=== PATIENT | male | born 1935 | race Caucasian/White ===

== ENCOUNTER 2018-01-12 16:56 | Inpatient (IN) | payer MEDICARE, MEDICAID ==
[~2018-01-12] VITALS: Ht 172.7 cm; Wt 74.5 kg
[2018-01-12] MEDS ORDERED: ATEN50TA PO (17:20)
[2018-01-12] MEDS ORDERED: PREG75CA PO ×2 (17:20→22:38)
[2018-01-12] MEDS ORDERED: APIX2.5T PO (17:21)
[2018-01-12] MEDS ORDERED: ROSU20TA PO ×2 (17:21→22:38)
[2018-01-12] MEDS ORDERED: SITA1TAB2 PO ×2 (17:22→22:38)
[2018-01-12] MEDS ORDERED: AMIO200T4 PO (17:22)
[2018-01-12 17:23] LABS: BASOPHILS # (AUTO) 0.1 K/uL (0.0-8.0); BASOPHILS % (AUTO) 0.9 % (0.0-2.0); EOSINOPHILS # (AUTO) 0.1 K/uL (0.0-0.7); EOSINOPHILS % (AUTO) 1.1 % (0.0-7.0); HEMATOCRIT 35.6 % (36.7-47.1); HEMOGLOBIN 12.3 g/dL (12.5-16.3); LYMPHOCYTES # (AUTO) 0.8 K/uL (20.0-40.0); LYMPHOCYTES % (AUTO) 8.6 % (20.5-51.5); MEAN CORPUSCULAR HEMOGLOBIN 30.6 uug (23.8-33.4); MEAN CORPUSCULAR HGB CONC 35 g/dL (32.5-36.3); MEAN CORPUSCULAR VOLUME 88.5 fL (73.0-96.2); MONOCYTES # (AUTO) 0.8 K/uL (2.0-10.0); MONOCYTES % (AUTO) 8.5 % (0.0-11.0); NEUTROPHILS # (AUTO) 7.4 K/uL (1.8-8.9); NEUTROPHILS % (AUTO) 80.9 % (38.5-71.5); PLATELET COUNT (AUTO) 226 K/uL (152-348); RED BLOOD CELL COUNT(AUTO) 4.03 MIL/uL (4.06-5.63); WHITE BLOOD COUNT (AUTO) 9.1 K/uL (3.6-10.2)
[2018-01-12] MEDS ORDERED: POTA10CA43 PO (17:23)
[2018-01-12] MEDS ORDERED: SPIR25TA6 PO (17:23)
[2018-01-12] MEDS ORDERED: ZOLP5TAB8 PO (17:24)
[2018-01-12] MEDS ORDERED: ESOM40CA PO (17:25)
[2018-01-12] MEDS ORDERED: CLON0.3T PO (17:25)
[2018-01-12] MEDS ORDERED: FURO-151 PO (17:25)
[2018-01-12] MEDS ORDERED: DUTA0.5C PO (17:26)
[2018-01-12] MEDS ORDERED: GLIM4TAB3 PO (17:26)
[2018-01-12 17:31] LABS: CARBON DIOXIDE 24 mmol/L (21-32); CHLORIDE 99 mmol/L (98-107); CREATININE 2.6 mg/dL (0.6-1.3); POTASSIUM 4.2 mmol/L (3.5-5.1); UREA NITROGEN, BLOOD 35 mg/dL (7-18)
[2018-01-12 17:44] LABS: GLUCOSE 326 mg/dL (74-106)
[2018-01-12 17:46] LABS: ALANINE AMINOTRANSFERASE 25 U/L (16-63); ALKALINE PHOSPHATASE 51 U/L (50-136); ASPARTATE AMINOTRANSFERASE 18 U/L (15-37); BILIRUBIN,DIRECT 0.2 mg/dL (0.0-0.2); BILIRUBIN,TOTAL 0.7 mg/dL (0.2-1.0); TOTAL PROTEIN, SERUM 7.2 g/dL (6.4-8.2)
[2018-01-12] MEDS ORDERED: NITROGLYCERIN OINT 1 GM PACKET TP ONE ×2 (18:00→18:15)
[2018-01-12] MEDS ORDERED: FUROSEMIDE 20 MG/2 ML VIAL IV ONE (18:15)
[2018-01-12] MEDS ORDERED: FUROSEMIDE 40 MG/4 ML VIAL ONE (18:32)
[2018-01-12 19:42] VITALS: BP 169/86
[2018-01-12] MEDS ORDERED: Z GUARD REMEDY PASTE 57 GM TUBE TOP PRN (22:00)
[2018-01-12] MEDS ORDERED: DEXTROSE 50% 50 ML DISP.SYRIN IV PRN (22:00)
[2018-01-12] MEDS ORDERED: IPRATROPIUM BROMIDE 0.5 MG/2.5 ML NEBU NEB PRN (22:00)
[2018-01-12] MEDS ORDERED: ACETAMINOPHEN 325 MG TABLET PO PRN (22:00)
[2018-01-12] MEDS ORDERED: ONDANSETRON 4 MG/2 ML VIAL IV PRN (22:00)
[2018-01-12] MEDS ORDERED: HYDROCODONE/APAP 5-325MG TABLET PO PRN (22:00)
[2018-01-12] MEDS ORDERED: MAGNESIUM HYDROXIDE 30 ML LIQUID UDC PO PRN (22:00)
[2018-01-12] MEDS ORDERED: AMIODARONE HCL 200 MG TABLET PO STA (22:31)
[2018-01-12] MEDS ORDERED: ATORVASTATIN 20 MG TABLET PO SCH (23:15)
[2018-01-12] MEDS ORDERED: GLIMEPIRIDE 4 MG TABLET PO SCH (23:15)
[2018-01-12] MEDS ORDERED: ZOLPIDEM 5 MG TABLET PO SCH (23:15)
[2018-01-12] MEDS ORDERED: APIXABAN 5 MG TABLET PO SCH (23:15)
[2018-01-12] MEDS: ZOLPIDEM 5 MG TABLET PO SCH (23:47)
[2018-01-13] VITALS: BP 184/99
[2018-01-13 04:00] VITALS: BP 175/104
[2018-01-13] MEDS: CLONIDINE HCL 0.3 MG TABLET PO SCH ×3 (04:53→17:24)
[2018-01-13] MEDS: PANTOPRAZOLE SODIUM 40 MG TABLET.DR PO SCH (06:41)
[2018-01-13 06:45] LABS: BASOPHILS % (AUTO) 0.4 % (0.0-2.0); EOSINOPHILS # (AUTO) 0.1 K/uL (0.0-0.7); EOSINOPHILS % (AUTO) 0.6 % (0.0-7.0); HEMOGLOBIN 12.6 g/dL (12.5-16.3); LYMPHOCYTES % (AUTO) 9.8 % (20.5-51.5); MEAN CORPUSCULAR HEMOGLOBIN 30.5 uug (23.8-33.4); MEAN CORPUSCULAR HGB CONC 35 g/dL (32.5-36.3); MEAN CORPUSCULAR VOLUME 87.5 fL (73.0-96.2); MONOCYTES # (AUTO) 0.9 K/uL (2.0-10.0); MONOCYTES % (AUTO) 8.4 % (0.0-11.0); NEUTROPHILS # (AUTO) 8.3 K/uL (1.8-8.9); NEUTROPHILS % (AUTO) 80.8 % (38.5-71.5); PLATELET COUNT (AUTO) 223 K/uL (152-348); RED BLOOD CELL COUNT(AUTO) 4.12 MIL/uL (4.06-5.63); WHITE BLOOD COUNT (AUTO) 10.3 K/uL (3.6-10.2)
[2018-01-13 06:58] LABS: CHLORIDE 100 mmol/L (98-107); CHOLESTEROL 184 mg/dL (<200); CREATININE 2.7 mg/dL (0.6-1.3); GLUCOSE 166 mg/dL (74-106); HDL CHOLESTEROL 62 mg/dL (40-60); MAGNESIUM 1.9 mg/dL (1.8-2.4); PHOSPHOROUS 4.1 mg/dL (2.5-4.9); POTASSIUM 3.3 mmol/L (3.5-5.1); TRIGLYCERIDES 78 MG/DL (30-150); UREA NITROGEN, BLOOD 40 mg/dL (7-18)
[2018-01-13] MEDS: ATENOLOL 50 MG TABLET PO SCH (07:06)
[2018-01-13 07:08] LABS: CARBON DIOXIDE 24 mmol/L (21-32)
[2018-01-13] MEDS: BLOOD SUGAR DIAGNOSTIC 1 EACH STRIP VI SCH ×4 (07:42→20:27)
[2018-01-13] MEDS: INSULIN REGULAR, HUMAN 300 UNIT/3 ML VIAL SQ PRN ×4 (08:33→20:20)
[2018-01-13] MEDS: DUTASTERIDE 0.5 MG CAPSULE PO SCH (08:58)
[2018-01-13] MEDS: AMIODARONE HCL 200 MG TABLET PO SCH (08:58)
[2018-01-13] MEDS: PREGABALIN 25 MG CAPSULE PO SCH (08:58)
[2018-01-13] MEDS: GLIMEPIRIDE 4 MG TABLET PO SCH ×2 (08:58→17:23)
[2018-01-13] MEDS: AMLODIPINE 5 MG TABLET PO SCH (08:59)
[2018-01-13] MEDS ORDERED: POTASSIUM CHLORIDE 10 MEQ TAB.PRT.SR PO SCH ×2 (09:00)
[2018-01-13] MEDS ORDERED: SPIRONOLACTONE 25 MG TABLET PO SCH (09:00)
[2018-01-13] MEDS ORDERED: APIXABAN 5 MG TABLET PO SCH (09:00)
[2018-01-13] MEDS: SPIRONOLACTONE 25 MG TABLET PO SCH (09:07)
[2018-01-13 11:36] VITALS: BP 166/97
[2018-01-13] MEDS ORDERED: POTASSIUM CHLORIDE 10 MEQ TAB.PRT.SR PO ONE (17:00)
[2018-01-13] MEDS ORDERED: APIXABAN 5 MG TABLET PO ONE (17:00)
[2018-01-13] MEDS ORDERED: FUROSEMIDE 40 MG/4 ML VIAL IV SCH (17:45)
[2018-01-13 19:00] VITALS: BP 139/88
[2018-01-13] MEDS: ATORVASTATIN 20 MG TABLET PO SCH (21:02)
[2018-01-13] MEDS: ZOLPIDEM 5 MG TABLET PO SCH (21:02)
[2018-01-13 22:18] LABS: *BILIRUBIN,URIN NEGATIVE (NEGATIVE); *BLOOD, URINE Trace-intact (NEGATIVE); *CLARITY,URINE CLEAR (CLEAR); *COLOR,URINE YELLOW (YELLOW); *KETONES,URINE NEGATIVE (NEGATIVE); *PROTEIN,URINE NEGATIVE (NEGATIVE); *UROBILINOGEN,URINE 0.2 E.U./dl (NORMAL); LEUKOCYTE ESTERASE ,URINE NEGATIVE (NEGATIVE); NITRITE, URINE NEGATIVE (NEGATIVE); UGLUCOSE NEGATIVE (NEGATIVE)
[2018-01-13 22:22] LABS: BACTERIA,URINE RARE /HPF (NONE SEEN); SQUAMOUS EPITHELIAL CELL,UR FEW /HPF (NONE SEEN); WBC,URINE 0-3 /HPF (0-3)
[2018-01-13 22:25] LABS: *CREATININE,URINE 24.3 mg/dL (30-125); *URINE TOTAL PROTEIN RANDOM 23.9 mg/dL (<150/24HR)
[2018-01-14] VITALS: BP 149/84
[2018-01-14 04:00] VITALS: BP 162/94
[2018-01-14] MEDS: PANTOPRAZOLE SODIUM 40 MG TABLET.DR PO SCH (06:05)
[2018-01-14] MEDS: BLOOD SUGAR DIAGNOSTIC 1 EACH STRIP VI SCH ×4 (06:31→20:29)
[2018-01-14 06:34] LABS: ALANINE AMINOTRANSFERASE 23 U/L (16-63); ALKALINE PHOSPHATASE 51 U/L (50-136); ASPARTATE AMINOTRANSFERASE 16 U/L (15-37); BILIRUBIN,TOTAL 0.8 mg/dL (0.2-1.0); CARBON DIOXIDE 27 mmol/L (21-32); CHLORIDE 100 mmol/L (98-107); CREATININE 2.7 mg/dL (0.6-1.3); GLUCOSE 134 mg/dL (74-106); MAGNESIUM 1.9 mg/dL (1.8-2.4); PHOSPHOROUS 4.1 mg/dL (2.5-4.9); POTASSIUM 3.3 mmol/L (3.5-5.1); TOTAL PROTEIN, SERUM 7.3 g/dL (6.4-8.2); UREA NITROGEN, BLOOD 41 mg/dL (7-18)
[2018-01-14 07:37] LABS: BASOPHILS # (AUTO) 0.1 K/uL (0.0-8.0); BASOPHILS % (AUTO) 0.7 % (0.0-2.0); EOSINOPHILS # (AUTO) 0.2 K/uL (0.0-0.7); EOSINOPHILS % (AUTO) 1.7 % (0.0-7.0); HEMOGLOBIN 12.7 g/dL (12.5-16.3); LYMPHOCYTES # (AUTO) 1.7 K/uL (20.0-40.0); LYMPHOCYTES % (AUTO) 16.4 % (20.5-51.5); MEAN CORPUSCULAR HEMOGLOBIN 30.2 uug (23.8-33.4); MEAN CORPUSCULAR HGB CONC 34 g/dL (32.5-36.3); MEAN CORPUSCULAR VOLUME 88.1 fL (73.0-96.2); MONOCYTES # (AUTO) 0.9 K/uL (2.0-10.0); MONOCYTES % (AUTO) 8.7 % (0.0-11.0); NEUTROPHILS # (AUTO) 7.7 K/uL (1.8-8.9); NEUTROPHILS % (AUTO) 72.5 % (38.5-71.5); PLATELET COUNT (AUTO) 236 K/uL (152-348); WHITE BLOOD COUNT (AUTO) 10.6 K/uL (3.6-10.2)
[2018-01-14] MEDS: AMIODARONE HCL 200 MG TABLET PO SCH (08:00)
[2018-01-14] MEDS: DUTASTERIDE 0.5 MG CAPSULE PO SCH (08:00)
[2018-01-14] MEDS: GLIMEPIRIDE 4 MG TABLET PO SCH ×2 (08:01→16:41)
[2018-01-14] MEDS: AMLODIPINE 5 MG TABLET PO SCH (08:01)
[2018-01-14] MEDS: CLONIDINE HCL 0.3 MG TABLET PO SCH ×3 (08:01→16:42)
[2018-01-14] MEDS: PREGABALIN 25 MG CAPSULE PO SCH (08:02)
[2018-01-14] MEDS: ATENOLOL 50 MG TABLET PO SCH (08:02)
[2018-01-14] MEDS: SPIRONOLACTONE 25 MG TABLET PO SCH (08:02)
[2018-01-14] MEDS ORDERED: FUROSEMIDE 40 MG/4 ML VIAL IV SCH (09:00)
[2018-01-14] MEDS ORDERED: APIXABAN 5 MG TABLET PO ONE (09:00)
[2018-01-14] MEDS ORDERED: POTASSIUM CHLORIDE 20 MEQ POWDER PACKET PO ONE (10:45)
[2018-01-14 11:20] VITALS: BP 144/71
[2018-01-14] MEDS: INSULIN REGULAR, HUMAN 300 UNIT/3 ML VIAL SQ PRN ×2 (12:25→20:30)
[2018-01-14 15:50] VITALS: BP 132/83
[2018-01-14] MEDS: APIXABAN 2.5 MG PO SCH (16:41)
[2018-01-14] MEDS ORDERED: APIXABAN 5 MG TABLET PO SCH (17:00)
[2018-01-14 19:00] VITALS: BP 127/78
[2018-01-14] MEDS: ATORVASTATIN 20 MG TABLET PO SCH (21:10)
[2018-01-14] MEDS: ZOLPIDEM 5 MG TABLET PO SCH (21:10)
[2018-01-15] VITALS: BP 144/94
[2018-01-15 05:30] VITALS: BP 164/84
[2018-01-15] MEDS: CLONIDINE HCL 0.3 MG TABLET PO SCH ×3 (05:50→17:21)
[2018-01-15] MEDS: PANTOPRAZOLE SODIUM 40 MG TABLET.DR PO SCH (06:03)
[2018-01-15] MEDS: BLOOD SUGAR DIAGNOSTIC 1 EACH STRIP VI SCH ×3 (06:30→16:11)
[2018-01-15 06:40] LABS: CARBON DIOXIDE 26 mmol/L (21-32); CHLORIDE 103 mmol/L (98-107); CREATININE 2.7 mg/dL (0.6-1.3); GLUCOSE 90 mg/dL (74-106); MAGNESIUM 1.7 mg/dL (1.8-2.4); PHOSPHOROUS 4.7 mg/dL (2.5-4.9); UREA NITROGEN, BLOOD 43 mg/dL (7-18)
[2018-01-15] MEDS: PREGABALIN 25 MG CAPSULE PO SCH (08:05)
[2018-01-15] MEDS: APIXABAN 2.5 MG PO SCH ×2 (08:05→17:21)
[2018-01-15] MEDS: DUTASTERIDE 0.5 MG CAPSULE PO SCH (08:05)
[2018-01-15] MEDS: GLIMEPIRIDE 4 MG TABLET PO SCH ×2 (08:06→17:21)
[2018-01-15] MEDS: AMLODIPINE 5 MG TABLET PO SCH (08:06)
[2018-01-15] MEDS: ATENOLOL 50 MG TABLET PO SCH (08:07)
[2018-01-15] MEDS ORDERED: POTASSIUM CHLORIDE 10 MEQ TAB.PRT.SR PO ONE (08:45)
[2018-01-15] MEDS ORDERED: FUROSEMIDE 40 MG TABLET PO SCH (09:00)
[2018-01-15] MEDS: INSULIN REGULAR, HUMAN 300 UNIT/3 ML VIAL SQ PRN (11:21)
[2018-01-15 11:37] VITALS: BP 148/90
[2018-01-15] MEDS ORDERED: MAGNESIUM SULFATE/D5W 100 ML IV SCH (12:30)
[2018-01-15] MEDS ORDERED: MAGNESIUM OXIDE 400 MG TABLET PO ONE (15:00)
[2018-01-15 16:09] VITALS: BP 100/61
[2018-01-15 17:21] VITALS: BP 151/91
== END 2018-01-15 17:55 | disposition home health service (06) | DRG 291 ==
LOC: ER 16:59 → TELE 18:08
PROVIDERS: ADMIT Family Medicine; ATTEND Nurse Practitioner Acute Care
DX: I13.0 Hypertensive heart and chronic kidney disease with heart failure and stage 1 through stage 4 chronic kidney disease, or unspecified chronic kidney disease (principal); I50.43 Acute on chronic combined systolic (congestive) and diastolic (congestive) heart failure; N17.0 Acute kidney failure with tubular necrosis; J96.01 Acute respiratory failure with hypoxia; E87.2 Acidosis; D68.59 Other primary thrombophilia; E87.1 Hypo-osmolality and hyponatremia; E11.22 Type 2 diabetes mellitus with diabetic chronic kidney disease; E11.65 Type 2 diabetes mellitus with hyperglycemia; N18.9 Chronic kidney disease, unspecified; Z79.84 Long term (current) use of oral hypoglycemic drugs; Z79.01 Long term (current) use of anticoagulants; T38.3X5A Adverse effect of insulin and oral hypoglycemic [antidiabetic] drugs, initial encounter; Y92.019 Unspecified place in single-family (private) house as the place of occurrence of the external cause; Z74.09 Other reduced mobility; E78.5 Hyperlipidemia, unspecified; N40.0 Benign prostatic hyperplasia without lower urinary tract symptoms; K21.9 Gastro-esophageal reflux disease without esophagitis; I48.2 Chronic atrial fibrillation; E87.6 Hypokalemia; I25.10 Atherosclerotic heart disease of native coronary artery without angina pectoris; D63.8 Anemia in other chronic diseases classified elsewhere; I70.0 Atherosclerosis of aorta
CPT/HCPCS: 36415; 70030-TC; 71045; 76770; 83605; 83735; 84100; 84156; 84300; 85025; 85730; 87040; 93005; 93307; A4663; J1815; J1940; J3475; J7030; J7040

== ENCOUNTER 2018-07-09 15:17 | Inpatient (IN) | payer MEDICARE, MEDICAID ==
[~2018-07-09] VITALS: Ht 172.7 cm; Wt 70.8 kg
[~2018-07-09 15:17] MED LIST: APIX2.5T PO; ATEN50TA PO; CLON0.3T PO; DUTA0.5C PO; ESOM40CA PO; FURO-151 PO; GLIM4TAB3 PO; POTA10CA43 PO; PREG75CA PO; ROSU20TA2 PO; ZOLP5TAB8 PO
--- NOTE | 2018-07-09 15:50 | NUR ---
PT IS IN ROOM #1B. DR MAHMOOD EVALUATED THE PT.
[2018-07-09] MEDS ORDERED: NIFE30TA91 PO (15:51)
[2018-07-09] MEDS ORDERED: TAMS-3 PO (15:51)
[2018-07-09] MEDS ORDERED: SITA1TAB2 PO (15:51)
[2018-07-09] MEDS ORDERED: TRAM50TA2 PO (15:51)
[2018-07-09] MEDS ORDERED: MONT10TA22 PO (15:51)
[2018-07-09] MEDS ORDERED: BUDE10.2 INH (15:51)
[2018-07-09] MEDS ORDERED: MECL-102 PO (15:51)
[2018-07-09] MEDS ORDERED: FERR325T28 PO (15:51)
[2018-07-09 15:53] LABS: BASOPHILS % (AUTO) 0.5 % (0.0-2.0); EOSINOPHILS # (AUTO) 0.1 K/uL (0.0-0.7); EOSINOPHILS % (AUTO) 1.9 % (0.0-7.0); HEMATOCRIT 33.3 % (36.7-47.1); HEMOGLOBIN 11.2 g/dL (12.5-16.3); LYMPHOCYTES # (AUTO) 1.2 K/uL (20.0-40.0); LYMPHOCYTES % (AUTO) 14.6 % (20.5-51.5); MEAN CORPUSCULAR HEMOGLOBIN 28.4 uug (23.8-33.4); MEAN CORPUSCULAR HGB CONC 34 g/dL (32.5-36.3); MEAN CORPUSCULAR VOLUME 84.6 fL (73.0-96.2); MONOCYTES # (AUTO) 0.6 K/uL (2.0-10.0); MONOCYTES % (AUTO) 7.3 % (0.0-11.0); NEUTROPHILS # (AUTO) 6.1 K/uL (1.8-8.9); NEUTROPHILS % (AUTO) 75.7 % (38.5-71.5); PLATELET COUNT (AUTO) 250 K/uL (152-348); RED BLOOD CELL COUNT(AUTO) 3.94 MIL/uL (4.06-5.63)
[2018-07-09 15:55] LABS: POTASSIUM 3.6 mmol/L (3.5-5.1)
[2018-07-09 15:58] LABS: CARBON DIOXIDE 27 mmol/L (21-32); CHLORIDE 97 mmol/L (98-107); CREATININE 2.6 mg/dL (0.6-1.3); GLUCOSE 247 mg/dL (74-106); UREA NITROGEN, BLOOD 54 mg/dL (7-18)
[2018-07-09 16:08] LABS: ALANINE AMINOTRANSFERASE 18 U/L (16-63); ALKALINE PHOSPHATASE 63 U/L (50-136); ASPARTATE AMINOTRANSFERASE 9 U/L (15-37); BILIRUBIN,DIRECT 0.2 mg/dL (0.0-0.2); BILIRUBIN,TOTAL 0.6 mg/dL (0.2-1.0); TOTAL PROTEIN, SERUM 7.2 g/dL (6.4-8.2)
[2018-07-09] MEDS ORDERED: NITROGLYCERIN OINT 1 GM PACKET TP ONE ×2 (17:00→17:21)
[2018-07-09] MEDS ORDERED: ASPIRIN 81 MG TAB.CHEW PO ONE (17:00)
[2018-07-09] MEDS ORDERED: ASPIRIN 81 MG TAB.CHEW ONE (17:21)
[2018-07-09] MEDS ORDERED: FUROSEMIDE 20 MG/2 ML VIAL IV ONE (18:00)
[2018-07-09] MEDS ORDERED: FUROSEMIDE 40 MG/4 ML VIAL ONE (18:09)
--- NOTE | 2018-07-09 19:28 | NUR ---
Report given to Akilah SU DOU.
[2018-07-09] MEDS ORDERED: ONDANSETRON 4 MG/2 ML VIAL IV PRN (20:00)
[2018-07-09] MEDS ORDERED: TRAMADOL HCL 50 MG TABLET PO PRN ×2 (20:00→20:30)
[2018-07-09] MEDS ORDERED: MORPHINE SULFATE 2 MG/1 ML DISP.SYRIN IV PRN (20:00)
[2018-07-09] MEDS ORDERED: CLONIDINE HCL 0.3 MG TABLET PO SCH (20:00)
[2018-07-09] MEDS ORDERED: ACETAMINOPHEN 325 MG TABLET PO PRN (20:00)
[2018-07-09] MEDS ORDERED: ALBUTEROL SULFATE 2.5 MG/3 ML NEBU NEB PRN (20:00)
[2018-07-09] MEDS ORDERED: DEXTROSE 50% 50 ML DISP.SYRIN IV PRN (20:15)
--- NOTE | 2018-07-09 20:20 | NUR ---
ROBERT RAMIREZ, PT A/A/O TIMES 4, SPEAKS LITTLE BELIZEAN. NO DISTRESS NOTED, FAMILY AT BS
[2018-07-09 20:55] VITALS: BP 177/101
[2018-07-09] MEDS: BLOOD SUGAR DIAGNOSTIC 1 EACH STRIP VI SCH (21:00)
[2018-07-09] MEDS ORDERED: HOME MED MISCELLANEOUS PO SCH (21:00)
[2018-07-09] MEDS: TAMSULOSIN HCL 0.4 MG CAP.SR.24H PO SCH (21:56)
[2018-07-09] MEDS: DOCUSATE SODIUM 100 MG CAPSULE PO SCH (21:56)
[2018-07-09] MEDS: INSULIN REGULAR, HUMAN 300 UNIT/3 ML VIAL SQ PRN (22:36)
[2018-07-10] VITALS (7 sets, daily range): BP systolic 94–152; BP diastolic 58–89
[2018-07-10 05:57] LABS: BASOPHILS % (AUTO) 0.5 % (0.0-2.0); EOSINOPHILS # (AUTO) 0.1 K/uL (0.0-0.7); EOSINOPHILS % (AUTO) 0.7 % (0.0-7.0); HEMOGLOBIN 10.5 g/dL (12.5-16.3); LYMPHOCYTES % (AUTO) 10.7 % (20.5-51.5); MEAN CORPUSCULAR HEMOGLOBIN 28.6 uug (23.8-33.4); MEAN CORPUSCULAR HGB CONC 34 g/dL (32.5-36.3); MEAN CORPUSCULAR VOLUME 84.6 fL (73.0-96.2); MONOCYTES # (AUTO) 0.6 K/uL (2.0-10.0); MONOCYTES % (AUTO) 7.2 % (0.0-11.0); NEUTROPHILS # (AUTO) 7.2 K/uL (1.8-8.9); NEUTROPHILS % (AUTO) 80.9 % (38.5-71.5); PLATELET COUNT (AUTO) 224 K/uL (152-348); RED BLOOD CELL COUNT(AUTO) 3.67 MIL/uL (4.06-5.63); WHITE BLOOD COUNT (AUTO) 8.9 K/uL (3.6-10.2)
[2018-07-10 06:01] LABS: IRON, SERUM 26 ug/dL (50-175)
[2018-07-10 06:06] LABS: ALANINE AMINOTRANSFERASE 17 U/L (16-63); ALKALINE PHOSPHATASE 57 U/L (50-136); ASPARTATE AMINOTRANSFERASE 8 U/L (15-37); BILIRUBIN,TOTAL 0.6 mg/dL (0.2-1.0); CARBON DIOXIDE 28 mmol/L (21-32); CHLORIDE 98 mmol/L (98-107); CREATININE 2.5 mg/dL (0.6-1.3); GLUCOSE 182 mg/dL (74-106); MAGNESIUM 2.1 mg/dL (1.8-2.4); PHOSPHOROUS 4.3 mg/dL (2.5-4.9); POTASSIUM 3.1 mmol/L (3.5-5.1); TOTAL PROTEIN, SERUM 6.7 g/dL (6.4-8.2); UREA NITROGEN, BLOOD 55 mg/dL (7-18)
[2018-07-10 06:26] LABS: CHOLESTEROL 143 mg/dL (<200); HDL CHOLESTEROL 48 mg/dL (40-60); TRIGLYCERIDES 82 MG/DL (30-150)
[2018-07-10] MEDS: BLOOD SUGAR DIAGNOSTIC 1 EACH STRIP VI SCH ×4 (06:37→21:53)
[2018-07-10] MEDS: PANTOPRAZOLE SODIUM 40 MG TABLET.DR PO SCH (06:51)
--- NOTE | 2018-07-10 07:00 | NUR ---
HARDLY SLEPT DUE TO FREQUENCY OF GOING TO BR TO VOID, OFFERED URINAL BUT REFUSED TO USE IT. BUT WAS PLEASANT
--- NOTE | 2018-07-10 07:10 | NUR ---
patient received, head to toe assessment is done, safety and comfort measures are implemented, pictures taken for big toe wound, in the file, patient is resting , bed in low position,locked, side rails up x2, continue to monitor
[2018-07-10] MEDS: CLONIDINE HCL 0.3 MG TABLET PO SCH ×3 (07:58→22:01)
[2018-07-10] MEDS ORDERED: GLIMEPIRIDE 2 MG TABLET PO SCH (08:00)
[2018-07-10] MEDS: INSULIN REGULAR, HUMAN 300 UNIT/3 ML VIAL SQ PRN ×4 (08:01→22:04)
[2018-07-10] MEDS: MONTELUKAST SODIUM 10 MG TABLET PO SCH (08:21)
[2018-07-10] MEDS: FERROUS SULFATE 325 MG TABEC PO SCH ×2 (08:21→16:31)
[2018-07-10] MEDS: ATENOLOL 50 MG TABLET PO SCH (08:24)
[2018-07-10] MEDS: PREGABALIN 25 MG CAPSULE PO SCH ×2 (08:36→16:24)
[2018-07-10] MEDS: NIFEdipine XL 30 MG TABSR PO SCH (08:37)
[2018-07-10] MEDS ORDERED: Medication Not On Formulary EA (Apixaban (Eliquis) 2.5 MG) PO SCH (09:00)
[2018-07-10] MEDS ORDERED: FUROSEMIDE 20 MG/2 ML VIAL IV SCH (09:00)
[2018-07-10] MEDS ORDERED: NIFEDIPINE PO SCH (09:00)
[2018-07-10] MEDS ORDERED: POTASSIUM CHLORIDE 20 MEQ TAB.PRT.SR PO ONE (09:30)
[2018-07-10 10:00] LABS: THYROID STIMULATING HORMONE 0.066 mIU/mL (0.358-3.740)
[2018-07-10] MEDS: FLUTICASONE/VILANTEROL 1 EACH BLST.W.DEV INH SCH (11:18)
--- NOTE | 2018-07-10 11:30 | NUR ---
SEEN BY PHYSICAL THERAPIST FOR EVAL SEE NOTES
--- NOTE | 2018-07-10 16:00 | NUR ---
SEEN BY DR KELLY WITH NEW LASIX ORDER X1 DOSE, PATIENT EASILY GETS SOB CONTINUE WITH O2 AT 3L NC
--- NOTE | 2018-07-10 17:53 | NUR ---
CONTINUE WITH TELE OBSERVATION REMAINS CONTROLLED AFIB ON MONITOR
[2018-07-10] MEDS ORDERED: FUROSEMIDE 20 MG/2 ML VIAL IV ONE (18:00)
[2018-07-10] MEDS ORDERED: ROSUVASTATIN 20MG PO SCH (21:00)
[2018-07-10] MEDS: DOCUSATE SODIUM 100 MG CAPSULE PO SCH (21:14)
[2018-07-10] MEDS: TAMSULOSIN HCL 0.4 MG CAP.SR.24H PO SCH (21:15)
[2018-07-11 03:25] VITALS: BP 150/91
--- NOTE | 2018-07-11 06:12 | NUR ---
received patient in bed. Patient is alert and oriented x2. patient rested through out the shift. Still pending stool from patient for stool occult. patient expressed difficulty in passing bowel movement. Patient was given colace 100mg. Patient unable to pass a BM, will endorse to oncoming shift. Patient is compliant with all medication administration and medical treatment. Patient denies any pain/respiratory discomfort at this time. Patient is able to verbalize needs and needs have been met. Will continue to monitor and endorse POC to oncoming shift nurse.
[2018-07-11] MEDS: PANTOPRAZOLE SODIUM 40 MG TABLET.DR PO SCH (06:17)
[2018-07-11] MEDS: CLONIDINE HCL 0.3 MG TABLET PO SCH ×2 (06:28→14:01)
[2018-07-11 06:30] LABS: BASOPHILS # (AUTO) 0.1 K/uL (0.0-8.0); BASOPHILS % (AUTO) 0.8 % (0.0-2.0); EOSINOPHILS # (AUTO) 0.3 K/uL (0.0-0.7); EOSINOPHILS % (AUTO) 4.2 % (0.0-7.0); HEMATOCRIT 29.8 % (36.7-47.1); HEMOGLOBIN 10.2 g/dL (12.5-16.3); LYMPHOCYTES # (AUTO) 1.4 K/uL (20.0-40.0); LYMPHOCYTES % (AUTO) 17.5 % (20.5-51.5); MEAN CORPUSCULAR HEMOGLOBIN 28.8 uug (23.8-33.4); MEAN CORPUSCULAR HGB CONC 34 g/dL (32.5-36.3); MEAN CORPUSCULAR VOLUME 84.2 fL (73.0-96.2); MONOCYTES # (AUTO) 0.8 K/uL (2.0-10.0); NEUTROPHILS # (AUTO) 5.4 K/uL (1.8-8.9); NEUTROPHILS % (AUTO) 67.5 % (38.5-71.5); PLATELET COUNT (AUTO) 221 K/uL (152-348); RED BLOOD CELL COUNT(AUTO) 3.54 MIL/uL (4.06-5.63)
[2018-07-11] MEDS: BLOOD SUGAR DIAGNOSTIC 1 EACH STRIP VI SCH ×2 (06:30→11:41)
[2018-07-11 06:45] LABS: ALANINE AMINOTRANSFERASE 14 U/L (16-63); ALKALINE PHOSPHATASE 50 U/L (50-136); ASPARTATE AMINOTRANSFERASE 7 U/L (15-37); BILIRUBIN,TOTAL 0.5 mg/dL (0.2-1.0); CARBON DIOXIDE 27 mmol/L (21-32); CHLORIDE 99 mmol/L (98-107); CREATINE KINASE, TOTAL 51 U/L (39-308); CREATININE 2.7 mg/dL (0.6-1.3); GLUCOSE 100 mg/dL (74-106); MAGNESIUM 2.2 mg/dL (1.8-2.4); PHOSPHOROUS 4.1 mg/dL (2.5-4.9); TOTAL PROTEIN, SERUM 6.5 g/dL (6.4-8.2); UREA NITROGEN, BLOOD 62 mg/dL (7-18)
--- NOTE | 2018-07-11 07:15 | NUR ---
PATIENT RECEIVED ON BED AWAKE, AAOX3, IRISH SPEAKING. NO ACUTE DISTRESS NOTED. IV ACCESS ON RIGHT FOREARM #18 SALINE LOCK INTACT AND PATENT. PER UTILITY CLERK PATIENT EXPRESSED DIFFICULTY IN PASSING STOOL. BG 116 NO INSULIN COVERAGE NEEDED. COMFORT MEASURES PROVIDED. CALL LIGHT WITHIN REACH. WILL CONTINUE TO MONITOR CLOSELY.
[2018-07-11] MEDS ORDERED: GLIMEPIRIDE 2 MG TABLET PO SCH (08:00)
[2018-07-11] MEDS ORDERED: FUROSEMIDE 40 MG TABLET PO SCH (09:00)
[2018-07-11] MEDS: FLUTICASONE/VILANTEROL 1 EACH BLST.W.DEV INH SCH (09:24)
[2018-07-11] MEDS: FERROUS SULFATE 325 MG TABEC PO SCH (09:24)
[2018-07-11] MEDS: MONTELUKAST SODIUM 10 MG TABLET PO SCH (09:24)
[2018-07-11] MEDS: PREGABALIN 25 MG CAPSULE PO SCH (09:24)
[2018-07-11] MEDS: NIFEdipine XL 30 MG TABSR PO SCH (09:24)
[2018-07-11] MEDS: ATENOLOL 50 MG TABLET PO SCH (09:25)
[2018-07-11 11:06] VITALS: BP 106/64
[2018-07-11] MEDS: INSULIN REGULAR, HUMAN 300 UNIT/3 ML VIAL SQ PRN (11:42)
[2018-07-11] MEDS ORDERED: POTASSIUM CHLORIDE 20 MEQ POWDER PACKET PO ONE (12:00)
--- NOTE | 2018-07-11 12:06 | NUR ---
seen and examined by dr. meneses
[2018-07-11] MEDS ORDERED: LACTULOSE 20 G/30 ML LIQUID UDC PO ONE (12:15)
--- NOTE | 2018-07-11 13:24 | NUR ---
WOUND CARE CONSULT: PT PRESENTS WITH RT DISTAL GREAT TOE DRY ULCER, PRESENT ON ADMISSION. RECOMMEND DPM CONSULT. PT IS CONTINENT AT THIS TIME AND ABLE TO ASSIST WITH TURNING AND REPOSITIONING IN BED. WILL SEE PRN. FORTE IN AGREEMENT WITH PLAN OF CARE. Addendum: 07/11/18 at 1325 by MARY BLISS RN Amended: Links added.
[2018-07-11 15:06] VITALS: BP 116/59
[2018-07-11] MEDS ORDERED: GLIM1TAB PO (15:43)
[2018-07-11] MEDS ORDERED: SITA50TA PO (15:43)
[2018-07-11] MEDS ORDERED: TAMS-3 PO (15:43)
--- NOTE | 2018-07-11 16:40 | NUR ---
SEEN AND EXAMINED BY POSIATRIST, W/ ORDERS ON RIGHT BIG TOE TO APPLY BETADINE AND WRAP WITH MEPILEX, NOTED AND CARRIED OUT
--- NOTE | 2018-07-11 17:10 | NUR ---
DISCHARGED PATIENT TO HOME WITH HOME HEALTH IN STABLE CONDITION. DISCHARGE PAPERS DNA INSTRUCTIONS GIVEN AND EXPLAINED TO PATIENT AND SON. PRESCRIPTIONS GIVEN AND FAXED TO [facility]. IV ACCESS REMOVED, WELL TOLERATED. ID BAND DISPOSED PROPERLY. PATIENT WHEELED DOWN TO LOBBY BY [facility], LEFT HOSPITAL VIA PRIVATE CAR
[2018-07-12 14:06] LABS: A/G RATIO 1.3 (0.7-1.7); ALBUMIN 3.3 g/dL (2.9-4.4); ALPHA-1-GLOBULIN 0.2 g/dL (0.0-0.4); ALPHA-2-GLOBULIN 0.6 g/dL (0.4-1.0); BETA GLOBULIN 0.9 g/dL (0.7-1.3); GAMMA GLOBULIN 0.9 g/dL (0.4-1.8); GLOBULIN, TOTAL 2.6 g/dL (2.2-3.9); M-SPIKE Not Observed g/dL (Not Observed)
== END 2018-07-11 17:10 | disposition home health service (06) | DRG 280 ==
LOC: ER 15:17 → TELE-TD3 19:41 → TELE3 07-10 13:06 → MEDSURG3 07-11 11:32
PROVIDERS: ADMIT Internal Medicine; ATTEND Internal Medicine
DX: I13.0 Hypertensive heart and chronic kidney disease with heart failure and stage 1 through stage 4 chronic kidney disease, or unspecified chronic kidney disease (principal); I50.33 Acute on chronic diastolic (congestive) heart failure; I21.A1 Myocardial infarction type 2; J96.01 Acute respiratory failure with hypoxia; D68.59 Other primary thrombophilia; N17.9 Acute kidney failure, unspecified; E11.22 Type 2 diabetes mellitus with diabetic chronic kidney disease; I42.9 Cardiomyopathy, unspecified; E11.65 Type 2 diabetes mellitus with hyperglycemia; N18.9 Chronic kidney disease, unspecified; K59.09 Other constipation; I48.2 Chronic atrial fibrillation; Z79.01 Long term (current) use of anticoagulants; Z79.51 Long term (current) use of inhaled steroids; Z79.899 Other long term (current) drug therapy; N40.0 Benign prostatic hyperplasia without lower urinary tract symptoms; K21.9 Gastro-esophageal reflux disease without esophagitis; I25.10 Atherosclerotic heart disease of native coronary artery without angina pectoris; E78.5 Hyperlipidemia, unspecified; D63.8 Anemia in other chronic diseases classified elsewhere; F03.90 Unspecified dementia, unspecified severity, without behavioral disturbance, psychotic disturbance, mood disturbance, and anxiety; E87.6 Hypokalemia; E11.21 Type 2 diabetes mellitus with diabetic nephropathy; I27.20 Pulmonary hypertension, unspecified; I07.1 Rheumatic tricuspid insufficiency
CPT/HCPCS: 36415; 70030-TC; 71045; 83550; 83735; 83970; 84100; 84155; 84165; 84443; 85025; 85730; 93005; 93307; 94664; 97110; 97116; 97530; A4663; G0378; J1815; J1940

== ENCOUNTER 2018-08-08 11:39 | Inpatient (IN) | payer MEDICARE, MEDICAID ==
[~2018-08-08] VITALS: Ht 170.2 cm; Wt 69.9 kg
[~2018-08-08 11:39] MED LIST changes: +BUDE10.2 INH; -DUTA0.5C PO; +FERR325T28 PO; +GLIM1TAB PO; -GLIM4TAB3 PO; +MECL-102 PO; +MONT10TA22 PO; +NIFE30TA91 PO; -POTA10CA43 PO; +SITA50TA PO; +TAMS-3 PO; +TRAM50TA2 PO; -ZOLP5TAB8 PO
[2018-08-08] MEDS ORDERED: IPRATROPIUM BROMIDE 0.5 MG/2.5 ML NEBU NEB ONE (12:00)
[2018-08-08] MEDS ORDERED: ALBUTEROL SULFATE 2.5 MG/3 ML NEBU NEB ONE (12:00)
[2018-08-08] MEDS ORDERED: NITROGLYCERIN OINT 1 GM PACKET TP ONE ×2 (12:00)
[2018-08-08] MEDS ORDERED: ALBUTEROL SULFATE 2.5 MG/3 ML NEBU ONE (12:05)
[2018-08-08] MEDS ORDERED: IPRATROPIUM BROMIDE 0.5 MG/2.5 ML NEBU ONE (12:05)
[2018-08-08 12:12] LABS: ABG HCO3 21.1 mmol/L; ABG PCO2 24.6 mmHg (35.0-45.0); ABG PH 7.552 (7.350-7.450); ABG PO2 87.7 mmHg (75.0-100.0); ABG SITE RIGHT RADIAL; ABG TOTAL HEMOGLOBIN 11.6 G/dL (13.5-18.0); COHb 1.3 % (0.5-1.5); MetHb 0.3 % (0.0-1.5); O2Hb 96.1 % (94.0-97.0); VENT MODE ROOM AIR
[2018-08-08 12:17] LABS: BASOPHILS # (AUTO) 0.1 K/uL (0.0-8.0); BASOPHILS % (AUTO) 0.8 % (0.0-2.0); EOSINOPHILS # (AUTO) 0.2 K/uL (0.0-0.7); EOSINOPHILS % (AUTO) 1.9 % (0.0-7.0); HEMATOCRIT 34.6 % (36.7-47.1); HEMOGLOBIN 11.5 g/dL (12.5-16.3); LYMPHOCYTES # (AUTO) 1.2 K/uL (20.0-40.0); LYMPHOCYTES % (AUTO) 11.2 % (20.5-51.5); MEAN CORPUSCULAR HEMOGLOBIN 28.7 uug (23.8-33.4); MEAN CORPUSCULAR HGB CONC 33 g/dL (32.5-36.3); MEAN CORPUSCULAR VOLUME 86.5 fL (73.0-96.2); MONOCYTES # (AUTO) 0.8 K/uL (2.0-10.0); MONOCYTES % (AUTO) 7.3 % (0.0-11.0); NEUTROPHILS # (AUTO) 8.2 K/uL (1.8-8.9); NEUTROPHILS % (AUTO) 78.8 % (38.5-71.5); PLATELET COUNT (AUTO) 261 K/uL (152-348); WHITE BLOOD COUNT (AUTO) 10.4 K/uL (3.6-10.2)
[2018-08-08 12:24] LABS: CARBON DIOXIDE 28 mmol/L (21-32); CHLORIDE 102 mmol/L (98-107); CREATININE 2.5 mg/dL (0.6-1.3); GLUCOSE 132 mg/dL (74-106); POTASSIUM 3.6 mmol/L (3.5-5.1); UREA NITROGEN, BLOOD 54 mg/dL (7-18)
[2018-08-08 12:36] LABS: ALANINE AMINOTRANSFERASE 28 U/L (16-63); ALKALINE PHOSPHATASE 61 U/L (50-136); ASPARTATE AMINOTRANSFERASE 13 U/L (15-37); BILIRUBIN,DIRECT 0.2 mg/dL (0.0-0.2); BILIRUBIN,TOTAL 0.6 mg/dL (0.2-1.0); TOTAL PROTEIN, SERUM 7.2 g/dL (6.4-8.2)
[2018-08-08] MEDS ORDERED: FUROSEMIDE 40 MG/4 ML VIAL ONE (14:27)
[2018-08-08] MEDS: FUROSEMIDE 20 MG/2 ML VIAL IV ONE ×2 (14:28→14:36)
[2018-08-08] MEDS ORDERED: FUROSEMIDE 40 MG/4 ML VIAL IV ONE (14:30)
[2018-08-08 16:00] VITALS: BP 161/83
[2018-08-08] MEDS ORDERED: Z GUARD REMEDY PASTE 57 GM TUBE TOP PRN (16:15)
[2018-08-08] MEDS ORDERED: HYDROCODONE/APAP 5-325MG TABLET PO PRN (16:15)
[2018-08-08] MEDS ORDERED: ZOLPIDEM 5 MG TABLET PO PRN (16:15)
[2018-08-08] MEDS ORDERED: MECLIZINE HCL 25 MG TABLET PO PRN (16:15)
[2018-08-08] MEDS ORDERED: ONDANSETRON 4 MG/2 ML VIAL IV PRN (16:15)
[2018-08-08] MEDS ORDERED: TRAMADOL HCL 50 MG TABLET PO PRN (16:15)
[2018-08-08] MEDS ORDERED: MAGNESIUM HYDROXIDE 30 ML LIQUID UDC PO PRN (16:15)
[2018-08-08] MEDS ORDERED: ACETAMINOPHEN 325 MG TABLET PO PRN (16:15)
[2018-08-08] MEDS ORDERED: APIXABAN 5 MG TABLET PO ONE (17:00)
[2018-08-08] MEDS: GLIMEPIRIDE 2 MG TABLET PO SCH (17:26)
[2018-08-08] MEDS: FERROUS SULFATE 325 MG TABEC PO SCH (17:26)
[2018-08-08] MEDS: PREGABALIN 25 MG CAPSULE PO SCH (17:26)
[2018-08-08] MEDS: CLONIDINE HCL 0.3 MG TABLET PO SCH ×2 (17:30→21:57)
[2018-08-08] MEDS ORDERED: GLIMEPIRIDE 2 MG TABLET PO SCH (18:00)
[2018-08-08 20:00] VITALS: BP 146/83
[2018-08-08] MEDS: TAMSULOSIN HCL 0.4 MG CAP.SR.24H PO SCH (21:57)
[2018-08-08] MEDS: methylPREDNISolone SOD SUCC 40 MG/ML VIAL IV SCH (21:58)
[2018-08-08] MEDS: ATORVASTATIN 40 MG TABLET PO SCH (21:58)
[2018-08-08] MEDS: FUROSEMIDE 40 MG/4 ML VIAL IV SCH (21:58)
[2018-08-09] VITALS (7 sets, daily range): BP systolic 133–150; BP diastolic 74–97
[2018-08-09] MEDS: CLONIDINE HCL 0.3 MG TABLET PO SCH ×3 (05:50→21:13)
[2018-08-09] MEDS: methylPREDNISolone SOD SUCC 40 MG/ML VIAL IV SCH ×3 (05:51→21:12)
[2018-08-09] MEDS: PANTOPRAZOLE SODIUM 40 MG TABLET.DR PO SCH (06:08)
[2018-08-09 06:38] LABS: BASOPHILS % (AUTO) 0.3 % (0.0-2.0); EOSINOPHILS % (AUTO) 0.1 % (0.0-7.0); HEMATOCRIT 36.3 % (36.7-47.1); HEMOGLOBIN 12.2 g/dL (12.5-16.3); LYMPHOCYTES # (AUTO) 0.8 K/uL (20.0-40.0); LYMPHOCYTES % (AUTO) 8.7 % (20.5-51.5); MEAN CORPUSCULAR HEMOGLOBIN 28.8 uug (23.8-33.4); MEAN CORPUSCULAR HGB CONC 34 g/dL (32.5-36.3); MEAN CORPUSCULAR VOLUME 85.8 fL (73.0-96.2); MONOCYTES # (AUTO) 0.2 K/uL (2.0-10.0); NEUTROPHILS # (AUTO) 7.8 K/uL (1.8-8.9); NEUTROPHILS % (AUTO) 88.9 % (38.5-71.5); PLATELET COUNT (AUTO) 260 K/uL (152-348); RED BLOOD CELL COUNT(AUTO) 4.23 MIL/uL (4.06-5.63); WHITE BLOOD COUNT (AUTO) 8.8 K/uL (3.6-10.2)
[2018-08-09 07:08] LABS: CARBON DIOXIDE 24 mmol/L (21-32); CHLORIDE 100 mmol/L (98-107); CHOLESTEROL 178 mg/dL (<200); CREATININE 3.3 mg/dL (0.6-1.3); GLUCOSE 260 mg/dL (74-106); HDL CHOLESTEROL 65 mg/dL (40-60); MAGNESIUM 2.5 mg/dL (1.8-2.4); PHOSPHOROUS 5.3 mg/dL (2.5-4.9); POTASSIUM 3.9 mmol/L (3.5-5.1); TRIGLYCERIDES 62 MG/DL (30-150); UREA NITROGEN, BLOOD 66 mg/dL (7-18)
[2018-08-09] MEDS: MONTELUKAST SODIUM 10 MG TABLET PO SCH (08:43)
[2018-08-09] MEDS: FUROSEMIDE 40 MG/4 ML VIAL IV SCH (08:43)
[2018-08-09] MEDS: FERROUS SULFATE 325 MG TABEC PO SCH ×2 (08:43→16:13)
[2018-08-09] MEDS: PREGABALIN 25 MG CAPSULE PO SCH ×2 (08:43→16:15)
[2018-08-09] MEDS: GLIMEPIRIDE 2 MG TABLET PO SCH ×2 (08:43→17:23)
[2018-08-09 08:59] LABS: THYROID STIMULATING HORMONE 0.497 mIU/mL (0.358-3.740)
[2018-08-09] MEDS ORDERED: APIXABAN 5 MG TABLET PO ONE ×2 (09:00→17:15)
[2018-08-09] MEDS ORDERED: HYDROCODONE/APAP 5-325MG TABLET PO PRN (10:30)
[2018-08-09] MEDS ORDERED: TRAMADOL HCL 50 MG TABLET PO PRN (10:30)
[2018-08-09] MEDS: ATENOLOL 50 MG TABLET PO SCH (16:14)
[2018-08-09] MEDS: ASPIRIN 81 MG TAB.CHEW PO SCH (16:14)
[2018-08-09] MEDS: ATORVASTATIN 40 MG TABLET PO SCH (21:12)
[2018-08-09] MEDS: TAMSULOSIN HCL 0.4 MG CAP.SR.24H PO SCH (21:13)
[2018-08-10 03:31] VITALS: BP 114/70
[2018-08-10 05:44] LABS: BASOPHILS % (AUTO) 0.1 % (0.0-2.0); HEMOGLOBIN 10.6 g/dL (12.5-16.3); LYMPHOCYTES # (AUTO) 0.6 K/uL (20.0-40.0); LYMPHOCYTES % (AUTO) 6.9 % (20.5-51.5); MEAN CORPUSCULAR HEMOGLOBIN 28.6 uug (23.8-33.4); MEAN CORPUSCULAR HGB CONC 33 g/dL (32.5-36.3); MONOCYTES # (AUTO) 0.3 K/uL (2.0-10.0); NEUTROPHILS # (AUTO) 8.1 K/uL (1.8-8.9); PLATELET COUNT (AUTO) 232 K/uL (152-348); RED BLOOD CELL COUNT(AUTO) 3.72 MIL/uL (4.06-5.63)
[2018-08-10 05:55] LABS: CARBON DIOXIDE 25 mmol/L (21-32); CHLORIDE 98 mmol/L (98-107); CREATININE 3.4 mg/dL (0.6-1.3); MAGNESIUM 2.4 mg/dL (1.8-2.4); PHOSPHOROUS 5.9 mg/dL (2.5-4.9)
[2018-08-10 06:04] LABS: GLUCOSE 400 mg/dL (74-106); UREA NITROGEN, BLOOD 83 mg/dL (7-18)
[2018-08-10] MEDS: CLONIDINE HCL 0.3 MG TABLET PO SCH ×3 (06:40→22:02)
[2018-08-10] MEDS: methylPREDNISolone SOD SUCC 40 MG/ML VIAL IV SCH ×3 (06:40→22:04)
[2018-08-10] MEDS: PANTOPRAZOLE SODIUM 40 MG TABLET.DR PO SCH (06:40)
[2018-08-10] MEDS ORDERED: DEXTROSE 50% 50 ML DISP.SYRIN IV PRN (06:45)
[2018-08-10] MEDS: BLOOD SUGAR DIAGNOSTIC 1 EACH STRIP VI SCH ×4 (08:05→20:29)
[2018-08-10] MEDS: INSULIN REGULAR, HUMAN 300 UNIT/3 ML VIAL SQ PRN ×4 (08:09→20:32)
[2018-08-10] MEDS: FERROUS SULFATE 325 MG TABEC PO SCH ×2 (08:12→16:22)
[2018-08-10] MEDS: PREGABALIN 25 MG CAPSULE PO SCH ×2 (08:12→16:22)
[2018-08-10] MEDS: GLIMEPIRIDE 2 MG TABLET PO SCH ×2 (08:12→17:10)
[2018-08-10] MEDS: MONTELUKAST SODIUM 10 MG TABLET PO SCH (08:12)
[2018-08-10] MEDS: ASPIRIN 81 MG TAB.CHEW PO SCH (08:12)
[2018-08-10] MEDS: ATENOLOL 50 MG TABLET PO SCH (08:13)
[2018-08-10] MEDS ORDERED: APIXABAN 5 MG TABLET PO ONE ×2 (10:00→17:30)
[2018-08-10 11:50] VITALS: BP 114/75
[2018-08-10 15:40] VITALS: BP 113/66
[2018-08-10 19:24] VITALS: BP 147/85
[2018-08-10] MEDS: TAMSULOSIN HCL 0.4 MG CAP.SR.24H PO SCH (20:20)
[2018-08-10] MEDS: ATORVASTATIN 40 MG TABLET PO SCH (20:20)
[2018-08-10] MEDS: IPRATROPIUM BROMIDE 0.5 MG/2.5 ML NEBU NEB PRN (20:34)
[2018-08-10] MEDS: ALBUTEROL SULFATE 2.5 MG/3 ML NEBU NEB PRN (20:34)
[2018-08-11] MEDS: BLOOD SUGAR DIAGNOSTIC 1 EACH STRIP VI SCH ×6 (00:03→20:53)
[2018-08-11] MEDS: INSULIN REGULAR, HUMAN 300 UNIT/3 ML VIAL SQ PRN ×5 (00:05→16:44)
[2018-08-11 00:33] VITALS: BP 149/83
[2018-08-11 05:24] VITALS: BP 138/95
[2018-08-11] MEDS: CLONIDINE HCL 0.3 MG TABLET PO SCH ×3 (06:06→21:23)
[2018-08-11] MEDS: PANTOPRAZOLE SODIUM 40 MG TABLET.DR PO SCH (06:06)
[2018-08-11] MEDS: methylPREDNISolone SOD SUCC 40 MG/ML VIAL IV SCH ×3 (06:07→21:23)
[2018-08-11 06:33] LABS: BASOPHILS % (AUTO) 0.1 % (0.0-2.0); HEMOGLOBIN 10.9 g/dL (12.5-16.3); LYMPHOCYTES # (AUTO) 0.7 K/uL (20.0-40.0); LYMPHOCYTES % (AUTO) 4.3 % (20.5-51.5); MEAN CORPUSCULAR HGB CONC 34 g/dL (32.5-36.3); MEAN CORPUSCULAR VOLUME 85.4 fL (73.0-96.2); MONOCYTES # (AUTO) 0.5 K/uL (2.0-10.0); MONOCYTES % (AUTO) 3.1 % (0.0-11.0); NEUTROPHILS # (AUTO) 15.2 K/uL (1.8-8.9); NEUTROPHILS % (AUTO) 92.5 % (38.5-71.5); PLATELET COUNT (AUTO) 243 K/uL (152-348); RED BLOOD CELL COUNT(AUTO) 3.75 MIL/uL (4.06-5.63); WHITE BLOOD COUNT (AUTO) 16.5 K/uL (3.6-10.2)
[2018-08-11 06:43] LABS: CARBON DIOXIDE 23 mmol/L (21-32); CHLORIDE 97 mmol/L (98-107); CREATININE 3.3 mg/dL (0.6-1.3); GLUCOSE 207 mg/dL (74-106); MAGNESIUM 2.6 mg/dL (1.8-2.4); PHOSPHOROUS 5.2 mg/dL (2.5-4.9); POTASSIUM 3.5 mmol/L (3.5-5.1)
[2018-08-11 06:50] LABS: UREA NITROGEN, BLOOD 93 mg/dL (7-18)
[2018-08-11] MEDS: GLIMEPIRIDE 2 MG TABLET PO SCH ×2 (08:00→17:10)
[2018-08-11] MEDS: [UNRECOGNIZED DRUG - OTHER] PO SCH ×2 (08:18→17:12)
[2018-08-11] MEDS: PREGABALIN 25 MG CAPSULE PO SCH ×2 (08:19→16:40)
[2018-08-11] MEDS: MONTELUKAST SODIUM 10 MG TABLET PO SCH (08:19)
[2018-08-11] MEDS: FERROUS SULFATE 325 MG TABEC PO SCH ×2 (08:19→16:40)
[2018-08-11] MEDS: ASPIRIN 81 MG TAB.CHEW PO SCH (08:19)
[2018-08-11] MEDS: ATENOLOL 50 MG TABLET PO SCH (08:20)
[2018-08-11] MEDS ORDERED: APIXABAN 5 MG TABLET PO SCH (09:00)
[2018-08-11] MEDS: ALBUTEROL SULFATE 2.5 MG/3 ML NEBU NEB PRN ×3 (09:14→19:29)
[2018-08-11] MEDS: IPRATROPIUM BROMIDE 0.5 MG/2.5 ML NEBU NEB PRN ×3 (09:14→19:29)
[2018-08-11] MEDS ORDERED: FUROSEMIDE 40 MG/4 ML VIAL IV ONE (09:30)
[2018-08-11] MEDS ORDERED: DEXTROSE 50% 50 ML DISP.SYRIN IV PRN ×2 (11:00→21:00)
[2018-08-11] MEDS ORDERED: INSULIN REGULAR, HUMAN 300 UNITS/3 ML VIAL SQ PRN ×2 (11:00→21:00)
[2018-08-11 11:09] VITALS: BP 130/80
[2018-08-11 15:04] VITALS: BP 146/91
[2018-08-11 15:33] LABS: *BILIRUBIN,URIN NEGATIVE (NEGATIVE); *BLOOD, URINE NEGATIVE (NEGATIVE); *CLARITY,URINE CLEAR (CLEAR); *COLOR,URINE YELLOW (YELLOW); *KETONES,URINE NEGATIVE (NEGATIVE); *UROBILINOGEN,URINE 0.2 E.U./dl (NORMAL); LEUKOCYTE ESTERASE ,URINE NEGATIVE (NEGATIVE); NITRITE, URINE NEGATIVE (NEGATIVE); PH,URINE 5.5 (5.0-8.0); UGLUCOSE NEGATIVE (NEGATIVE)
[2018-08-11 16:24] LABS: BACTERIA,URINE NONE SEEN /HPF (NONE SEEN); RBC,URINE 0-3 /HPF (0-3); SQUAMOUS EPITHELIAL CELL,UR FEW /HPF (NONE SEEN); WBC,URINE 0-3 /HPF (0-3)
[2018-08-11 20:31] VITALS: BP 159/81
[2018-08-11] MEDS: TAMSULOSIN HCL 0.4 MG CAP.SR.24H PO SCH (20:49)
[2018-08-11] MEDS: ATORVASTATIN 40 MG TABLET PO SCH (20:49)
[2018-08-11] MEDS ORDERED: INSULIN REGULAR, HUMAN 300 UNIT/3 ML VIAL SQ PRN (21:00)
[2018-08-11] MEDS ORDERED: BLOOD SUGAR DIAGNOSTIC 1 EACH STRIP VI SCH (21:00)
[2018-08-11] MEDS ORDERED: INSULIN GLARGINE,HUM 300 UNITS/3 ML CARTRIDGE SQ SCH (21:00)
[2018-08-11] MEDS ORDERED: INSULIN REGULAR, HUMAN 300 UNIT/3 ML VIAL SQ ONE (22:30)
[2018-08-12] MEDS ORDERED: INSULIN REGULAR, HUMAN 300 UNIT/3 ML VIAL SQ ONE (00:15)
[2018-08-12 00:29] VITALS: BP 143/98
[2018-08-12] MEDS ORDERED: DEXTROSE 50% 50 ML DISP.SYRIN IV PRN (01:15)
[2018-08-12] MEDS: BLOOD SUGAR DIAGNOSTIC 1 EACH STRIP VI SCH ×5 (03:54→21:14)
[2018-08-12] MEDS: INSULIN REGULAR, HUMAN 300 UNIT/3 ML VIAL SQ PRN ×5 (03:57→21:12)
[2018-08-12] MEDS: ALBUTEROL SULFATE 2.5 MG/3 ML NEBU NEB PRN ×2 (04:08→17:26)
[2018-08-12] MEDS: IPRATROPIUM BROMIDE 0.5 MG/2.5 ML NEBU NEB PRN ×2 (04:09→17:26)
[2018-08-12 05:05] VITALS: BP 157/89
[2018-08-12] MEDS: PANTOPRAZOLE SODIUM 40 MG TABLET.DR PO SCH (06:05)
[2018-08-12] MEDS: methylPREDNISolone SOD SUCC 40 MG/ML VIAL IV SCH ×3 (06:05→21:03)
[2018-08-12] MEDS: CLONIDINE HCL 0.3 MG TABLET PO SCH ×3 (06:05→21:03)
[2018-08-12 06:29] LABS: HEMATOCRIT 33.9 % (36.7-47.1); HEMOGLOBIN 11.2 g/dL (12.5-16.3); LYMPHOCYTES # (AUTO) 0.5 K/uL (20.0-40.0); LYMPHOCYTES % (AUTO) 3.6 % (20.5-51.5); MEAN CORPUSCULAR HEMOGLOBIN 28.5 uug (23.8-33.4); MEAN CORPUSCULAR HGB CONC 33 g/dL (32.5-36.3); MEAN CORPUSCULAR VOLUME 86.4 fL (73.0-96.2); NEUTROPHILS # (AUTO) 12.8 K/uL (1.8-8.9); NEUTROPHILS % (AUTO) 89.4 % (38.5-71.5); PLATELET COUNT (AUTO) 249 K/uL (152-348); RED BLOOD CELL COUNT(AUTO) 3.93 MIL/uL (4.06-5.63); WHITE BLOOD COUNT (AUTO) 14.4 K/uL (3.6-10.2)
[2018-08-12 06:45] LABS: CARBON DIOXIDE 22 mmol/L (21-32); CHLORIDE 99 mmol/L (98-107); CREATININE 3.7 mg/dL (0.6-1.3); GLUCOSE 197 mg/dL (74-106); MAGNESIUM 2.4 mg/dL (1.8-2.4); PHOSPHOROUS 4.6 mg/dL (2.5-4.9)
[2018-08-12 06:50] LABS: UREA NITROGEN, BLOOD 90 mg/dL (7-18)
[2018-08-12] MEDS ORDERED: FUROSEMIDE 40 MG TABLET PO SCH (09:00)
[2018-08-12] MEDS: MONTELUKAST SODIUM 10 MG TABLET PO SCH (09:28)
[2018-08-12] MEDS: ASPIRIN 81 MG TAB.CHEW PO SCH (09:29)
[2018-08-12] MEDS: FERROUS SULFATE 325 MG TABEC PO SCH ×2 (09:30→17:11)
[2018-08-12] MEDS ORDERED: POTASSIUM CHLORIDE 20 MEQ TAB.PRT.SR PO ONE (09:30)
[2018-08-12] MEDS: PREGABALIN 25 MG CAPSULE PO SCH ×2 (09:30→17:11)
[2018-08-12] MEDS: GLIMEPIRIDE 2 MG TABLET PO SCH ×2 (09:31→17:11)
[2018-08-12] MEDS: [UNRECOGNIZED DRUG - OTHER] PO SCH ×2 (09:34→17:14)
[2018-08-12] MEDS: ATENOLOL 50 MG TABLET PO SCH (09:50)
[2018-08-12 11:24] VITALS: BP 155/87
[2018-08-12 15:16] VITALS: BP 149/93
[2018-08-12 20:06] VITALS: BP 144/91
[2018-08-12] MEDS: TAMSULOSIN HCL 0.4 MG CAP.SR.24H PO SCH (20:53)
[2018-08-12] MEDS: ATORVASTATIN 40 MG TABLET PO SCH (20:53)
[2018-08-12] MEDS: INSULIN GLARGINE,HUM 300 UNITS/3 ML CARTRIDGE SQ SCH (21:11)
[2018-08-13] VITALS: BP 132/84
[2018-08-13] MEDS: ALBUTEROL SULFATE 2.5 MG/3 ML NEBU NEB SCH ×4 (00:42→19:15)
[2018-08-13] MEDS: IPRATROPIUM BROMIDE 0.5 MG/2.5 ML NEBU NEB SCH ×4 (00:42→19:15)
[2018-08-13] MEDS: BLOOD SUGAR DIAGNOSTIC 1 EACH STRIP VI SCH ×7 (01:17→23:59)
[2018-08-13] MEDS: INSULIN REGULAR, HUMAN 300 UNIT/3 ML VIAL SQ PRN ×5 (01:19→20:24)
[2018-08-13 04:43] VITALS: BP 130/62
[2018-08-13] MEDS: methylPREDNISolone SOD SUCC 40 MG/ML VIAL IV SCH ×3 (06:01→21:43)
[2018-08-13] MEDS: CLONIDINE HCL 0.3 MG TABLET PO SCH ×3 (06:03→21:43)
[2018-08-13] MEDS: PANTOPRAZOLE SODIUM 40 MG TABLET.DR PO SCH (06:04)
[2018-08-13 06:34] LABS: BASOPHILS % (AUTO) 0.1 % (0.0-2.0); HEMATOCRIT 34.9 % (36.7-47.1); HEMOGLOBIN 11.7 g/dL (12.5-16.3); LYMPHOCYTES # (AUTO) 0.5 K/uL (20.0-40.0); LYMPHOCYTES % (AUTO) 3.5 % (20.5-51.5); MEAN CORPUSCULAR HEMOGLOBIN 28.9 uug (23.8-33.4); MEAN CORPUSCULAR HGB CONC 33 g/dL (32.5-36.3); MEAN CORPUSCULAR VOLUME 86.7 fL (73.0-96.2); MONOCYTES # (AUTO) 0.7 K/uL (2.0-10.0); MONOCYTES % (AUTO) 4.9 % (0.0-11.0); NEUTROPHILS % (AUTO) 91.5 % (38.5-71.5); PLATELET COUNT (AUTO) 244 K/uL (152-348); RED BLOOD CELL COUNT(AUTO) 4.03 MIL/uL (4.06-5.63); WHITE BLOOD COUNT (AUTO) 14.2 K/uL (3.6-10.2)
[2018-08-13 06:55] LABS: CARBON DIOXIDE 24 mmol/L (21-32); CHLORIDE 107 mmol/L (98-107); CREATININE 3.1 mg/dL (0.6-1.3); GLUCOSE 187 mg/dL (74-106); MAGNESIUM 2.5 mg/dL (1.8-2.4); PHOSPHOROUS 4.7 mg/dL (2.5-4.9); POTASSIUM 3.7 mmol/L (3.5-5.1)
[2018-08-13 07:02] LABS: UREA NITROGEN, BLOOD 99 mg/dL (7-18)
[2018-08-13] MEDS: MONTELUKAST SODIUM 10 MG TABLET PO SCH (08:09)
[2018-08-13] MEDS: GLIMEPIRIDE 2 MG TABLET PO SCH ×2 (08:09→17:46)
[2018-08-13] MEDS: ASPIRIN 81 MG TAB.CHEW PO SCH (08:10)
[2018-08-13] MEDS: PREGABALIN 25 MG CAPSULE PO SCH ×2 (08:10→17:46)
[2018-08-13] MEDS: DILTIAZEM HCL CD 120 MG CAP.SR.24H PO SCH (08:11)
[2018-08-13] MEDS: FUROSEMIDE 40 MG TABLET PO SCH (08:11)
[2018-08-13] MEDS: FERROUS SULFATE 325 MG TABEC PO SCH ×2 (08:12→17:45)
[2018-08-13] MEDS: [UNRECOGNIZED DRUG - OTHER] PO SCH ×2 (08:13→17:48)
[2018-08-13] MEDS ORDERED: FUROSEMIDE 40 MG TABLET PO SCH (09:00)
[2018-08-13] MEDS ORDERED: ATENOLOL 25 MG TABLET PO SCH (09:00)
[2018-08-13 12:00] VITALS: BP 145/84
[2018-08-13 15:48] VITALS: BP 137/77
[2018-08-13 19:31] VITALS: BP 146/87
[2018-08-13] MEDS: ATORVASTATIN 40 MG TABLET PO SCH (20:22)
[2018-08-13] MEDS: TAMSULOSIN HCL 0.4 MG CAP.SR.24H PO SCH (20:22)
[2018-08-13] MEDS: INSULIN GLARGINE,HUM 300 UNITS/3 ML CARTRIDGE SQ SCH (20:24)
[2018-08-13 23:26] VITALS: BP 177/99
[2018-08-14] MEDS: INSULIN REGULAR, HUMAN 300 UNIT/3 ML VIAL SQ PRN ×5 (00:01→20:26)
[2018-08-14] MEDS: ALBUTEROL SULFATE 2.5 MG/3 ML NEBU NEB SCH ×4 (01:12→19:25)
[2018-08-14] MEDS: IPRATROPIUM BROMIDE 0.5 MG/2.5 ML NEBU NEB SCH ×4 (01:12→19:25)
[2018-08-14 03:34] VITALS: BP 151/90
[2018-08-14] MEDS: BLOOD SUGAR DIAGNOSTIC 1 EACH STRIP VI SCH ×5 (04:25→20:23)
[2018-08-14] MEDS: PANTOPRAZOLE SODIUM 40 MG TABLET.DR PO SCH (06:14)
[2018-08-14] MEDS: methylPREDNISolone SOD SUCC 40 MG/ML VIAL IV SCH ×3 (06:14→21:04)
[2018-08-14] MEDS: CLONIDINE HCL 0.3 MG TABLET PO SCH ×3 (06:15→21:04)
[2018-08-14 06:38] LABS: BASOPHILS % (AUTO) 0.1 % (0.0-2.0); HEMATOCRIT 37.1 % (36.7-47.1); HEMOGLOBIN 12.2 g/dL (12.5-16.3); LYMPHOCYTES # (AUTO) 0.6 K/uL (20.0-40.0); MEAN CORPUSCULAR HEMOGLOBIN 28.6 uug (23.8-33.4); MEAN CORPUSCULAR HGB CONC 33 g/dL (32.5-36.3); MONOCYTES # (AUTO) 0.7 K/uL (2.0-10.0); MONOCYTES % (AUTO) 4.5 % (0.0-11.0); NEUTROPHILS # (AUTO) 13.5 K/uL (1.8-8.9); NEUTROPHILS % (AUTO) 91.4 % (38.5-71.5); PLATELET COUNT (AUTO) 291 K/uL (152-348); RED BLOOD CELL COUNT(AUTO) 4.27 MIL/uL (4.06-5.63); WHITE BLOOD COUNT (AUTO) 14.7 K/uL (3.6-10.2)
[2018-08-14 07:04] LABS: ALANINE AMINOTRANSFERASE 34 U/L (16-63); ALKALINE PHOSPHATASE 49 U/L (50-136); ASPARTATE AMINOTRANSFERASE 7 U/L (15-37); BILIRUBIN,TOTAL 0.3 mg/dL (0.2-1.0); CARBON DIOXIDE 24 mmol/L (21-32); CHLORIDE 104 mmol/L (98-107); CREATININE 3.2 mg/dL (0.6-1.3); GLUCOSE 64 mg/dL (74-106); MAGNESIUM 2.5 mg/dL (1.8-2.4); PHOSPHOROUS 4.9 mg/dL (2.5-4.9); POTASSIUM 3.6 mmol/L (3.5-5.1); TOTAL PROTEIN, SERUM 7.3 g/dL (6.4-8.2)
[2018-08-14 07:10] LABS: UREA NITROGEN, BLOOD 103 mg/dL (7-18)
[2018-08-14] MEDS: MONTELUKAST SODIUM 10 MG TABLET PO SCH (08:11)
[2018-08-14] MEDS: PREGABALIN 25 MG CAPSULE PO SCH ×2 (08:11→16:33)
[2018-08-14] MEDS: ASPIRIN 81 MG TAB.CHEW PO SCH (08:12)
[2018-08-14] MEDS: FERROUS SULFATE 325 MG TABEC PO SCH ×2 (08:12→16:33)
[2018-08-14] MEDS: GLIMEPIRIDE 2 MG TABLET PO SCH ×2 (08:12→17:49)
[2018-08-14] MEDS: DILTIAZEM HCL CD 120 MG CAP.SR.24H PO SCH (08:12)
[2018-08-14] MEDS: [UNRECOGNIZED DRUG - OTHER] PO SCH ×2 (08:16→17:50)
[2018-08-14] MEDS: FUROSEMIDE 40 MG TABLET PO SCH (08:17)
[2018-08-14 12:00] VITALS: BP 140/91
[2018-08-14 16:00] VITALS: BP 147/87
[2018-08-14 20:00] VITALS: BP 158/81
[2018-08-14] MEDS: INSULIN GLARGINE,HUM 300 UNITS/3 ML CARTRIDGE SQ SCH (21:03)
[2018-08-14] MEDS: ATORVASTATIN 40 MG TABLET PO SCH (21:04)
[2018-08-14] MEDS: TAMSULOSIN HCL 0.4 MG CAP.SR.24H PO SCH (21:04)
[2018-08-15] MEDS: BLOOD SUGAR DIAGNOSTIC 1 EACH STRIP VI SCH ×6 (00:21→20:22)
[2018-08-15] MEDS: INSULIN REGULAR, HUMAN 300 UNIT/3 ML VIAL SQ PRN ×6 (00:23→20:23)
[2018-08-15] MEDS: ALBUTEROL SULFATE 2.5 MG/3 ML NEBU NEB SCH ×5 (00:43→19:32)
[2018-08-15] MEDS: IPRATROPIUM BROMIDE 0.5 MG/2.5 ML NEBU NEB SCH ×5 (00:44→19:32)
[2018-08-15 04:00] VITALS: BP 140/74
[2018-08-15] MEDS: methylPREDNISolone SOD SUCC 40 MG/ML VIAL IV SCH (05:58)
[2018-08-15] MEDS: CLONIDINE HCL 0.3 MG TABLET PO SCH ×3 (05:59→21:21)
[2018-08-15] MEDS: PANTOPRAZOLE SODIUM 40 MG TABLET.DR PO SCH (06:03)
[2018-08-15 06:33] LABS: BASOPHILS % (AUTO) 0.1 % (0.0-2.0); HEMATOCRIT 32.5 % (36.7-47.1); LYMPHOCYTES # (AUTO) 0.3 K/uL (20.0-40.0); LYMPHOCYTES % (AUTO) 2.7 % (20.5-51.5); MEAN CORPUSCULAR HEMOGLOBIN 29.2 uug (23.8-33.4); MEAN CORPUSCULAR HGB CONC 34 g/dL (32.5-36.3); MONOCYTES # (AUTO) 0.5 K/uL (2.0-10.0); NEUTROPHILS % (AUTO) 93.2 % (38.5-71.5); PLATELET COUNT (AUTO) 237 K/uL (152-348); RED BLOOD CELL COUNT(AUTO) 3.78 MIL/uL (4.06-5.63); WHITE BLOOD COUNT (AUTO) 12.8 K/uL (3.6-10.2)
[2018-08-15 06:45] LABS: CARBON DIOXIDE 22 mmol/L (21-32); CHLORIDE 104 mmol/L (98-107); GLUCOSE 201 mg/dL (74-106); MAGNESIUM 2.7 mg/dL (1.8-2.4); PHOSPHOROUS 5.2 mg/dL (2.5-4.9); POTASSIUM 3.7 mmol/L (3.5-5.1)
[2018-08-15 06:50] LABS: UREA NITROGEN, BLOOD 110 mg/dL (7-18)
[2018-08-15] MEDS: [UNRECOGNIZED DRUG - OTHER] PO SCH ×2 (08:26→17:33)
[2018-08-15] MEDS: FUROSEMIDE 40 MG TABLET PO SCH (08:27)
[2018-08-15] MEDS: MONTELUKAST SODIUM 10 MG TABLET PO SCH (08:28)
[2018-08-15] MEDS: DILTIAZEM HCL CD 120 MG CAP.SR.24H PO SCH (08:28)
[2018-08-15] MEDS: ASPIRIN 81 MG TAB.CHEW PO SCH (08:28)
[2018-08-15] MEDS: FERROUS SULFATE 325 MG TABEC PO SCH ×2 (08:28→17:34)
[2018-08-15] MEDS: GLIMEPIRIDE 2 MG TABLET PO SCH ×2 (08:28→17:34)
[2018-08-15] MEDS: PREGABALIN 25 MG CAPSULE PO SCH ×2 (08:29→17:34)
[2018-08-15 11:40] VITALS: BP 134/82
[2018-08-15] MEDS ORDERED: methylPREDNISolone SOD SUCC 40 MG/ML VIAL IV SCH (14:00)
[2018-08-15 16:00] VITALS: BP 145/82
[2018-08-15 20:06] VITALS: BP 150/90
[2018-08-15] MEDS: INSULIN GLARGINE,HUM 300 UNITS/3 ML CARTRIDGE SQ SCH (20:24)
[2018-08-15] MEDS: ATORVASTATIN 40 MG TABLET PO SCH (20:24)
[2018-08-15] MEDS: TAMSULOSIN HCL 0.4 MG CAP.SR.24H PO SCH (20:24)
[2018-08-16] MEDS: BLOOD SUGAR DIAGNOSTIC 1 EACH STRIP VI SCH ×6 (00:03→20:18)
[2018-08-16] MEDS: INSULIN REGULAR, HUMAN 300 UNIT/3 ML VIAL SQ PRN ×4 (00:04→20:37)
[2018-08-16] MEDS: ALBUTEROL SULFATE 2.5 MG/3 ML NEBU NEB SCH ×4 (01:32→19:15)
[2018-08-16] MEDS: IPRATROPIUM BROMIDE 0.5 MG/2.5 ML NEBU NEB SCH ×4 (01:32→19:15)
[2018-08-16 06:11] VITALS: BP 151/73
[2018-08-16] MEDS: PANTOPRAZOLE SODIUM 40 MG TABLET.DR PO SCH (06:19)
[2018-08-16] MEDS: CLONIDINE HCL 0.3 MG TABLET PO SCH ×3 (06:19→21:38)
[2018-08-16 06:40] LABS: BASOPHILS % (AUTO) 0.1 % (0.0-2.0); HEMATOCRIT 32.9 % (36.7-47.1); HEMOGLOBIN 10.9 g/dL (12.5-16.3); LYMPHOCYTES # (AUTO) 0.5 K/uL (20.0-40.0); LYMPHOCYTES % (AUTO) 3.6 % (20.5-51.5); MEAN CORPUSCULAR HEMOGLOBIN 28.7 uug (23.8-33.4); MEAN CORPUSCULAR HGB CONC 33 g/dL (32.5-36.3); MEAN CORPUSCULAR VOLUME 86.7 fL (73.0-96.2); MONOCYTES # (AUTO) 0.8 K/uL (2.0-10.0); MONOCYTES % (AUTO) 6.3 % (0.0-11.0); NEUTROPHILS # (AUTO) 12.1 K/uL (1.8-8.9); PLATELET COUNT (AUTO) 229 K/uL (152-348); WHITE BLOOD COUNT (AUTO) 13.5 K/uL (3.6-10.2)
[2018-08-16 06:57] LABS: CARBON DIOXIDE 22 mmol/L (21-32); CHLORIDE 104 mmol/L (98-107); CREATININE 3.2 mg/dL (0.6-1.3); GLUCOSE 181 mg/dL (74-106); MAGNESIUM 2.5 mg/dL (1.8-2.4); PHOSPHOROUS 6.1 mg/dL (2.5-4.9); POTASSIUM 3.4 mmol/L (3.5-5.1)
[2018-08-16 06:58] LABS: UREA NITROGEN, BLOOD 112 mg/dL (7-18)
[2018-08-16] MEDS: FUROSEMIDE 40 MG TABLET PO SCH (08:01)
[2018-08-16] MEDS: MONTELUKAST SODIUM 10 MG TABLET PO SCH (08:01)
[2018-08-16] MEDS: GLIMEPIRIDE 2 MG TABLET PO SCH ×2 (08:01→17:30)
[2018-08-16] MEDS: FERROUS SULFATE 325 MG TABEC PO SCH ×2 (08:01→17:18)
[2018-08-16] MEDS: ASPIRIN 81 MG TAB.CHEW PO SCH (08:01)
[2018-08-16] MEDS: PREGABALIN 25 MG CAPSULE PO SCH ×2 (08:01→17:18)
[2018-08-16] MEDS: DILTIAZEM HCL CD 120 MG CAP.SR.24H PO SCH (08:02)
[2018-08-16] MEDS: [UNRECOGNIZED DRUG - OTHER] PO SCH ×2 (08:03→17:20)
[2018-08-16] MEDS ORDERED: POTASSIUM CHLORIDE 20 MEQ POWDER PACKET PO ONE (09:15)
[2018-08-16 11:40] VITALS: BP 130/78
[2018-08-16 15:52] VITALS: BP 134/75
[2018-08-16] MEDS: ATORVASTATIN 40 MG TABLET PO SCH (20:33)
[2018-08-16] MEDS: TAMSULOSIN HCL 0.4 MG CAP.SR.24H PO SCH (20:33)
[2018-08-16] MEDS: INSULIN GLARGINE,HUM 300 UNITS/3 ML CARTRIDGE SQ SCH (20:36)
[2018-08-16 21:00] VITALS: BP 135/74
[2018-08-17] MEDS: BLOOD SUGAR DIAGNOSTIC 1 EACH STRIP VI SCH ×9 (00:12→21:05)
[2018-08-17] MEDS: IPRATROPIUM BROMIDE 0.5 MG/2.5 ML NEBU NEB SCH ×4 (00:40→19:31)
[2018-08-17] MEDS: ALBUTEROL SULFATE 2.5 MG/3 ML NEBU NEB SCH ×4 (00:40→19:31)
[2018-08-17 04:42] VITALS: BP 131/90
[2018-08-17] MEDS: CLONIDINE HCL 0.3 MG TABLET PO SCH ×3 (05:40→22:17)
[2018-08-17] MEDS: PANTOPRAZOLE SODIUM 40 MG TABLET.DR PO SCH (06:03)
[2018-08-17] MEDS: FUROSEMIDE 40 MG TABLET PO SCH (08:22)
[2018-08-17] MEDS: FERROUS SULFATE 325 MG TABEC PO SCH ×2 (08:22→16:46)
[2018-08-17] MEDS: DILTIAZEM HCL CD 120 MG CAP.SR.24H PO SCH (08:23)
[2018-08-17] MEDS: ASPIRIN 81 MG TAB.CHEW PO SCH (08:24)
[2018-08-17] MEDS: PREGABALIN 25 MG CAPSULE PO SCH ×2 (08:24→16:36)
[2018-08-17] MEDS: GLIMEPIRIDE 2 MG TABLET PO SCH ×2 (08:24→18:00)
[2018-08-17] MEDS: MONTELUKAST SODIUM 10 MG TABLET PO SCH (08:24)
[2018-08-17] MEDS: [UNRECOGNIZED DRUG - OTHER] PO SCH ×2 (08:27→16:38)
[2018-08-17] MEDS ORDERED: FUROSEMIDE 40 MG/4 ML VIAL IV ONE (09:45)
[2018-08-17 10:56] LABS: BASOPHILS % (AUTO) 0.1 % (0.0-2.0); EOSINOPHILS # (AUTO) 0.3 K/uL (0.0-0.7); EOSINOPHILS % (AUTO) 2.2 % (0.0-7.0); HEMATOCRIT 34.8 % (36.7-47.1); HEMOGLOBIN 11.6 g/dL (12.5-16.3); LYMPHOCYTES # (AUTO) 1.2 K/uL (20.0-40.0); LYMPHOCYTES % (AUTO) 9.1 % (20.5-51.5); MEAN CORPUSCULAR HGB CONC 33 g/dL (32.5-36.3); MEAN CORPUSCULAR VOLUME 87.3 fL (73.0-96.2); MONOCYTES # (AUTO) 1.5 K/uL (2.0-10.0); MONOCYTES % (AUTO) 11.2 % (0.0-11.0); NEUTROPHILS # (AUTO) 10.5 K/uL (1.8-8.9); NEUTROPHILS % (AUTO) 77.4 % (38.5-71.5); PLATELET COUNT (AUTO) 244 K/uL (152-348); RED BLOOD CELL COUNT(AUTO) 3.99 MIL/uL (4.06-5.63); WHITE BLOOD COUNT (AUTO) 13.6 K/uL (3.6-10.2)
[2018-08-17 11:02] LABS: CARBON DIOXIDE 24 mmol/L (21-32); CHLORIDE 107 mmol/L (98-107); CREATININE 2.9 mg/dL (0.6-1.3); GLUCOSE 94 mg/dL (74-106); MAGNESIUM 2.5 mg/dL (1.8-2.4); PHOSPHOROUS 5.4 mg/dL (2.5-4.9); POTASSIUM 3.2 mmol/L (3.5-5.1)
[2018-08-17 11:03] LABS: UREA NITROGEN, BLOOD 102 mg/dL (7-18)
[2018-08-17 11:19] VITALS: BP 122/67
[2018-08-17 13:31] LABS: IRON, SERUM 48 ug/dL (50-175)
[2018-08-17 13:48] LABS: AMYLASE 331 U/L (25-115); FERRITIN 222 ng/mL (26-388)
[2018-08-17 13:56] LABS: LIPASE 1122 U/L (73-393)
[2018-08-17 15:33] VITALS: BP 147/74
[2018-08-17 20:00] VITALS: BP 139/72
[2018-08-17] MEDS: ATORVASTATIN 40 MG TABLET PO SCH (20:09)
[2018-08-17] MEDS: TAMSULOSIN HCL 0.4 MG CAP.SR.24H PO SCH (20:09)
[2018-08-17] MEDS ORDERED: BLOOD SUGAR DIAGNOSTIC 1 EACH STRIP VI SCH (21:00)
[2018-08-17] MEDS ORDERED: DEXTROSE 50% 50 ML DISP.SYRIN IV PRN ×2 (21:00)
[2018-08-17] MEDS: INSULIN GLARGINE,HUM 300 UNITS/3 ML CARTRIDGE SQ SCH (22:17)
[2018-08-18] MEDS: BLOOD SUGAR DIAGNOSTIC 1 EACH STRIP VI SCH ×6 (00:25→20:28)
[2018-08-18] MEDS: INSULIN REGULAR, HUMAN 300 UNIT/3 ML VIAL SQ PRN ×3 (00:47→20:33)
[2018-08-18] MEDS: IPRATROPIUM BROMIDE 0.5 MG/2.5 ML NEBU NEB SCH ×4 (01:22→19:33)
[2018-08-18] MEDS: ALBUTEROL SULFATE 2.5 MG/3 ML NEBU NEB SCH ×4 (01:22→19:33)
[2018-08-18 04:49] VITALS: BP 118/64
[2018-08-18] MEDS: CLONIDINE HCL 0.3 MG TABLET PO SCH ×4 (06:04→22:21)
[2018-08-18] MEDS: PANTOPRAZOLE SODIUM 40 MG TABLET.DR PO SCH (06:04)
[2018-08-18 06:42] LABS: BASOPHILS % (AUTO) 0.1 % (0.0-2.0); EOSINOPHILS # (AUTO) 0.1 K/uL (0.0-0.7); EOSINOPHILS % (AUTO) 0.8 % (0.0-7.0); HEMATOCRIT 36.9 % (36.7-47.1); HEMOGLOBIN 12.3 g/dL (12.5-16.3); LYMPHOCYTES # (AUTO) 0.6 K/uL (20.0-40.0); LYMPHOCYTES % (AUTO) 3.4 % (20.5-51.5); MEAN CORPUSCULAR HEMOGLOBIN 28.8 uug (23.8-33.4); MEAN CORPUSCULAR HGB CONC 33 g/dL (32.5-36.3); MEAN CORPUSCULAR VOLUME 86.6 fL (73.0-96.2); MONOCYTES # (AUTO) 2.1 K/uL (2.0-10.0); MONOCYTES % (AUTO) 12.3 % (0.0-11.0); NEUTROPHILS % (AUTO) 83.4 % (38.5-71.5); PLATELET COUNT (AUTO) 247 K/uL (152-348); RED BLOOD CELL COUNT(AUTO) 4.27 MIL/uL (4.06-5.63); WHITE BLOOD COUNT (AUTO) 16.8 K/uL (3.6-10.2)
[2018-08-18 07:11] LABS: CARBON DIOXIDE 25 mmol/L (21-32); CHLORIDE 107 mmol/L (98-107); CREATININE 2.7 mg/dL (0.6-1.3); GLUCOSE 80 mg/dL (74-106); MAGNESIUM 2.5 mg/dL (1.8-2.4); PHOSPHOROUS 5.7 mg/dL (2.5-4.9)
[2018-08-18 07:36] LABS: UREA NITROGEN, BLOOD 98 mg/dL (7-18)
[2018-08-18 07:37] LABS: POTASSIUM 2.8 mmol/L (3.5-5.1)
[2018-08-18] MEDS: GLIMEPIRIDE 2 MG TABLET PO SCH ×3 (08:00→17:17)
[2018-08-18] MEDS ORDERED: POTASSIUM CHLORIDE 20 MEQ TAB.PRT.SR PO ONE (08:30)
[2018-08-18] MEDS: [UNRECOGNIZED DRUG - OTHER] PO SCH ×3 (09:00→17:28)
[2018-08-18] MEDS: PREGABALIN 25 MG CAPSULE PO SCH ×2 (09:00→17:17)
[2018-08-18] MEDS: DILTIAZEM HCL CD 120 MG CAP.SR.24H PO SCH ×2 (09:00→11:07)
[2018-08-18] MEDS: MONTELUKAST SODIUM 10 MG TABLET PO SCH (09:00)
[2018-08-18] MEDS: FUROSEMIDE 40 MG TABLET PO SCH (09:00)
[2018-08-18] MEDS: FERROUS SULFATE 325 MG TABEC PO SCH ×2 (09:00→17:17)
[2018-08-18] MEDS: ASPIRIN 81 MG TAB.CHEW PO SCH (09:55)
[2018-08-18] MEDS ORDERED: FUROSEMIDE 40 MG/4 ML VIAL IV ONE (10:45)
[2018-08-18 11:38] VITALS: BP 98/71
[2018-08-18] MEDS ORDERED: LEVOFLOXACIN 750MG/D5W 750 MG in PREMIXED 1 EACH IV SCH (12:15)
[2018-08-18] MEDS: POTASSIUM CHLORIDE 10 MEQ, LIDOCAINE-MPF 1% 1 ML in IV DEXTROSE 5% 100 ML IV SCH ×4 (12:34→20:16)
[2018-08-18] MEDS: MIRALAX 17 GM POWD.PACK PO SCH (12:45)
[2018-08-18] MEDS ORDERED: BISACODYL 10 MG SUPP.RECT RC ONE (12:45)
[2018-08-18] MEDS ORDERED: LEVOFLOXACIN 750MG/D5W 750 MG in PREMIXED 1 EACH IV ONE (14:00)
[2018-08-18] MEDS ORDERED: CEFEPIME HCL 2 G in IV DEXTROSE 5% 100 ML IV SCH (14:00)
[2018-08-18] MEDS: CEFEPIME HCL 2 G in IV DEXTROSE 5% 100 ML IV SCH (14:16)
[2018-08-18 16:00] VITALS: BP 143/68
[2018-08-18 20:42] VITALS: BP 143/79
[2018-08-18] MEDS: TAMSULOSIN HCL 0.4 MG CAP.SR.24H PO SCH (21:13)
[2018-08-18] MEDS: ATORVASTATIN 40 MG TABLET PO SCH (21:13)
[2018-08-18] MEDS: INSULIN GLARGINE,HUM 300 UNITS/3 ML CARTRIDGE SQ SCH (21:24)
[2018-08-19] MEDS: BLOOD SUGAR DIAGNOSTIC 1 EACH STRIP VI SCH ×7 (00:07→23:35)
[2018-08-19 00:42] VITALS: BP 153/82
[2018-08-19] MEDS: ALBUTEROL SULFATE 2.5 MG/3 ML NEBU NEB SCH ×4 (01:53→19:02)
[2018-08-19] MEDS: IPRATROPIUM BROMIDE 0.5 MG/2.5 ML NEBU NEB SCH ×4 (01:53→19:02)
[2018-08-19 04:00] VITALS: BP 140/69
[2018-08-19] MEDS: INSULIN REGULAR, HUMAN 300 UNIT/3 ML VIAL SQ PRN ×6 (04:05→23:34)
[2018-08-19] MEDS: CLONIDINE HCL 0.3 MG TABLET PO SCH ×3 (05:56→21:34)
[2018-08-19] MEDS: PANTOPRAZOLE SODIUM 40 MG TABLET.DR PO SCH (06:06)
[2018-08-19 06:25] LABS: BASOPHILS % (AUTO) 0.2 % (0.0-2.0); EOSINOPHILS # (AUTO) 0.2 K/uL (0.0-0.7); EOSINOPHILS % (AUTO) 1.4 % (0.0-7.0); HEMATOCRIT 32.2 % (36.7-47.1); HEMOGLOBIN 10.8 g/dL (12.5-16.3); LYMPHOCYTES # (AUTO) 0.8 K/uL (20.0-40.0); LYMPHOCYTES % (AUTO) 6.1 % (20.5-51.5); MEAN CORPUSCULAR HEMOGLOBIN 28.9 uug (23.8-33.4); MEAN CORPUSCULAR HGB CONC 34 g/dL (32.5-36.3); MEAN CORPUSCULAR VOLUME 86.3 fL (73.0-96.2); MONOCYTES # (AUTO) 1.2 K/uL (2.0-10.0); MONOCYTES % (AUTO) 9.7 % (0.0-11.0); NEUTROPHILS # (AUTO) 10.2 K/uL (1.8-8.9); NEUTROPHILS % (AUTO) 82.6 % (38.5-71.5); PLATELET COUNT (AUTO) 221 K/uL (152-348); RED BLOOD CELL COUNT(AUTO) 3.74 MIL/uL (4.06-5.63); WHITE BLOOD COUNT (AUTO) 12.4 K/uL (3.6-10.2)
[2018-08-19 06:48] LABS: CARBON DIOXIDE 23 mmol/L (21-32); CHLORIDE 108 mmol/L (98-107); CREATININE 2.6 mg/dL (0.6-1.3); GLUCOSE 98 mg/dL (74-106); MAGNESIUM 2.2 mg/dL (1.8-2.4); PHOSPHOROUS 4.4 mg/dL (2.5-4.9)
[2018-08-19 06:58] LABS: UREA NITROGEN, BLOOD 91 mg/dL (7-18)
[2018-08-19] MEDS: MONTELUKAST SODIUM 10 MG TABLET PO SCH (08:27)
[2018-08-19] MEDS: FUROSEMIDE 40 MG TABLET PO SCH (08:27)
[2018-08-19] MEDS: ASPIRIN 81 MG TAB.CHEW PO SCH (08:28)
[2018-08-19] MEDS: GLIMEPIRIDE 2 MG TABLET PO SCH ×2 (08:28→18:00)
[2018-08-19] MEDS: FERROUS SULFATE 325 MG TABEC PO SCH ×2 (08:28→16:53)
[2018-08-19] MEDS: DILTIAZEM HCL CD 120 MG CAP.SR.24H PO SCH (08:28)
[2018-08-19] MEDS: [UNRECOGNIZED DRUG - OTHER] PO SCH ×2 (08:29→16:56)
[2018-08-19] MEDS: MIRALAX 17 GM POWD.PACK PO SCH (08:31)
[2018-08-19] MEDS: PREGABALIN 25 MG CAPSULE PO SCH ×2 (08:59→16:54)
[2018-08-19] MEDS ORDERED: FUROSEMIDE 40 MG/4 ML VIAL IV ONE (10:21)
[2018-08-19] MEDS: POTASSIUM CHLORIDE 20 MEQ TAB.PRT.SR PO SCH ×3 (11:20→16:54)
[2018-08-19 11:49] VITALS: BP 129/74
[2018-08-19] MEDS: CEFEPIME HCL 2 G in IV DEXTROSE 5% 100 ML IV SCH (12:43)
[2018-08-19 15:23] VITALS: BP 143/65
[2018-08-19] MEDS: BUMETANIDE 1 MG TABLET PO SCH (16:53)
[2018-08-19 20:08] VITALS: BP 124/62
[2018-08-19] MEDS: ATORVASTATIN 40 MG TABLET PO SCH (20:18)
[2018-08-19] MEDS: TAMSULOSIN HCL 0.4 MG CAP.SR.24H PO SCH (20:18)
[2018-08-19] MEDS: INSULIN GLARGINE,HUM 300 UNITS/3 ML CARTRIDGE SQ SCH (20:23)
[2018-08-20] MEDS: IPRATROPIUM BROMIDE 0.5 MG/2.5 ML NEBU NEB SCH ×4 (00:45→18:57)
[2018-08-20] MEDS: ALBUTEROL SULFATE 2.5 MG/3 ML NEBU NEB SCH ×4 (00:45→18:57)
[2018-08-20 00:55] VITALS: BP 149/83
[2018-08-20] MEDS: BLOOD SUGAR DIAGNOSTIC 1 EACH STRIP VI SCH ×5 (03:44→20:47)
[2018-08-20] MEDS: INSULIN REGULAR, HUMAN 300 UNIT/3 ML VIAL SQ PRN ×4 (03:46→20:48)
[2018-08-20] MEDS: PANTOPRAZOLE SODIUM 40 MG TABLET.DR PO SCH (06:05)
[2018-08-20] MEDS: CLONIDINE HCL 0.3 MG TABLET PO SCH ×3 (06:05→21:05)
[2018-08-20 06:24] VITALS: BP 132/81
[2018-08-20 06:46] LABS: BASOPHILS % (AUTO) 0.1 % (0.0-2.0); EOSINOPHILS # (AUTO) 0.2 K/uL (0.0-0.7); EOSINOPHILS % (AUTO) 1.5 % (0.0-7.0); HEMATOCRIT 31.7 % (36.7-47.1); HEMOGLOBIN 10.5 g/dL (12.5-16.3); LYMPHOCYTES # (AUTO) 0.7 K/uL (20.0-40.0); LYMPHOCYTES % (AUTO) 6.3 % (20.5-51.5); MEAN CORPUSCULAR HEMOGLOBIN 28.8 uug (23.8-33.4); MEAN CORPUSCULAR HGB CONC 33 g/dL (32.5-36.3); MEAN CORPUSCULAR VOLUME 86.7 fL (73.0-96.2); MONOCYTES % (AUTO) 8.4 % (0.0-11.0); NEUTROPHILS # (AUTO) 9.8 K/uL (1.8-8.9); NEUTROPHILS % (AUTO) 83.7 % (38.5-71.5); PLATELET COUNT (AUTO) 220 K/uL (152-348); RED BLOOD CELL COUNT(AUTO) 3.66 MIL/uL (4.06-5.63); WHITE BLOOD COUNT (AUTO) 11.7 K/uL (3.6-10.2)
[2018-08-20 07:07] LABS: CARBON DIOXIDE 23 mmol/L (21-32); CHLORIDE 108 mmol/L (98-107); CREATININE 2.4 mg/dL (0.6-1.3); GLUCOSE 172 mg/dL (74-106); MAGNESIUM 2.2 mg/dL (1.8-2.4); PHOSPHOROUS 5.6 mg/dL (2.5-4.9); POTASSIUM 3.3 mmol/L (3.5-5.1)
[2018-08-20 07:10] LABS: UREA NITROGEN, BLOOD 80 mg/dL (7-18)
[2018-08-20] MEDS: BUMETANIDE 1 MG TABLET PO SCH ×2 (08:31→17:00)
[2018-08-20] MEDS: ASPIRIN 81 MG TAB.CHEW PO SCH (08:31)
[2018-08-20] MEDS: FERROUS SULFATE 325 MG TABEC PO SCH ×2 (08:34→17:00)
[2018-08-20] MEDS: MONTELUKAST SODIUM 10 MG TABLET PO SCH (08:34)
[2018-08-20] MEDS: GLIMEPIRIDE 2 MG TABLET PO SCH ×2 (08:34→17:00)
[2018-08-20] MEDS: DILTIAZEM HCL CD 120 MG CAP.SR.24H PO SCH ×2 (08:34→17:40)
[2018-08-20] MEDS: [UNRECOGNIZED DRUG - OTHER] PO SCH ×2 (08:36→17:04)
[2018-08-20] MEDS: MIRALAX 17 GM POWD.PACK PO SCH (08:36)
[2018-08-20] MEDS: PREGABALIN 25 MG CAPSULE PO SCH ×2 (08:41→17:00)
[2018-08-20] MEDS ORDERED: POTASSIUM CHLORIDE 10 MEQ TAB.PRT.SR PO ONE (09:45)
[2018-08-20 11:45] VITALS: BP 122/72
[2018-08-20] MEDS: CEFEPIME HCL 2 G in IV DEXTROSE 5% 100 ML IV SCH (12:12)
[2018-08-20] MEDS ORDERED: Insulin Glargine,Hum SQ (12:20)
[2018-08-20] MEDS ORDERED: ALBU2.5V7 NEB (12:20)
[2018-08-20] MEDS ORDERED: IPRA0.2S6 NEB (12:20)
[2018-08-20] MEDS ORDERED: ASPI81TA31 PO (12:20)
[2018-08-20] MEDS ORDERED: DILT120C87 PO (12:20)
[2018-08-20] MEDS ORDERED: BUME1TAB4 PO (12:20)
[2018-08-20] MEDS ORDERED: POLY17PO4 PO (12:20)
[2018-08-20] MEDS ORDERED: LEVO750T46 PO (12:20)
[2018-08-20] MEDS ORDERED: LEVOFLOXACIN 500 MG/D5W 500 MG in PREMIXED 1 EACH IV SCH (14:00)
[2018-08-20] MEDS ORDERED: LEVOFLOXACIN 750MG/D5W 750 MG in PREMIXED 1 EACH IV SCH (14:00)
[2018-08-20 15:45] VITALS: BP 123/69
[2018-08-20] MEDS ORDERED: POTASSIUM CHLORIDE 20 MEQ POWDER PACKET PO ONE (17:00)
[2018-08-20 20:08] VITALS: BP 129/72
[2018-08-20] MEDS: ATORVASTATIN 40 MG TABLET PO SCH (20:44)
[2018-08-20] MEDS: TAMSULOSIN HCL 0.4 MG CAP.SR.24H PO SCH (20:44)
[2018-08-20] MEDS: INSULIN GLARGINE,HUM 300 UNITS/3 ML CARTRIDGE SQ SCH (20:50)
[2018-08-21] VITALS (15 sets, daily range): BP systolic 95–148; BP diastolic 31–95
[2018-08-21] MEDS: INSULIN REGULAR, HUMAN 300 UNIT/3 ML VIAL SQ PRN ×4 (00:26→20:30)
[2018-08-21] MEDS: BLOOD SUGAR DIAGNOSTIC 1 EACH STRIP VI SCH ×6 (00:29→20:24)
[2018-08-21] MEDS: ALBUTEROL SULFATE 2.5 MG/3 ML NEBU NEB SCH ×2 (01:48→08:04)
[2018-08-21] MEDS: IPRATROPIUM BROMIDE 0.5 MG/2.5 ML NEBU NEB SCH ×2 (01:48→08:04)
[2018-08-21] MEDS: PANTOPRAZOLE SODIUM 40 MG TABLET.DR PO SCH (06:09)
[2018-08-21] MEDS: CLONIDINE HCL 0.3 MG TABLET PO SCH ×3 (06:11→21:01)
[2018-08-21 06:50] LABS: CARBON DIOXIDE 24 mmol/L (21-32); CHLORIDE 108 mmol/L (98-107); CREATININE 2.3 mg/dL (0.6-1.3); GLUCOSE 115 mg/dL (74-106); POTASSIUM 3.5 mmol/L (3.5-5.1); UREA NITROGEN, BLOOD 71 mg/dL (7-18)
[2018-08-21] MEDS ORDERED: POTASSIUM CHLORIDE 20 MEQ POWDER PACKET PO ONE (07:45)
[2018-08-21] MEDS ORDERED: AMIODARONE HCL IV 150 MG in IV DEXTROSE 5% 100 ML IV ONE (07:45)
[2018-08-21] MEDS: FERROUS SULFATE 325 MG TABEC PO SCH ×2 (08:06→16:35)
[2018-08-21] MEDS: MIRALAX 17 GM POWD.PACK PO SCH (08:06)
[2018-08-21] MEDS: ASPIRIN 81 MG TAB.CHEW PO SCH (08:06)
[2018-08-21] MEDS: PREGABALIN 25 MG CAPSULE PO SCH ×2 (08:06→16:35)
[2018-08-21] MEDS: GLIMEPIRIDE 2 MG TABLET PO SCH ×2 (08:07→16:38)
[2018-08-21] MEDS: BUMETANIDE 1 MG TABLET PO SCH ×2 (08:07→16:36)
[2018-08-21] MEDS: POTASSIUM CHLORIDE 10 MEQ TAB.PRT.SR PO SCH (08:07)
[2018-08-21] MEDS: MONTELUKAST SODIUM 10 MG TABLET PO SCH (08:07)
[2018-08-21] MEDS: [UNRECOGNIZED DRUG - OTHER] PO SCH ×2 (08:12→16:37)
[2018-08-21] MEDS: DILTIAZEM HCL CD 120 MG CAP.SR.24H PO SCH ×2 (08:20→16:35)
[2018-08-21] MEDS: AMIODARONE HCL IV 900 MG in IV DEXTROSE 5% 482 ML IV PRN (08:46)
[2018-08-21] MEDS: CEFEPIME HCL 2 G in IV DEXTROSE 5% 100 ML IV SCH (12:48)
[2018-08-21] MEDS: IPRATROPIUM BROMIDE 0.5 MG/2.5 ML NEBU NEB PRN (13:30)
[2018-08-21] MEDS: ALBUTEROL SULFATE 2.5 MG/3 ML NEBU NEB PRN (13:31)
[2018-08-21] MEDS: TAMSULOSIN HCL 0.4 MG CAP.SR.24H PO SCH (20:49)
[2018-08-21] MEDS: ATORVASTATIN 40 MG TABLET PO SCH (20:49)
[2018-08-21] MEDS: INSULIN GLARGINE,HUM 300 UNITS/3 ML CARTRIDGE SQ SCH (20:55)
[2018-08-21] MEDS ORDERED: DEXTROSE 50% 50 ML DISP.SYRIN IV PRN (22:30)
[2018-08-22] VITALS (10 sets, daily range): BP systolic 109–142; BP diastolic 39–76
[2018-08-22 05:19] LABS: BASOPHILS % (AUTO) 0.3 % (0.0-2.0); EOSINOPHILS # (AUTO) 0.2 K/uL (0.0-0.7); EOSINOPHILS % (AUTO) 1.8 % (0.0-7.0); HEMATOCRIT 30.3 % (36.7-47.1); HEMOGLOBIN 10.3 g/dL (12.5-16.3); LYMPHOCYTES % (AUTO) 9.3 % (20.5-51.5); MEAN CORPUSCULAR HEMOGLOBIN 29.5 uug (23.8-33.4); MEAN CORPUSCULAR HGB CONC 34 g/dL (32.5-36.3); MEAN CORPUSCULAR VOLUME 86.5 fL (73.0-96.2); MONOCYTES # (AUTO) 0.9 K/uL (2.0-10.0); NEUTROPHILS # (AUTO) 8.4 K/uL (1.8-8.9); NEUTROPHILS % (AUTO) 79.6 % (38.5-71.5); PLATELET COUNT (AUTO) 196 K/uL (152-348); WHITE BLOOD COUNT (AUTO) 10.5 K/uL (3.6-10.2)
[2018-08-22 05:28] LABS: ALANINE AMINOTRANSFERASE 34 U/L (16-63); ALKALINE PHOSPHATASE 65 U/L (50-136); ASPARTATE AMINOTRANSFERASE 13 U/L (15-37); BILIRUBIN,TOTAL 0.5 mg/dL (0.2-1.0); CARBON DIOXIDE 24 mmol/L (21-32); CHLORIDE 105 mmol/L (98-107); CREATININE 2.6 mg/dL (0.6-1.3); GLUCOSE 78 mg/dL (74-106); MAGNESIUM 2.1 mg/dL (1.8-2.4); PHOSPHOROUS 5.1 mg/dL (2.5-4.9); POTASSIUM 3.7 mmol/L (3.5-5.1); TOTAL PROTEIN, SERUM 6.2 g/dL (6.4-8.2); UREA NITROGEN, BLOOD 70 mg/dL (7-18)
[2018-08-22] MEDS: CLONIDINE HCL 0.3 MG TABLET PO SCH ×3 (06:18→21:25)
[2018-08-22] MEDS: PANTOPRAZOLE SODIUM 40 MG TABLET.DR PO SCH (06:18)
[2018-08-22] MEDS: BLOOD SUGAR DIAGNOSTIC 1 EACH STRIP VI SCH ×4 (06:59→20:49)
[2018-08-22] MEDS: AMIODARONE HCL IV 900 MG in IV DEXTROSE 5% 482 ML IV PRN (08:23)
[2018-08-22] MEDS: FERROUS SULFATE 325 MG TABEC PO SCH ×2 (08:40→16:55)
[2018-08-22] MEDS: DILTIAZEM HCL CD 120 MG CAP.SR.24H PO SCH ×2 (08:40→16:55)
[2018-08-22] MEDS: POTASSIUM CHLORIDE 10 MEQ TAB.PRT.SR PO SCH (08:40)
[2018-08-22] MEDS: PREGABALIN 25 MG CAPSULE PO SCH ×2 (08:40→16:56)
[2018-08-22] MEDS: BUMETANIDE 1 MG TABLET PO SCH ×2 (08:40→16:55)
[2018-08-22] MEDS: ASPIRIN 81 MG TAB.CHEW PO SCH (08:40)
[2018-08-22] MEDS: MIRALAX 17 GM POWD.PACK PO SCH (08:41)
[2018-08-22] MEDS: GLIMEPIRIDE 2 MG TABLET PO SCH ×2 (08:42→17:45)
[2018-08-22] MEDS: MONTELUKAST SODIUM 10 MG TABLET PO SCH (08:42)
[2018-08-22] MEDS: [UNRECOGNIZED DRUG - OTHER] PO SCH ×2 (08:44→17:52)
[2018-08-22] MEDS: IPRATROPIUM BROMIDE 0.5 MG/2.5 ML NEBU NEB PRN (08:57)
[2018-08-22] MEDS: ALBUTEROL SULFATE 2.5 MG/3 ML NEBU NEB PRN (08:57)
[2018-08-22] MEDS ORDERED: BUMETANIDE 1 MG/4 ML VIAL IV ONE (11:30)
[2018-08-22] MEDS: AMIODARONE HCL 200 MG TABLET PO SCH ×2 (11:49→20:44)
[2018-08-22] MEDS: INSULIN REGULAR, HUMAN 300 UNIT/3 ML VIAL SQ PRN (12:05)
[2018-08-22] MEDS ORDERED: LEVOFLOXACIN 750MG/D5W 750 MG in PREMIXED 1 EACH IV SCH (14:00)
[2018-08-22] MEDS: CEFEPIME HCL 2 G in IV DEXTROSE 5% 100 ML IV SCH (14:06)
[2018-08-22] MEDS: ATORVASTATIN 40 MG TABLET PO SCH (20:42)
[2018-08-22] MEDS: TAMSULOSIN HCL 0.4 MG CAP.SR.24H PO SCH (20:43)
[2018-08-22] MEDS: INSULIN GLARGINE,HUM 300 UNITS/3 ML CARTRIDGE SQ SCH (20:52)
[2018-08-23 04:00] VITALS: BP 139/75
[2018-08-23 05:21] LABS: BASOPHILS % (AUTO) 0.4 % (0.0-2.0); EOSINOPHILS # (AUTO) 0.2 K/uL (0.0-0.7); EOSINOPHILS % (AUTO) 1.8 % (0.0-7.0); HEMATOCRIT 31.7 % (36.7-47.1); HEMOGLOBIN 10.7 g/dL (12.5-16.3); LYMPHOCYTES # (AUTO) 0.8 K/uL (20.0-40.0); LYMPHOCYTES % (AUTO) 6.9 % (20.5-51.5); MEAN CORPUSCULAR HGB CONC 34 g/dL (32.5-36.3); MEAN CORPUSCULAR VOLUME 86.2 fL (73.0-96.2); MONOCYTES # (AUTO) 0.8 K/uL (2.0-10.0); MONOCYTES % (AUTO) 7.2 % (0.0-11.0); NEUTROPHILS # (AUTO) 9.3 K/uL (1.8-8.9); NEUTROPHILS % (AUTO) 83.7 % (38.5-71.5); PLATELET COUNT (AUTO) 204 K/uL (152-348); RED BLOOD CELL COUNT(AUTO) 3.68 MIL/uL (4.06-5.63); WHITE BLOOD COUNT (AUTO) 11.1 K/uL (3.6-10.2)
[2018-08-23 05:25] LABS: CARBON DIOXIDE 26 mmol/L (21-32); CHLORIDE 102 mmol/L (98-107); CREATININE 2.6 mg/dL (0.6-1.3); GLUCOSE 245 mg/dL (74-106); POTASSIUM 3.4 mmol/L (3.5-5.1); UREA NITROGEN, BLOOD 64 mg/dL (7-18)
[2018-08-23] MEDS: CLONIDINE HCL 0.3 MG TABLET PO SCH ×3 (06:29→21:05)
[2018-08-23] MEDS ORDERED: CLONIDINE HCL 0.1 MG TABLET ONE (06:29)
[2018-08-23] MEDS ORDERED: CLONIDINE HCL 0.2 MG TABLET ONE (06:30)
[2018-08-23] MEDS: PANTOPRAZOLE SODIUM 40 MG TABLET.DR PO SCH (06:30)
[2018-08-23] MEDS: BLOOD SUGAR DIAGNOSTIC 1 EACH STRIP VI SCH ×4 (07:35→21:26)
[2018-08-23 08:00] VITALS: BP 114/72
[2018-08-23] MEDS: DILTIAZEM HCL CD 120 MG CAP.SR.24H PO SCH ×2 (08:36→17:13)
[2018-08-23] MEDS: PREGABALIN 25 MG CAPSULE PO SCH ×2 (08:37→17:11)
[2018-08-23] MEDS: POTASSIUM CHLORIDE 10 MEQ TAB.PRT.SR PO SCH (08:37)
[2018-08-23] MEDS: AMIODARONE HCL 200 MG TABLET PO SCH ×2 (08:37→21:05)
[2018-08-23] MEDS: FERROUS SULFATE 325 MG TABEC PO SCH ×2 (08:37→17:11)
[2018-08-23] MEDS: BUMETANIDE 1 MG TABLET PO SCH ×2 (08:37→17:13)
[2018-08-23] MEDS: ASPIRIN 81 MG TAB.CHEW PO SCH (08:37)
[2018-08-23] MEDS: GLIMEPIRIDE 2 MG TABLET PO SCH ×2 (08:38→17:13)
[2018-08-23] MEDS: MONTELUKAST SODIUM 10 MG TABLET PO SCH (08:39)
[2018-08-23] MEDS: MIRALAX 17 GM POWD.PACK PO SCH (08:39)
[2018-08-23] MEDS: [UNRECOGNIZED DRUG - OTHER] PO SCH ×2 (08:40→17:17)
[2018-08-23] MEDS: INSULIN REGULAR, HUMAN 300 UNIT/3 ML VIAL SQ PRN ×3 (08:43→17:07)
[2018-08-23] MEDS ORDERED: POTASSIUM CHLORIDE 20 MEQ TAB.PRT.SR PO ONE (09:00)
[2018-08-23 12:00] VITALS: BP 124/64
[2018-08-23] MEDS: CEFEPIME HCL 2 G in IV DEXTROSE 5% 100 ML IV SCH (13:06)
[2018-08-23 14:00] VITALS: BP 129/59
[2018-08-23 16:00] VITALS: BP 123/64
[2018-08-23] MEDS: ATORVASTATIN 40 MG TABLET PO SCH (21:05)
[2018-08-23] MEDS: TAMSULOSIN HCL 0.4 MG CAP.SR.24H PO SCH (21:05)
[2018-08-23] MEDS: INSULIN GLARGINE,HUM 300 UNITS/3 ML CARTRIDGE SQ SCH (21:26)
[2018-08-24 00:23] VITALS: BP 139/55
[2018-08-24 05:46] VITALS: BP 143/55
[2018-08-24] MEDS: CLONIDINE HCL 0.3 MG TABLET PO SCH (06:07)
[2018-08-24] MEDS: PANTOPRAZOLE SODIUM 40 MG TABLET.DR PO SCH (06:07)
[2018-08-24 06:27] LABS: BASOPHILS # (AUTO) 0.1 K/uL (0.0-8.0); BASOPHILS % (AUTO) 0.7 % (0.0-2.0); EOSINOPHILS # (AUTO) 0.2 K/uL (0.0-0.7); EOSINOPHILS % (AUTO) 1.5 % (0.0-7.0); HEMATOCRIT 34.2 % (36.7-47.1); HEMOGLOBIN 11.4 g/dL (12.5-16.3); LYMPHOCYTES % (AUTO) 8.6 % (20.5-51.5); MEAN CORPUSCULAR HEMOGLOBIN 28.6 uug (23.8-33.4); MEAN CORPUSCULAR HGB CONC 33 g/dL (32.5-36.3); MEAN CORPUSCULAR VOLUME 86.2 fL (73.0-96.2); MONOCYTES # (AUTO) 0.8 K/uL (2.0-10.0); MONOCYTES % (AUTO) 6.7 % (0.0-11.0); NEUTROPHILS # (AUTO) 9.2 K/uL (1.8-8.9); NEUTROPHILS % (AUTO) 82.5 % (38.5-71.5); PLATELET COUNT (AUTO) 206 K/uL (152-348); RED BLOOD CELL COUNT(AUTO) 3.96 MIL/uL (4.06-5.63); WHITE BLOOD COUNT (AUTO) 11.1 K/uL (3.6-10.2)
[2018-08-24] MEDS: BLOOD SUGAR DIAGNOSTIC 1 EACH STRIP VI SCH (06:34)
[2018-08-24 06:43] LABS: CARBON DIOXIDE 27 mmol/L (21-32); CHLORIDE 103 mmol/L (98-107); CREATININE 2.9 mg/dL (0.6-1.3); GLUCOSE 95 mg/dL (74-106); PHOSPHOROUS 4.8 mg/dL (2.5-4.9); POTASSIUM 3.5 mmol/L (3.5-5.1); UREA NITROGEN, BLOOD 59 mg/dL (7-18)
[2018-08-24] MEDS: MIRALAX 17 GM POWD.PACK PO SCH (08:49)
[2018-08-24] MEDS: ASPIRIN 81 MG TAB.CHEW PO SCH (08:49)
[2018-08-24] MEDS: MONTELUKAST SODIUM 10 MG TABLET PO SCH (08:51)
[2018-08-24] MEDS: GLIMEPIRIDE 2 MG TABLET PO SCH (08:51)
[2018-08-24] MEDS: AMIODARONE HCL 200 MG TABLET PO SCH (08:51)
[2018-08-24] MEDS: PREGABALIN 25 MG CAPSULE PO SCH (08:52)
[2018-08-24] MEDS: DILTIAZEM HCL CD 120 MG CAP.SR.24H PO SCH (08:52)
[2018-08-24] MEDS: BUMETANIDE 1 MG TABLET PO SCH (08:53)
[2018-08-24] MEDS: POTASSIUM CHLORIDE 10 MEQ TAB.PRT.SR PO SCH (08:53)
[2018-08-24] MEDS: FERROUS SULFATE 325 MG TABEC PO SCH (08:53)
[2018-08-24] MEDS: [UNRECOGNIZED DRUG - OTHER] PO SCH (08:56)
[2018-08-24] MEDS ORDERED: AMIO100T4 PO (10:06)
[2018-08-24] MEDS ORDERED: AMIO200T6 PO (10:06)
[2018-08-24 11:02] VITALS: BP 131/60
[2018-09-01] MEDS ORDERED: AMOX-427 PO (11:58)
[2018-09-01] MEDS ORDERED: INSU100V7 SQ (11:58)
[2018-09-01] MEDS ORDERED: DOXY100C2 PO (12:09)
== END 2018-08-24 12:00 | disposition home health service (06) | DRG 280 ==
LOC: ER 11:39 → TELE3 14:27 → MEDSURG3 08-15 13:28 → TELE3 08-18 10:18 → CCU 08-21 07:49 → TELE3 08-23 15:28
DX: I13.0 Hypertensive heart and chronic kidney disease with heart failure and stage 1 through stage 4 chronic kidney disease, or unspecified chronic kidney disease (principal); I50.43 Acute on chronic combined systolic (congestive) and diastolic (congestive) heart failure; I21.A1 Myocardial infarction type 2; J96.01 Acute respiratory failure with hypoxia; J15.9 Unspecified bacterial pneumonia; N18.4 Chronic kidney disease, stage 4 (severe); J44.1 Chronic obstructive pulmonary disease with (acute) exacerbation; L97.518 Non-pressure chronic ulcer of other part of right foot with other specified severity; I47.2 Ventricular tachycardia; E87.1 Hypo-osmolality and hyponatremia; J98.11 Atelectasis; E46 Unspecified protein-calorie malnutrition; E11.22 Type 2 diabetes mellitus with diabetic chronic kidney disease; E78.5 Hyperlipidemia, unspecified; N40.0 Benign prostatic hyperplasia without lower urinary tract symptoms; Z79.51 Long term (current) use of inhaled steroids; K21.9 Gastro-esophageal reflux disease without esophagitis; I48.2 Chronic atrial fibrillation; Z79.01 Long term (current) use of anticoagulants; Z79.84 Long term (current) use of oral hypoglycemic drugs; Z79.899 Other long term (current) drug therapy; D63.8 Anemia in other chronic diseases classified elsewhere; E11.51 Type 2 diabetes mellitus with diabetic peripheral angiopathy without gangrene; I70.235 Atherosclerosis of native arteries of right leg with ulceration of other part of foot; I87.8 Other specified disorders of veins; E11.65 Type 2 diabetes mellitus with hyperglycemia; K86.89 Other specified diseases of pancreas; E87.6 Hypokalemia; D72.829 Elevated white blood cell count, unspecified; T38.0X5A Adverse effect of glucocorticoids and synthetic analogues, initial encounter; Y92.019 Unspecified place in single-family (private) house as the place of occurrence of the external cause; I25.10 Atherosclerotic heart disease of native coronary artery without angina pectoris; F03.90 Unspecified dementia, unspecified severity, without behavioral disturbance, psychotic disturbance, mood disturbance, and anxiety; K59.00 Constipation, unspecified; F32.9 Major depressive disorder, single episode, unspecified; Z90.49 Acquired absence of other specified parts of digestive tract; N20.0 Calculus of kidney; E83.39 Other disorders of phosphorus metabolism; I70.0 Atherosclerosis of aorta
CPT/HCPCS: 36415; 36600; 70030-TC; 71045; 71270; 83550; 83605; 83690; 83735; 84100; 84132; 84443; 85025; 85730; 86301; 87040; 87070; 92523; 92526; 93005; 94640; 94664; 97110; 97112; 97116; 97530; A4663; G0378; J0282; J0692; J1815; J1940; J1956; J2001; J2920; J3480; J3490; J3590; J7040; J7060

== ENCOUNTER 2018-08-29 14:23 | Inpatient (IN) | payer MEDICARE, MEDICAID ==
[~2018-08-29] VITALS: Ht 167.6 cm; Wt 75.7 kg
[~2018-08-29 14:23] MED LIST changes: +ALBU2.5V7 NEB; +AMIO100T4 PO; +AMIO200T6 PO; +ASPI81TA31 PO; -ATEN50TA PO; +DILT120C87 PO; -FURO-151 PO; +IPRA0.2S6 NEB; +Insulin Glargine,Hum SQ; -NIFE30TA91 PO; +POLY17PO4 PO
--- NOTE | 2018-08-29 14:50 | NUR ---
NORMA FORTE AT BEDSIDE FOR MSE.
--- NOTE | 2018-08-29 15:14 | NUR ---
COMMUNICATIONS PROJECT LEAD AND REST ROOM ATTENDANT AT BEDSIDE.
[2018-08-29 15:22] LABS: BASOPHILS # (AUTO) 0.1 K/uL (0.0-8.0); BASOPHILS % (AUTO) 0.8 % (0.0-2.0); EOSINOPHILS # (AUTO) 0.2 K/uL (0.0-0.7); EOSINOPHILS % (AUTO) 2.5 % (0.0-7.0); HEMATOCRIT 30.6 % (36.7-47.1); HEMOGLOBIN 10.2 g/dL (12.5-16.3); LYMPHOCYTES % (AUTO) 11.4 % (20.5-51.5); MEAN CORPUSCULAR HEMOGLOBIN 28.6 uug (23.8-33.4); MEAN CORPUSCULAR HGB CONC 34 g/dL (32.5-36.3); MEAN CORPUSCULAR VOLUME 85.4 fL (73.0-96.2); MONOCYTES # (AUTO) 0.7 K/uL (2.0-10.0); MONOCYTES % (AUTO) 7.4 % (0.0-11.0); NEUTROPHILS % (AUTO) 77.9 % (38.5-71.5); PLATELET COUNT (AUTO) 155 K/uL (152-348); RED BLOOD CELL COUNT(AUTO) 3.59 MIL/uL (4.06-5.63); WHITE BLOOD COUNT (AUTO) 8.9 K/uL (3.6-10.2)
[2018-08-29 15:28] LABS: CARBON DIOXIDE 31 mmol/L (21-32); CHLORIDE 103 mmol/L (98-107); CREATININE 2.5 mg/dL (0.6-1.3); GLUCOSE 64 mg/dL (74-106); POTASSIUM 3.5 mmol/L (3.5-5.1); UREA NITROGEN, BLOOD 46 mg/dL (7-18)
[2018-08-29 15:41] LABS: ALANINE AMINOTRANSFERASE 37 U/L (16-63); ALKALINE PHOSPHATASE 83 U/L (50-136); ASPARTATE AMINOTRANSFERASE 21 U/L (15-37); BILIRUBIN,DIRECT 0.2 mg/dL (0.0-0.2); BILIRUBIN,TOTAL 0.4 mg/dL (0.2-1.0); TOTAL PROTEIN, SERUM 6.9 g/dL (6.4-8.2)
--- NOTE | 2018-08-29 15:48 | NUR ---
Patient's family requested food for the patient. ERMD stated OK, sandwich provided.
[2018-08-29] MEDS ORDERED: AZITHROMYCIN IV 500 MG in IV DEXTROSE 5% 250 ML IV ONE (16:30)
[2018-08-29] MEDS ORDERED: CEFTRIAXONE 1 G in IV DEXTROSE 5% 50 ML IV ONE (16:30)
[2018-08-29] MEDS ORDERED: PIPERACILLIN SODIUM/TAZOBACTAM 3.375 G in IV DEXTROSE 5% 50 ML IV ONE (16:30)
[2018-08-29] MEDS ORDERED: PIPERACILLIN/TAZOBACTAM/D5W 50 ML IV ONE (16:31)
--- NOTE | 2018-08-29 17:11 | NUR ---
ADMITTING REPORT GIVEN TO GEORGES ABERNATHY.
--- NOTE | 2018-08-29 17:29 | NUR ---
Pt. admitted to TELE 318, under care of Dr. RHODES. Belongs List completed
[2018-08-29 17:37] VITALS: BP 140/67
--- NOTE | 2018-08-29 18:58 | NUR ---
PATIENT ADMIT OT TELE, AO4, NO SOB ON RA, INITIATE CARE PLAN
[2018-08-29] MEDS ORDERED: ONDANSETRON 4 MG/2 ML VIAL IV PRN (19:30)
[2018-08-29] MEDS ORDERED: TRAMADOL HCL 50 MG TABLET PO PRN ×2 (19:30→20:02)
[2018-08-29] MEDS ORDERED: MECLIZINE HCL 25 MG TABLET PO PRN (19:30)
[2018-08-29] MEDS ORDERED: DEXTROSE 50% 50 ML DISP.SYRIN IV PRN (19:30)
[2018-08-29] MEDS ORDERED: ACETAMINOPHEN 325 MG TABLET PO PRN (19:30)
[2018-08-29] MEDS ORDERED: IPRATROPIUM BROMIDE 0.5 MG/2.5 ML NEBU NEB PRN (19:30)
[2018-08-29] MEDS ORDERED: LEVOFLOXACIN 250MG /D5W 250 MG in PREMIXED 1 EACH IV SCH (19:30)
[2018-08-29] MEDS ORDERED: ALBUTEROL SULFATE 2.5 MG/3 ML NEBU NEB PRN (19:30)
[2018-08-29 19:34] VITALS: BP 161/86
[2018-08-29] MEDS: ATORVASTATIN 20 MG TABLET PO SCH (21:35)
[2018-08-29] MEDS: TAMSULOSIN HCL 0.4 MG CAP.SR.24H PO SCH (21:35)
[2018-08-29] MEDS: BLOOD SUGAR DIAGNOSTIC 1 EACH STRIP VI SCH (21:50)
[2018-08-29] MEDS: INSULIN GLARGINE,HUM 300 UNITS/3 ML CARTRIDGE SQ SCH (21:56)
[2018-08-29] MEDS: PIPERACILLIN/TAZOBACTAM/D5W 2.25 G in PREMIXED 1 EACH IV SCH (23:25)
[2018-08-29 23:47] VITALS: BP 181/82
[2018-08-30 03:31] VITALS: BP 151/79
[2018-08-30] MEDS: PIPERACILLIN/TAZOBACTAM/D5W 2.25 G in PREMIXED 1 EACH IV SCH ×4 (06:21→23:39)
--- NOTE | 2018-08-30 06:37 | NUR ---
PATIENT IS AWAKE AND ALERT, BLOOD GLUCOSE IS 42 AT 0630. 2 ORANGE JUICES GIVEN. WILL CONTINUE TO MONITOR.
[2018-08-30] MEDS: BLOOD SUGAR DIAGNOSTIC 1 EACH STRIP VI SCH ×5 (07:00→21:50)
--- NOTE | 2018-08-30 07:00 | NUR ---
RECHECKED GLUCOSE 89. PATIENT IS MORE ALERT BUT C/O BEING COLD. REPORT GIVEN TO THE DAY SHIFT GEORGES BRIGHT. COMFORT AND SAFETY PROVIDED.
[2018-08-30 07:20] LABS: BASOPHILS # (AUTO) 0.1 K/uL (0.0-8.0); BASOPHILS % (AUTO) 0.7 % (0.0-2.0); EOSINOPHILS # (AUTO) 0.2 K/uL (0.0-0.7); EOSINOPHILS % (AUTO) 2.3 % (0.0-7.0); HEMATOCRIT 32.6 % (36.7-47.1); LYMPHOCYTES # (AUTO) 0.7 K/uL (20.0-40.0); LYMPHOCYTES % (AUTO) 8.1 % (20.5-51.5); MEAN CORPUSCULAR HGB CONC 34 g/dL (32.5-36.3); MEAN CORPUSCULAR VOLUME 85.6 fL (73.0-96.2); MONOCYTES # (AUTO) 0.6 K/uL (2.0-10.0); MONOCYTES % (AUTO) 6.6 % (0.0-11.0); NEUTROPHILS # (AUTO) 7.2 K/uL (1.8-8.9); NEUTROPHILS % (AUTO) 82.3 % (38.5-71.5); PLATELET COUNT (AUTO) 137 K/uL (152-348); RED BLOOD CELL COUNT(AUTO) 3.81 MIL/uL (4.06-5.63); WHITE BLOOD COUNT (AUTO) 8.7 K/uL (3.6-10.2)
[2018-08-30 07:23] LABS: ALANINE AMINOTRANSFERASE 30 U/L (16-63); ALKALINE PHOSPHATASE 84 U/L (50-136); ASPARTATE AMINOTRANSFERASE 20 U/L (15-37); BILIRUBIN,TOTAL 0.5 mg/dL (0.2-1.0); CARBON DIOXIDE 28 mmol/L (21-32); CHLORIDE 105 mmol/L (98-107); CREATININE 2.6 mg/dL (0.6-1.3); GLUCOSE 72 mg/dL (74-106); MAGNESIUM 2.3 mg/dL (1.8-2.4); PHOSPHOROUS 3.4 mg/dL (2.5-4.9); POTASSIUM 2.9 mmol/L (3.5-5.1); TOTAL PROTEIN, SERUM 6.7 g/dL (6.4-8.2); UREA NITROGEN, BLOOD 45 mg/dL (7-18)
[2018-08-30] MEDS: ASPIRIN 81 MG TAB.CHEW PO SCH (08:09)
[2018-08-30] MEDS: MONTELUKAST SODIUM 10 MG TABLET PO SCH (08:10)
[2018-08-30] MEDS: DILTIAZEM HCL CD 120 MG CAP.SR.24H PO SCH (08:10)
[2018-08-30] MEDS: AMIODARONE HCL 200 MG TABLET PO SCH (08:10)
[2018-08-30] MEDS: PREGABALIN 25 MG CAPSULE PO SCH ×2 (08:10→16:04)
[2018-08-30] MEDS: FUROSEMIDE 20 MG/2 ML VIAL IV SCH (08:11)
[2018-08-30] MEDS: FERROUS SULFATE 325 MG TABEC PO SCH ×2 (08:11→16:05)
[2018-08-30] MEDS: GLIMEPIRIDE 2 MG TABLET PO SCH ×2 (08:11→17:10)
[2018-08-30] MEDS: CLONIDINE HCL 0.3 MG TABLET PO SCH ×3 (08:11→16:05)
[2018-08-30] MEDS: MIRALAX 17 GM POWD.PACK PO SCH (08:11)
[2018-08-30] MEDS ORDERED: POTASSIUM CHLORIDE 20 MEQ TAB.PRT.SR PO ONE (08:15)
[2018-08-30] MEDS: FLUTICASONE/VILANTEROL 1 EACH BLST.W.DEV INH SCH (08:20)
[2018-08-30] MEDS ORDERED: AMIODARONE HCL 400 MG PO SCH (09:00)
[2018-08-30] MEDS ORDERED: APIXABAN 5 MG TABLET PO ONE (09:00)
[2018-08-30] MEDS ORDERED: Medication Not On Formulary EA (Glimepiride (Amaryl) 2 MG) PO SCH (09:00)
[2018-08-30] MEDS ORDERED: Medication Not On Formulary EA (Apixaban (Eliquis) 2.5 MG) PO SCH (09:00)
[2018-08-30 11:50] VITALS: BP 152/96
[2018-08-30] MEDS ORDERED: MISCELLANEOUS MED XX PRN (13:30)
[2018-08-30] MEDS: LINAGLIPTIN 5 MG TABLET PO SCH (14:14)
--- NOTE | 2018-08-30 14:22 | NUR ---
WOUND CARE CONSULT: PT PRESENTS WITH DRY WOUNDS TO RT 1ST AND 2ND TOES AND LEFT HEEL INTACT DEEP TISSUE INJURY, PRESENT ON ADMISSION. DUSKY COLOR NOTED TO RT DISTAL FOOT AND TOES, PRESENT ON ADMISSION. RECOMMEND DPM CONSULT. DR BONILLA NOTIFIED OF DPM CONSULT REQUEST/FOLLOWUP. PT CONTINENT AT THIS TIME. PT REFUSED TO TURN FOR FULL SKIN ASSESSMENT OF BACK/SACRAL/BUTTOCKS AREA. WILL SEE PRN. FORTE IN AGREEMENT WITH PLAN OF CARE. Addendum: 08/30/18 at 1424 by MARY BLISS RN Amended: Links added. Addendum: 08/30/18 at 1424 by MARY BLISS RN CURRENT SULTANA SCORE IS 17.
[2018-08-30] MEDS ORDERED: Z GUARD REMEDY PASTE 57 GM TUBE TOP PRN (14:30)
[2018-08-30 15:27] VITALS: BP 138/67
[2018-08-30] MEDS: INSULIN REGULAR, HUMAN 300 UNIT/3 ML VIAL SQ PRN (16:13)
[2018-08-30] MEDS ORDERED: ASPIRIN EC 325 MG TABLET.DR PO ONE (19:40)
[2018-08-30] MEDS: TAMSULOSIN HCL 0.4 MG CAP.SR.24H PO SCH (20:02)
[2018-08-30] MEDS: ATORVASTATIN 20 MG TABLET PO SCH (20:02)
[2018-08-30 20:04] VITALS: BP 128/69
[2018-08-30] MEDS: INSULIN GLARGINE,HUM 300 UNITS/3 ML CARTRIDGE SQ SCH (21:00)
--- NOTE | 2018-08-30 21:56 | NUR ---
lantus was held. Glucose is 92, patient is not eating well, tends to become hypoglycemic in the AM. MD will be notified. Comfort and safety provided.
--- NOTE | 2018-08-30 22:00 | NUR ---
patient was transferred to [facility]. report given. comfort and safety provided
[2018-08-31 01:19] VITALS: BP 148/82
[2018-08-31 05:08] VITALS: BP 153/90
[2018-08-31] MEDS: PIPERACILLIN/TAZOBACTAM/D5W 2.25 G in PREMIXED 1 EACH IV SCH ×2 (05:36→11:36)
--- NOTE | 2018-08-31 06:21 | NUR ---
PATIENT ASLEEP IN BED. EASILY AROUSABLE. SLEPT AT INTERVALS THROUGHOUT THE NIGHT. VSS. CALL LIGHT IN REACH. ALL NEEDS ATTENDED, WILL CONTINUE TO MONITOR.
[2018-08-31] MEDS: BLOOD SUGAR DIAGNOSTIC 1 EACH STRIP VI SCH ×4 (06:38→20:47)
--- NOTE | 2018-08-31 06:45 | NUR ---
PATIENT ON TELE A-FIB, CONTROLLED.
--- NOTE | 2018-08-31 08:00 | NUR ---
AWAKE ALERT AND ORIENTED X3, NO SS OF AUTE PAIN OR DISTRESS,GETTING UP AND ABOUT INDEPENDENTLY WITH STEADY GAIT. SR ON MONITOR
[2018-08-31] MEDS: LINAGLIPTIN 5 MG TABLET PO SCH (09:16)
[2018-08-31] MEDS: ASPIRIN 81 MG TAB.CHEW PO SCH (09:16)
[2018-08-31] MEDS: FUROSEMIDE 20 MG/2 ML VIAL IV SCH (09:16)
[2018-08-31] MEDS: GLIMEPIRIDE 2 MG TABLET PO SCH ×2 (09:16→17:39)
[2018-08-31] MEDS: PREGABALIN 25 MG CAPSULE PO SCH ×2 (09:16→17:39)
[2018-08-31] MEDS: MIRALAX 17 GM POWD.PACK PO SCH (09:17)
[2018-08-31] MEDS: FERROUS SULFATE 325 MG TABEC PO SCH ×2 (09:17→17:39)
[2018-08-31] MEDS: MONTELUKAST SODIUM 10 MG TABLET PO SCH (09:17)
[2018-08-31] MEDS: FLUTICASONE/VILANTEROL 1 EACH BLST.W.DEV INH SCH (09:19)
[2018-08-31] MEDS: CLONIDINE HCL 0.3 MG TABLET PO SCH ×3 (09:23→17:39)
[2018-08-31] MEDS: AMIODARONE HCL 200 MG TABLET PO SCH (09:24)
[2018-08-31] MEDS: DILTIAZEM HCL CD 120 MG CAP.SR.24H PO SCH (09:25)
[2018-08-31] MEDS: INSULIN REGULAR, HUMAN 300 UNIT/3 ML VIAL SQ PRN (11:34)
[2018-08-31 12:19] VITALS: BP 134/73
--- NOTE | 2018-08-31 13:30 | NUR ---
CONTINUE IV ANTIBIOTICS ORDERED, NO SS OF DISTRESS
[2018-08-31 15:25] VITALS: BP 138/73
[2018-08-31] MEDS ORDERED: FUROSEMIDE 20 MG/2 ML VIAL IV ONE (17:00)
--- NOTE | 2018-08-31 18:05 | NUR ---
per primary counselor patient can be dcd in am if remains stable. NO SS OF PAIN OR DISTRESS. Remains afib on monitor
--- NOTE | 2018-08-31 19:30 | NUR ---
Received patient from the day shift RN. Family is present. Explained to the patient about the need to use the call light. Comfort and safety provided.
[2018-08-31] MEDS: TAMSULOSIN HCL 0.4 MG CAP.SR.24H PO SCH (20:18)
[2018-08-31] MEDS: PIPERACILLIN/TAZOBACTAM/D5W 3.375 G in PREMIXED 1 EACH IV SCH (20:18)
[2018-08-31] MEDS: ATORVASTATIN 20 MG TABLET PO SCH (20:18)
[2018-08-31 20:29] VITALS: BP 114/63
[2018-08-31] MEDS: INSULIN GLARGINE,HUM 300 UNITS/3 ML CARTRIDGE SQ SCH (20:56)
[2018-09-01 00:49] VITALS: BP 144/69
[2018-09-01] MEDS: PIPERACILLIN/TAZOBACTAM/D5W 3.375 G in PREMIXED 1 EACH IV SCH (04:21)
[2018-09-01 05:07] VITALS: BP 140/81
[2018-09-01] MEDS: BLOOD SUGAR DIAGNOSTIC 1 EACH STRIP VI SCH ×2 (06:47→12:07)
--- NOTE | 2018-09-01 08:00 | NUR ---
Patient slept well, episodes of sleep apnea noted. Used the urinal 4 times, walked to the bathroom twice. Complained of being cold. Tunica juice given at night. Bed alarm is on, IV is patent. Report was endorsed to the day shift.
[2018-09-01] MEDS: ASPIRIN 81 MG TAB.CHEW PO SCH (09:25)
[2018-09-01] MEDS: PREGABALIN 25 MG CAPSULE PO SCH (09:25)
[2018-09-01] MEDS: AMIODARONE HCL 200 MG TABLET PO SCH (09:25)
[2018-09-01] MEDS: MONTELUKAST SODIUM 10 MG TABLET PO SCH (09:25)
[2018-09-01] MEDS: LINAGLIPTIN 5 MG TABLET PO SCH (09:25)
[2018-09-01] MEDS: GLIMEPIRIDE 2 MG TABLET PO SCH (09:26)
[2018-09-01] MEDS: FERROUS SULFATE 325 MG TABEC PO SCH (09:26)
[2018-09-01] MEDS: CLONIDINE HCL 0.3 MG TABLET PO SCH ×2 (09:26→13:46)
[2018-09-01] MEDS: MIRALAX 17 GM POWD.PACK PO SCH (09:27)
[2018-09-01] MEDS: FUROSEMIDE 20 MG/2 ML VIAL IV SCH (09:27)
[2018-09-01] MEDS: DILTIAZEM HCL CD 120 MG CAP.SR.24H PO SCH (09:27)
[2018-09-01] MEDS: FLUTICASONE/VILANTEROL 1 EACH BLST.W.DEV INH SCH (09:31)
[2018-09-01 11:22] VITALS: BP 140/77
[2018-09-01] MEDS ORDERED: AMOX-427 PO (11:58)
[2018-09-01] MEDS ORDERED: INSU100V7 SQ (11:58)
[2018-09-01] MEDS: INSULIN REGULAR, HUMAN 300 UNIT/3 ML VIAL SQ PRN (12:08)
[2018-09-01] MEDS ORDERED: DOXY100C2 PO (12:09)
[2018-09-01] MEDS ORDERED: PIPERACILLIN/TAZOBACTAM/D5W 3.375 G in PREMIXED 1 EACH IV ONE (12:15)
[2018-09-01 13:46] VITALS: BP 128/69
--- NOTE | 2018-09-01 14:32 | NUR ---
PATIENT IS AO 4, NO SOB OR ANY DISTRESS, ABX GIVEN, D/C TEACHING IS DONE, MEDICATIONS RETURNED, PICTURES TAKEN, IV REMOVED PATIENT WENT DOWN BY WHEEL CHAIR WITH FAMILY AND ME
== END 2018-09-01 14:30 | disposition home health service (06) | DRG 280 ==
LOC: ER 14:23 → TELE3 17:16
PROVIDERS: ADMIT Internal Medicine; ATTEND Internal Medicine
DX: I13.0 Hypertensive heart and chronic kidney disease with heart failure and stage 1 through stage 4 chronic kidney disease, or unspecified chronic kidney disease (principal); J69.0 Pneumonitis due to inhalation of food and vomit; I21.A1 Myocardial infarction type 2; I50.43 Acute on chronic combined systolic (congestive) and diastolic (congestive) heart failure; D68.59 Other primary thrombophilia; E11.22 Type 2 diabetes mellitus with diabetic chronic kidney disease; N40.0 Benign prostatic hyperplasia without lower urinary tract symptoms; I48.2 Chronic atrial fibrillation; Z79.82 Long term (current) use of aspirin; Z79.4 Long term (current) use of insulin; E11.649 Type 2 diabetes mellitus with hypoglycemia without coma; E78.5 Hyperlipidemia, unspecified; I25.2 Old myocardial infarction; D63.8 Anemia in other chronic diseases classified elsewhere; K21.9 Gastro-esophageal reflux disease without esophagitis; K56.41 Fecal impaction; N18.9 Chronic kidney disease, unspecified; I25.5 Ischemic cardiomyopathy; K86.9 Disease of pancreas, unspecified; Z79.51 Long term (current) use of inhaled steroids; Z87.442 Personal history of urinary calculi; Z90.49 Acquired absence of other specified parts of digestive tract; I25.10 Atherosclerotic heart disease of native coronary artery without angina pectoris; Z74.09 Other reduced mobility; J44.9 Chronic obstructive pulmonary disease, unspecified
CPT/HCPCS: 36415; 70030-TC; 71045; 83735; 84100; 85025; 85730; 87040; 93005; 97116; 97530; A4663; G0378; J1815; J1940; J2543; J7050

== ENCOUNTER 2018-09-06 12:18 | Inpatient (IN) | payer MEDICARE, MEDICAID ==
[~2018-09-06] VITALS: Ht 165.1 cm; Wt 74.6 kg
[2018-09-06] VITALS (8 sets, daily range): BP systolic 122–172; BP diastolic 30–83
[~2018-09-06 12:18] MED LIST changes: -AMIO200T6 PO; +AMOX-427 PO; +DOXY100C2 PO; +INSU100V7 SQ; -Insulin Glargine,Hum SQ
[2018-09-06 13:10] LABS: CARBON DIOXIDE 28 mmol/L (21-32); CHLORIDE 103 mmol/L (98-107); CREATININE 2.4 mg/dL (0.6-1.3); GLUCOSE 155 mg/dL (74-106); POTASSIUM 3.1 mmol/L (3.5-5.1); UREA NITROGEN, BLOOD 44 mg/dL (7-18)
--- NOTE | 2018-09-06 13:15 | NUR ---
NURSING NOTE: MADE AWARE OF TRANSIENT BRADYCARDIA
[2018-09-06 13:22] LABS: ALANINE AMINOTRANSFERASE 27 U/L (16-63); ALKALINE PHOSPHATASE 75 U/L (50-136); ASPARTATE AMINOTRANSFERASE 15 U/L (15-37); BILIRUBIN,DIRECT 0.1 mg/dL (0.0-0.2); BILIRUBIN,TOTAL 0.4 mg/dL (0.2-1.0); TOTAL PROTEIN, SERUM 6.3 g/dL (6.4-8.2)
[2018-09-06 13:28] LABS: BASOPHILS % (AUTO) 0.6 % (0.0-2.0); EOSINOPHILS # (AUTO) 0.2 K/uL (0.0-0.7); EOSINOPHILS % (AUTO) 4.3 % (0.0-7.0); HEMOGLOBIN 9.8 g/dL (12.5-16.3); MEAN CORPUSCULAR HEMOGLOBIN 28.9 uug (23.8-33.4); MEAN CORPUSCULAR HGB CONC 34 g/dL (32.5-36.3); MEAN CORPUSCULAR VOLUME 85.6 fL (73.0-96.2); MONOCYTES # (AUTO) 0.7 K/uL (2.0-10.0); MONOCYTES % (AUTO) 12.7 % (0.0-11.0); NEUTROPHILS # (AUTO) 3.8 K/uL (1.8-8.9); NEUTROPHILS % (AUTO) 64.4 % (38.5-71.5); PLATELET COUNT (AUTO) 254 K/uL (152-348); RED BLOOD CELL COUNT(AUTO) 3.39 MIL/uL (4.06-5.63); WHITE BLOOD COUNT (AUTO) 5.8 K/uL (3.6-10.2)
[2018-09-06] MEDS ORDERED: POTASSIUM BICARBONATE/CIT AC 25 MEQ TABLET.EFF PO ONE (13:45)
--- NOTE | 2018-09-06 13:45 | NUR ---
NURSING NOTE: NOTED WITH BRADYCARDIA, BLOOD PRESSURE SUSTAINED. STABLE ON O2 AT 4LPM VIA NC SATING 100%
[2018-09-06] MEDS ORDERED: POTASSIUM BICARBONATE/CIT AC 25 MEQ TABLET.EFF ONE (13:47)
--- NOTE | 2018-09-06 14:45 | NUR ---
NURSING NOTE: NOTED WITH CONTINUED PROFOUND BRADYCARDIA. CARDIOLOGY PAGED. AWAITING CALL BACK FROM DR. DUNBAR
--- NOTE | 2018-09-06 14:48 | NUR ---
NURSING NOTE: REPORT GIVEN TO CCU NURSE. PT DENIES DIZZINESS AND CHEST PAIN. NOTED WITH CONTINUED EPISODES OF BRADYCARDIA. ON 02 AT 4LPM. TRANSFER WITH MONITOR ON ASHLEY. ER DOCTOR PRESENT AT BEDSIDE IN ICU DURING TRANSFER.
--- NOTE | 2018-09-06 14:50 | NUR ---
NURSING NOTE: ATROPINE 0.5MG ADMINISTERED IN ICU.
--- NOTE | 2018-09-06 14:55 | NUR ---
REPORT received from Quang SU , 83 yr old male admitted from ER to CCU % for shortness of breath, dx CHF and bradycardia. patient on nasal cannula 4 l and is c/o need for more oxygen. o2 mask 10 l applied. o2 sat 100 %. Dr capellan here and ordered Atropine 0.5mg given IV by Quang SU. bp stable. family at the bedside. lasix given 20 mg per [facility] [employer] ordered. patient voided small amount urine. Dinner tray given and ate well. ekg atrial fibrillation slow vr 39-60/min. confirmed by 12 lead ekg Addendum: 09/06/18 at 1826 by KARLA MURDOCK RN Amended: Links added.
[2018-09-06] MEDS ORDERED: ATROPINE SULFATE 1 MG/10 ML DISP.SYRIN ONE (15:13)
[2018-09-06] MEDS ORDERED: ATROPINE SULFATE 1 MG/10 ML DISP.SYRIN IV ONE (15:15)
[2018-09-06] MEDS ORDERED: FUROSEMIDE 40 MG/4 ML VIAL IV ONE (15:30)
[2018-09-06] MEDS ORDERED: HYDROCODONE/APAP 5-325MG TABLET PO PRN (15:30)
[2018-09-06] MEDS ORDERED: Z GUARD REMEDY PASTE 57 GM TUBE TOP PRN (15:30)
[2018-09-06] MEDS ORDERED: MAGNESIUM HYDROXIDE 30 ML LIQUID UDC PO PRN (15:30)
[2018-09-06] MEDS ORDERED: ACETAMINOPHEN 325 MG TABLET PO PRN (15:30)
[2018-09-06] MEDS ORDERED: ZOLPIDEM 5 MG TABLET PO PRN (15:30)
[2018-09-06] MEDS ORDERED: ONDANSETRON 4 MG/2 ML VIAL IV PRN (15:30)
[2018-09-06] MEDS ORDERED: PREGABALIN 50 MG CAPSULE PO SCH (19:15)
--- NOTE | 2018-09-06 19:49 | NUR ---
Received pt resting in bed, awake, AxO x3. Cymraes speaking but understands some French. Discussed and reviewed plan of care with pt, pt passive but verbalizes understanding. O2 sat 97% via NC 4L. Tele noted to be SB with a HR of 58. Pt denies SOB, chest pain, or severe discomfort at this time. Fluid restriction of 1 L/day observed. Aspiration precautions and safety measures initiated. Bed alarm on. Continue to monitor. Addendum: 09/06/18 at 2443 by SAM MALDONADO RN Amended: Links added.
[2018-09-06] MEDS: LEVOTHYROXINE SODIUM 25 MCG TABLET PO SCH (19:55)
[2018-09-06] MEDS: predniSONE 5 MG TABLET PO SCH (19:55)
--- NOTE | 2018-09-06 20:25 | NUR ---
Family members at bedside at this time.
[2018-09-06] MEDS: APIXABAN 5 MG TABLET PO SCH (20:37)
[2018-09-06] MEDS: ATORVASTATIN 10 MG TABLET PO SCH (20:38)
[2018-09-06] MEDS: TAMSULOSIN HCL 0.4 MG CAP.SR.24H PO SCH (20:38)
[2018-09-06] MEDS ORDERED: HEPARIN SODIUM,PORCINE 5,000 UNITS/ML VIAL SQ SCH (21:00)
--- NOTE | 2018-09-06 23:45 | NUR ---
Assisted out of bed to void. Only voided about 80 ml of clear yellow urine. Noted that patient's BPs is elevated every time he gets out of bed to use the urinal. Attempted to insert major catheter as ordered but patient got extremely agitated speaking in his language. An attempt was made to have patient's son talk to him over the phone to explain Major catheter insertion, but futile. Son Sara will come.
[2018-09-07] VITALS (13 sets, daily range): BP systolic 142–171; BP diastolic 65–105
--- NOTE | 2018-09-07 00:30 | NUR ---
Pt is restless and states he has the urge to urinate. with urinary retention. Bladder scanner performed and noted to be > 490 cc. Order of major cath in place. Continue to monitor.
--- NOTE | 2018-09-07 00:54 | NUR ---
Gonzalez catheter successfully inserted aseptically, with size FR 16 by GEORGES HOFFMAN. Family member remains at bedside to translate and explain procedure to pt. Clear, yellow urine noted after insertion. O2 sat remains above >96%. Continue to monitor.
[2018-09-07 05:27] LABS: BASOPHILS % (AUTO) 0.6 % (0.0-2.0); EOSINOPHILS # (AUTO) 0.1 K/uL (0.0-0.7); EOSINOPHILS % (AUTO) 1.2 % (0.0-7.0); HEMATOCRIT 32.6 % (36.7-47.1); LYMPHOCYTES % (AUTO) 14.2 % (20.5-51.5); MEAN CORPUSCULAR HEMOGLOBIN 28.8 uug (23.8-33.4); MEAN CORPUSCULAR HGB CONC 34 g/dL (32.5-36.3); MEAN CORPUSCULAR VOLUME 85.4 fL (73.0-96.2); MONOCYTES # (AUTO) 0.7 K/uL (2.0-10.0); PLATELET COUNT (AUTO) 285 K/uL (152-348); RED BLOOD CELL COUNT(AUTO) 3.81 MIL/uL (4.06-5.63); WHITE BLOOD COUNT (AUTO) 6.8 K/uL (3.6-10.2)
[2018-09-07 05:52] LABS: CARBON DIOXIDE 28 mmol/L (21-32); CHLORIDE 100 mmol/L (98-107); CHOLESTEROL 163 mg/dL (<200); CREATININE 2.6 mg/dL (0.6-1.3); GLUCOSE 131 mg/dL (74-106); HDL CHOLESTEROL 66 mg/dL (40-60); MAGNESIUM 2.1 mg/dL (1.8-2.4); PHOSPHOROUS 4.6 mg/dL (2.5-4.9); POTASSIUM 3.5 mmol/L (3.5-5.1); TRIGLYCERIDES 39 MG/DL (30-150); UREA NITROGEN, BLOOD 43 mg/dL (7-18)
--- NOTE | 2018-09-07 05:58 | NUR ---
Pt slept intermittently throughout the night. Pt had episodes of restlessness and agitation during the night, redirection was provided. Pt HR remained between 60 - 80s. Comfort measures and safety precautions maintained at all times. Aspiration precautions observed. Will continue to monitor and endorse accordingly to day shift nurse. Addendum: 09/07/18 at 0658 by SAM MALDONADO RN AM care done at this time. Pt tolerated well, O2 sat remained up to 98%. Pt kept clean and dry. Pt assisted turning and repositioning.
[2018-09-07] MEDS: LEVOTHYROXINE SODIUM 25 MCG TABLET PO SCH (06:21)
[2018-09-07] MEDS: predniSONE 5 MG TABLET PO SCH (08:18)
[2018-09-07] MEDS: ASPIRIN 81 MG TAB.CHEW PO SCH (08:18)
[2018-09-07] MEDS: PREGABALIN 25 MG CAPSULE PO SCH ×2 (08:18→16:45)
[2018-09-07] MEDS: FERROUS SULFATE 325 MG TABEC PO SCH ×2 (08:18→16:45)
[2018-09-07] MEDS: MONTELUKAST SODIUM 10 MG TABLET PO SCH (08:19)
[2018-09-07] MEDS: GLIMEPIRIDE 2 MG TABLET PO SCH (08:19)
[2018-09-07] MEDS: LINAGLIPTIN 5 MG TABLET PO SCH (08:19)
[2018-09-07] MEDS: APIXABAN 5 MG TABLET PO SCH ×2 (08:25→16:44)
[2018-09-07] MEDS ORDERED: Medication Not On Formulary EA (Sitagliptin Phosphate (Januvia) 50 MG) PO SCH (09:00)
--- NOTE | 2018-09-07 09:15 | NUR ---
nephrology services Dr. Chisholm in the unit to examine pt. report given, and orders to continue with care plan received.
--- NOTE | 2018-09-07 11:55 | NUR ---
telephone report given to Kinjal Michelle who will continue with care plan.
--- NOTE | 2018-09-07 12:15 | NUR ---
Patient been berry picker to be taken to room 308 under telemetry monitoring. Patient left unit AAOX3-4. vitals stable. No c/of pain and accompanied by . IV line patent. No belongings noted at this time.
--- NOTE | 2018-09-07 12:30 | NUR ---
RECEIVED PATIENT FROM CCU, AND TELEMETRY LEADS APPLIED. PATIENT IS CHRONIC CONTROLLED AFIB AND AFTER SETTLED INTO THE ROOM RATE IS 76. OXYGEN AT 2L. PATIENT CONTINUES REPORTS ABDOMINAL PAIN AND RIGHT TOE WOUNDS. PATIENT WAS ORIENTED TO ROOM AND LUNCH SERVED.
[2018-09-07] MEDS: FUROSEMIDE 20 MG TABLET PO SCH (16:46)
[2018-09-07] MEDS: hydrALAZINE HCL 20 MG/1 ML VIAL IV PRN (16:54)
--- NOTE | 2018-09-07 17:00 | NUR ---
HYDRALAZINE ADMINISTERED FOR INCREASED BP OF 171/86. PATIENT IN NO DISTRESS AT THE TIME OF BP.
--- NOTE | 2018-09-07 18:20 | NUR ---
Patient has been cooperative with care throughout the shift, no distress noted with breathing although patient does report some mild difficulty breathing. telemetry reads controlled a-fib at the rate of 87 bpm. Patient provided with a walker for ambulation to restroom. Family at the bedside currently.
[2018-09-07] MEDS ORDERED: FUROSEMIDE 20 MG/2 ML VIAL IV ONE (19:00)
--- NOTE | 2018-09-07 19:30 | NUR ---
PATIENT ALERT ORIENTED, NO SOB NO CHEST PAIN, HOB ELEVATED, ON TELE MONITOR A FIB CONTROLLED. PATIENT HAS NO COMPLAIN OF PAIN AT THIS TIME. ISABEL CATH PATENT DRAINING WITH YELLOW COLOR URINE IN MODERATE AMOUNT. FAMILY AT BEDSIDE. CONT TO MONITOR.
[2018-09-07] MEDS: TAMSULOSIN HCL 0.4 MG CAP.SR.24H PO SCH (20:00)
[2018-09-07] MEDS: ATORVASTATIN 10 MG TABLET PO SCH (20:00)
[2018-09-07] MEDS: hydrALAZINE HCL 25 MG TABLET PO SCH (22:38)
[2018-09-07] MEDS: ISOSORBIDE DINITRATE 10 MG TABLET PO SCH (22:38)
[2018-09-08 04:36] VITALS: BP 169/83
[2018-09-08 06:25] LABS: BASOPHILS % (AUTO) 0.7 % (0.0-2.0); EOSINOPHILS # (AUTO) 0.1 K/uL (0.0-0.7); HEMATOCRIT 32.5 % (36.7-47.1); LYMPHOCYTES % (AUTO) 17.7 % (20.5-51.5); MEAN CORPUSCULAR HEMOGLOBIN 28.9 uug (23.8-33.4); MEAN CORPUSCULAR HGB CONC 34 g/dL (32.5-36.3); MEAN CORPUSCULAR VOLUME 85.5 fL (73.0-96.2); MONOCYTES # (AUTO) 0.9 K/uL (2.0-10.0); MONOCYTES % (AUTO) 15.7 % (0.0-11.0); NEUTROPHILS # (AUTO) 3.6 K/uL (1.8-8.9); NEUTROPHILS % (AUTO) 63.9 % (38.5-71.5); PLATELET COUNT (AUTO) 302 K/uL (152-348); WHITE BLOOD COUNT (AUTO) 5.7 K/uL (3.6-10.2)
[2018-09-08 06:42] LABS: CARBON DIOXIDE 28 mmol/L (21-32); CHLORIDE 106 mmol/L (98-107); CREATININE 2.4 mg/dL (0.6-1.3); GLUCOSE 102 mg/dL (74-106); MAGNESIUM 2.2 mg/dL (1.8-2.4); PHOSPHOROUS 3.5 mg/dL (2.5-4.9); UREA NITROGEN, BLOOD 47 mg/dL (7-18)
[2018-09-08] MEDS: hydrALAZINE HCL 25 MG TABLET PO SCH ×3 (06:46→22:14)
[2018-09-08] MEDS: ISOSORBIDE DINITRATE 10 MG TABLET PO SCH ×3 (06:46→22:14)
[2018-09-08] MEDS: LEVOTHYROXINE SODIUM 25 MCG TABLET PO SCH (06:48)
[2018-09-08 07:07] LABS: POTASSIUM 2.7 mmol/L (3.5-5.1)
--- NOTE | 2018-09-08 07:28 | NUR ---
PATIENT KCL 2.7 NOTIFY MENDEZ HINKLE BAR HOST, AND ENDORSED TO NEXT SHIFT.
--- NOTE | 2018-09-08 07:45 | NUR ---
orders for k2.7 level, will give meds as ordered. patient awake, resting well. breakfast served, good appetite.
[2018-09-08] MEDS: predniSONE 5 MG TABLET PO SCH (08:13)
[2018-09-08] MEDS: PREGABALIN 25 MG CAPSULE PO SCH ×2 (08:14→17:30)
[2018-09-08] MEDS: MONTELUKAST SODIUM 10 MG TABLET PO SCH (08:14)
[2018-09-08] MEDS: GLIMEPIRIDE 2 MG TABLET PO SCH (08:14)
[2018-09-08] MEDS: LINAGLIPTIN 5 MG TABLET PO SCH (08:14)
[2018-09-08] MEDS: FUROSEMIDE 20 MG TABLET PO SCH ×2 (08:14→17:30)
[2018-09-08] MEDS: ASPIRIN 81 MG TAB.CHEW PO SCH (08:14)
[2018-09-08] MEDS: FERROUS SULFATE 325 MG TABEC PO SCH ×2 (08:14→17:30)
[2018-09-08] MEDS ORDERED: POTASSIUM CHLORIDE 10 MEQ TAB.PRT.SR PO ONE (08:15)
[2018-09-08] MEDS: APIXABAN 5 MG TABLET PO SCH ×2 (08:17→17:31)
[2018-09-08] MEDS: SPIRONOLACTONE 25 MG TABLET PO SCH (08:24)
[2018-09-08 08:31] LABS: EOSINOPHILS % (MANUAL) 2 % (0-8); LYMPHOCYTES % (MANUAL) 17 % (20-40); MONOCYTES % (MANUAL) 16 % (2-10); NEUTROPHILS % (MANUAL) 65 % (42-75)
--- NOTE | 2018-09-08 10:00 | NUR ---
son and at bedside , supportive of patient care. discussed plan of care, patient comfortable.
[2018-09-08 10:59] VITALS: BP 153/76
[2018-09-08 15:00] VITALS: BP 159/93
--- NOTE | 2018-09-08 16:22 | NUR ---
repositioned to right side with pillow support, sleeping comfortable. prn cough with mucoid , oral care prn.
--- NOTE | 2018-09-08 18:44 | NUR ---
no distress noted. on and off resting, appetite good. at bedside, supportive of patient care. Addendum: 09/08/18 at 1847 by TRANG REEDER RN no bleeding noted
--- NOTE | 2018-09-08 19:20 | NUR ---
RECEIVED PT AWAKE, ALERT AND ORIENTEDX3. PT SHOWS NO SIGNS OF ACUTE DISTRESS. IV INTACT. ISABEL CATHETER INTACT. SAFETY AND COMFORT PROVIDED. WILL CONTINUE TO MONITOR.
--- NOTE | 2018-09-08 19:55 | NUR ---
MENDEZ HINKLE AND TAXI INSTRUCTOR BUS TROLLEY ORDERED MILD RISS FOR THE PT.
[2018-09-08] MEDS ORDERED: DEXTROSE 50% 50 ML DISP.SYRIN IV PRN (20:15)
[2018-09-08] MEDS: ATORVASTATIN 10 MG TABLET PO SCH (20:30)
[2018-09-08] MEDS: TAMSULOSIN HCL 0.4 MG CAP.SR.24H PO SCH (20:30)
[2018-09-08] MEDS: BLOOD SUGAR DIAGNOSTIC 1 EACH STRIP VI SCH (20:31)
[2018-09-08] MEDS: INSULIN REGULAR, HUMAN 300 UNIT/3 ML VIAL SQ PRN (20:32)
[2018-09-08 22:18] VITALS: BP 166/91
[2018-09-09] VITALS (8 sets, daily range): BP systolic 132–166; BP diastolic 51–101
[2018-09-09] MEDS: hydrALAZINE HCL 20 MG/1 ML VIAL IV PRN ×2 (00:16→08:08)
--- NOTE | 2018-09-09 03:42 | NUR ---
AT 0038H CALLED AND SPOKE WITH DR. CHARLY DUNBAR REGARDING PT HAVING UNCONTROLLED AFIB RANGING FROM 130-160 FOR HALF AN HOUR. BLOOD PRESSURE IS HIGH 170/60. GAVE HYDRALAZINE. PT ASYMPTOMATIC. PER DR. DUNBAR CONTINUE TO OBSERVE PT AND HE WILL SEE PT IN AM.
[2018-09-09] MEDS: LEVOTHYROXINE SODIUM 25 MCG TABLET PO SCH (06:15)
[2018-09-09] MEDS: hydrALAZINE HCL 25 MG TABLET PO SCH ×3 (06:15→21:12)
[2018-09-09] MEDS: ISOSORBIDE DINITRATE 10 MG TABLET PO SCH ×3 (06:15→21:11)
--- NOTE | 2018-09-09 06:22 | NUR ---
PT SLEPT THROUGHOUT THE SHIFT. PT SHOWS NO SIGNS OF ACUTE DISTRESS. IV INTACT. ISABEL INTACT. PRESCRIBED MEDICATION GIVEN AND PT TOLERATED IT WELL. PT HAVE UNCONTROLLED AFIB. DR AWARE. CHARGE NURSE AWARE. PT IS AYMPTOMATIC. BLOOD SUGAR WERE 151 AND 110. SAFETY AND COMFORT PROVIDED. WILL ENDORSE ACCORDINGLY TO INCOMING NURSE FOR CONTINUITY OF CARE.
[2018-09-09] MEDS: BLOOD SUGAR DIAGNOSTIC 1 EACH STRIP VI SCH ×4 (06:32→20:47)
[2018-09-09 06:56] LABS: CARBON DIOXIDE 29 mmol/L (21-32); CHLORIDE 106 mmol/L (98-107); CREATININE 2.7 mg/dL (0.6-1.3); GLUCOSE 115 mg/dL (74-106); PHOSPHOROUS 3.3 mg/dL (2.5-4.9); POTASSIUM 3.1 mmol/L (3.5-5.1); UREA NITROGEN, BLOOD 39 mg/dL (7-18)
[2018-09-09 06:57] LABS: BASOPHILS % (AUTO) 0.4 % (0.0-2.0); EOSINOPHILS % (AUTO) 0.3 % (0.0-7.0); HEMATOCRIT 36.1 % (36.7-47.1); HEMOGLOBIN 11.8 g/dL (12.5-16.3); LYMPHOCYTES % (AUTO) 8.5 % (20.5-51.5); MEAN CORPUSCULAR HEMOGLOBIN 28.4 uug (23.8-33.4); MEAN CORPUSCULAR HGB CONC 33 g/dL (32.5-36.3); MEAN CORPUSCULAR VOLUME 86.6 fL (73.0-96.2); MONOCYTES # (AUTO) 1.7 K/uL (2.0-10.0); MONOCYTES % (AUTO) 14.6 % (0.0-11.0); NEUTROPHILS # (AUTO) 8.6 K/uL (1.8-8.9); NEUTROPHILS % (AUTO) 76.2 % (38.5-71.5); PLATELET COUNT (AUTO) 349 K/uL (152-348); RED BLOOD CELL COUNT(AUTO) 4.16 MIL/uL (4.06-5.63); WHITE BLOOD COUNT (AUTO) 11.3 K/uL (3.6-10.2)
--- NOTE | 2018-09-09 07:45 | NUR ---
on bed, sleeping comfortably. no distress noted.
--- NOTE | 2018-09-09 08:08 | NUR ---
patient hr 140-150. patient denies chest pain. bp check 166/101 . med as ordered. hr remain to range at 100- 117 at this time.
--- NOTE | 2018-09-09 08:20 | NUR ---
bp 142/67 hr ranging from ranging from 100-140. will monitor.
[2018-09-09] MEDS: LINAGLIPTIN 5 MG TABLET PO SCH (08:42)
[2018-09-09] MEDS: ASPIRIN 81 MG TAB.CHEW PO SCH (08:42)
[2018-09-09] MEDS: FERROUS SULFATE 325 MG TABEC PO SCH ×2 (08:43→16:27)
[2018-09-09] MEDS: SPIRONOLACTONE 25 MG TABLET PO SCH (08:43)
[2018-09-09] MEDS: predniSONE 5 MG TABLET PO SCH (08:43)
[2018-09-09] MEDS: GLIMEPIRIDE 2 MG TABLET PO SCH (08:43)
[2018-09-09] MEDS: MONTELUKAST SODIUM 10 MG TABLET PO SCH (08:43)
[2018-09-09] MEDS: FUROSEMIDE 20 MG TABLET PO SCH ×2 (08:43→16:28)
[2018-09-09] MEDS: PREGABALIN 25 MG CAPSULE PO SCH ×2 (08:43→16:28)
[2018-09-09] MEDS: APIXABAN 5 MG TABLET PO SCH ×2 (08:45→16:36)
--- NOTE | 2018-09-09 10:55 | NUR ---
spoke to raphael Howell uncontrolled afib. made order and carried out.
[2018-09-09] MEDS ORDERED: POTASSIUM CHLORIDE 20 MEQ TAB.PRT.SR PO ONE (11:00)
[2018-09-09] MEDS: DILTIAZEM HCL CD 120 MG CAP.SR.24H PO SCH (11:21)
[2018-09-09] MEDS: INSULIN REGULAR, HUMAN 300 UNIT/3 ML VIAL SQ PRN ×3 (11:26→20:45)
--- NOTE | 2018-09-09 12:00 | NUR ---
family at bedside , supportive of patient care. made aware change in status , back to cardizem cd for uncontrolled afib, supplement med kcl for low serum k+. verbalized understanding with son, discussing with patient and his .
--- NOTE | 2018-09-09 14:27 | NUR ---
patient on bed, seemed tired. rest in between activity. appetite poor today. at bedside, helpful to patient.
--- NOTE | 2018-09-09 16:00 | NUR ---
resting well. family at bedside, supportive of patient care. no respiratory or cardiac distress noted. hr 120's sustained.
--- NOTE | 2018-09-09 18:54 | NUR ---
patient refused lunch and dinner, taking fluids liberally. bp stable, hr remains 100-120
--- NOTE | 2018-09-09 19:20 | NUR ---
RECEIVED PT AWAKE, ALERT AND ORIENTEDX3. FAMILY AT BEDSIDE. PT SHOWS NO ACUTE DISTRESS. IV INTACT. ISABEL INTACT.SAFETY AND COMFORT PROVIDED. WILL CONTINUE TO MONITOR.
[2018-09-09] MEDS: TAMSULOSIN HCL 0.4 MG CAP.SR.24H PO SCH (20:45)
[2018-09-09] MEDS: ATORVASTATIN 10 MG TABLET PO SCH (20:46)
[2018-09-09] MEDS: CARVEDILOL 6.25 MG TABLET PO SCH (21:23)
--- NOTE | 2018-09-09 21:30 | NUR ---
HANDS OFF REPORT TO SHASHI. DR DUNBAR SEEN THE PT AND FAMILY. PT STABLE AND IN NO ACUTE DISTRESS. IV INTACT. ISABEL INTACT. SAFETY AND COMFORT PROVIDED. ENDORSE TO SHASHI FOR CONTINUITY OF CARE.
--- NOTE | 2018-09-09 21:45 | NUR ---
RECEIVED PT AWAKE, ALERT. PT SHOWS NO ACUTE DISTRESS. IV INTACT. ISABEL INTACT, IV IS PATENT AND INTACT.SAFETY AND COMFORT PROVIDED. PRODUCTIVE COUGH NOTED. WILL CONTINUE TO MONITOR.
[2018-09-10] VITALS: BP 143/85
[2018-09-10 04:00] VITALS: BP 126/87
[2018-09-10] MEDS: LEVOTHYROXINE SODIUM 25 MCG TABLET PO SCH (06:28)
[2018-09-10] MEDS: ISOSORBIDE DINITRATE 10 MG TABLET PO SCH ×3 (06:32→21:00)
[2018-09-10] MEDS: hydrALAZINE HCL 25 MG TABLET PO SCH ×3 (06:32→21:01)
[2018-09-10] MEDS: BLOOD SUGAR DIAGNOSTIC 1 EACH STRIP VI SCH ×4 (06:42→21:01)
--- NOTE | 2018-09-10 07:30 | NUR ---
Awake, alert, oriented x 3, Bahamian speaking. Denies pain at this. O2 at 2L/NC with O2 sat of 97%. not in distress.
[2018-09-10 07:39] LABS: BASOPHILS % (AUTO) 0.2 % (0.0-2.0); HEMATOCRIT 34.4 % (36.7-47.1); HEMOGLOBIN 11.4 g/dL (12.5-16.3); LYMPHOCYTES # (AUTO) 0.8 K/uL (20.0-40.0); LYMPHOCYTES % (AUTO) 4.8 % (20.5-51.5); MEAN CORPUSCULAR HEMOGLOBIN 28.6 uug (23.8-33.4); MEAN CORPUSCULAR HGB CONC 33 g/dL (32.5-36.3); MEAN CORPUSCULAR VOLUME 86.2 fL (73.0-96.2); MONOCYTES # (AUTO) 1.4 K/uL (2.0-10.0); MONOCYTES % (AUTO) 8.4 % (0.0-11.0); NEUTROPHILS # (AUTO) 14.2 K/uL (1.8-8.9); NEUTROPHILS % (AUTO) 86.6 % (38.5-71.5); PLATELET COUNT (AUTO) 345 K/uL (152-348); RED BLOOD CELL COUNT(AUTO) 3.99 MIL/uL (4.06-5.63); WHITE BLOOD COUNT (AUTO) 16.4 K/uL (3.6-10.2)
--- NOTE | 2018-09-10 07:43 | NUR ---
REPORT GIVEN TO THE DAY SHIFT RN YADIRA. PATIENT SLEPT INTERMITTENTLY AT NIGHT, NO ACUTE DISTRESS NOTED. COMFORT AND SAFETY MEASURES ARE IN PLACE.
[2018-09-10 07:44] LABS: CARBON DIOXIDE 30 mmol/L (21-32); CHLORIDE 108 mmol/L (98-107); CREATININE 2.7 mg/dL (0.6-1.3); GLUCOSE 230 mg/dL (74-106); MAGNESIUM 2.1 mg/dL (1.8-2.4); PHOSPHOROUS 3.4 mg/dL (2.5-4.9); POTASSIUM 3.7 mmol/L (3.5-5.1); UREA NITROGEN, BLOOD 43 mg/dL (7-18)
[2018-09-10 08:00] VITALS: BP 137/77
[2018-09-10] MEDS: GLIMEPIRIDE 2 MG TABLET PO SCH (09:10)
[2018-09-10] MEDS: ASPIRIN 81 MG TAB.CHEW PO SCH (09:11)
[2018-09-10] MEDS: SPIRONOLACTONE 25 MG TABLET PO SCH (09:11)
[2018-09-10] MEDS: CARVEDILOL 6.25 MG TABLET PO SCH ×2 (09:11→18:04)
[2018-09-10] MEDS: FERROUS SULFATE 325 MG TABEC PO SCH ×2 (09:12→18:02)
[2018-09-10] MEDS: DILTIAZEM HCL CD 120 MG CAP.SR.24H PO SCH (09:12)
[2018-09-10] MEDS: FUROSEMIDE 20 MG TABLET PO SCH ×2 (09:13→18:02)
[2018-09-10] MEDS: PREGABALIN 25 MG CAPSULE PO SCH ×2 (09:13→18:03)
[2018-09-10] MEDS: LINAGLIPTIN 5 MG TABLET PO SCH (09:13)
[2018-09-10] MEDS: MONTELUKAST SODIUM 10 MG TABLET PO SCH (09:13)
[2018-09-10] MEDS: APIXABAN 5 MG TABLET PO SCH ×2 (09:15→18:01)
[2018-09-10] MEDS: INSULIN REGULAR, HUMAN 300 UNIT/3 ML VIAL SQ PRN ×4 (09:16→21:21)
[2018-09-10 12:05] VITALS: BP 104/65
--- NOTE | 2018-09-10 13:55 | NUR ---
WOUND CARE CONSULT: PT PRESENTS WITH LEFT HEEL INTACT DEEP TISSUE INJURY WITH CALLUS AND RT TOES DISTAL ESCHARS, PRESENT ON ADMISSION. SACRAL/BUTTOCKS SKIN STAINING NOTED. RECOMMENDATIONS MADE FOR SKIN PROTECTION. DISCUSSED WITH NURSING STAFF. DR BONILLA AWARE OF DPM CONSULT REQUEST. WILL SEE PRN. CURRENT SULTANA SCORE US 19. MD IN AGREEMENT WITH PLAN OF CARE. Addendum: 09/10/18 at 1357 by MARY BLISS RN Amended: Links added.
[2018-09-10 15:39] VITALS: BP 107/59
[2018-09-10] MEDS ORDERED: AZITHROMYCIN IV 500 MG in IV DEXTROSE 5% 250 ML IV SCH (16:00)
--- NOTE | 2018-09-10 16:00 | NUR ---
Seen by BRAYAN and Dr. Silva with orders for wound care carried out. Bilateral heels floated over pillow
[2018-09-10] MEDS ORDERED: CEFEPIME HCL 1 G in IV DEXTROSE 5% 50 ML IV SCH (18:00)
[2018-09-10 18:10] LABS: *BILIRUBIN,URIN NEGATIVE (NEGATIVE); *BLOOD, URINE 3+ (NEGATIVE); *CLARITY,URINE SLIGHTLY CLOUDY (CLEAR); *COLOR,URINE YELLOW (YELLOW); *KETONES,URINE NEGATIVE (NEGATIVE); *UROBILINOGEN,URINE 0.2 E.U./dl (NORMAL); LEUKOCYTE ESTERASE ,URINE NEGATIVE (NEGATIVE); NITRITE, URINE NEGATIVE (NEGATIVE); PH,URINE 5.5 (5.0-8.0); UGLUCOSE NEGATIVE (NEGATIVE)
[2018-09-10 18:51] LABS: RBC,URINE 80-100 /HPF (0-3)
[2018-09-10 18:52] LABS: BACTERIA,URINE FEW /HPF (NONE SEEN); SQUAMOUS EPITHELIAL CELL,UR FEW /HPF (NONE SEEN); WBC,URINE 0-3 /HPF (0-3)
--- NOTE | 2018-09-10 19:03 | NUR ---
On moderate high back rest. O2 at 2L/NC, not in distress, afebrile.
[2018-09-10 19:25] VITALS: BP 103/50
--- NOTE | 2018-09-10 19:40 | NUR ---
Received patient awake and alert with family at bedside. No signs of acute distress. No complaints of pain or SOB. Heplock on the left forearm is intact and patent. Gonzalez catheter is intact and draining juancho colored urine. Safety measures initiated, bed is low and locked, call light within reach. will continue to monitor.
[2018-09-10] MEDS: TAMSULOSIN HCL 0.4 MG CAP.SR.24H PO SCH (21:00)
[2018-09-10] MEDS: ATORVASTATIN 10 MG TABLET PO SCH (21:00)
[2018-09-10] MEDS ORDERED: CEFEPIME HCL 2 G in IV DEXTROSE 5% 100 ML IV SCH (22:00)
[2018-09-11 03:17] VITALS: BP 137/83
[2018-09-11] MEDS: ISOSORBIDE DINITRATE 10 MG TABLET PO SCH ×2 (05:37→14:48)
[2018-09-11] MEDS: hydrALAZINE HCL 25 MG TABLET PO SCH ×2 (05:37→14:47)
--- NOTE | 2018-09-11 06:22 | NUR ---
patient slept well throughout shift, no signs of acute distress noted. no signs of pain or SOB. all medications given as ordered except last night hydralazine order due to decreased BP. Gonzalez catheter intact and drained 375cc. Safety measures given
[2018-09-11] MEDS: LEVOTHYROXINE SODIUM 25 MCG TABLET PO SCH (06:28)
[2018-09-11] MEDS: BLOOD SUGAR DIAGNOSTIC 1 EACH STRIP VI SCH ×2 (06:33→12:12)
[2018-09-11 07:07] LABS: BASOPHILS # (AUTO) 0.1 K/uL (0.0-8.0); BASOPHILS % (AUTO) 0.6 % (0.0-2.0); EOSINOPHILS # (AUTO) 0.1 K/uL (0.0-0.7); EOSINOPHILS % (AUTO) 0.9 % (0.0-7.0); HEMATOCRIT 33.1 % (36.7-47.1); HEMOGLOBIN 10.9 g/dL (12.5-16.3); LYMPHOCYTES # (AUTO) 1.5 K/uL (20.0-40.0); LYMPHOCYTES % (AUTO) 14.1 % (20.5-51.5); MEAN CORPUSCULAR HEMOGLOBIN 28.6 uug (23.8-33.4); MEAN CORPUSCULAR HGB CONC 33 g/dL (32.5-36.3); MEAN CORPUSCULAR VOLUME 86.8 fL (73.0-96.2); MONOCYTES # (AUTO) 1.2 K/uL (2.0-10.0); MONOCYTES % (AUTO) 11.3 % (0.0-11.0); NEUTROPHILS # (AUTO) 7.6 K/uL (1.8-8.9); NEUTROPHILS % (AUTO) 73.1 % (38.5-71.5); PLATELET COUNT (AUTO) 325 K/uL (152-348); RED BLOOD CELL COUNT(AUTO) 3.82 MIL/uL (4.06-5.63); WHITE BLOOD COUNT (AUTO) 10.4 K/uL (3.6-10.2)
[2018-09-11 07:33] LABS: CARBON DIOXIDE 30 mmol/L (21-32); CHLORIDE 108 mmol/L (98-107); GLUCOSE 146 mg/dL (74-106); MAGNESIUM 2.2 mg/dL (1.8-2.4); POTASSIUM 3.6 mmol/L (3.5-5.1); UREA NITROGEN, BLOOD 52 mg/dL (7-18)
[2018-09-11 08:00] VITALS: BP 124/99
[2018-09-11] MEDS: INSULIN REGULAR, HUMAN 300 UNIT/3 ML VIAL SQ PRN ×2 (08:46→12:33)
[2018-09-11] MEDS: PREGABALIN 25 MG CAPSULE PO SCH (08:47)
[2018-09-11] MEDS: FERROUS SULFATE 325 MG TABEC PO SCH (08:47)
[2018-09-11] MEDS: GLIMEPIRIDE 2 MG TABLET PO SCH (08:47)
[2018-09-11] MEDS: MONTELUKAST SODIUM 10 MG TABLET PO SCH (08:47)
[2018-09-11] MEDS: LINAGLIPTIN 5 MG TABLET PO SCH (08:47)
[2018-09-11] MEDS: CARVEDILOL 6.25 MG TABLET PO SCH (08:48)
[2018-09-11] MEDS: DILTIAZEM HCL CD 120 MG CAP.SR.24H PO SCH (08:48)
[2018-09-11] MEDS: ASPIRIN 81 MG TAB.CHEW PO SCH (08:48)
[2018-09-11] MEDS: FUROSEMIDE 20 MG TABLET PO SCH (08:48)
[2018-09-11] MEDS: SPIRONOLACTONE 25 MG TABLET PO SCH (08:48)
[2018-09-11] MEDS: APIXABAN 5 MG TABLET PO SCH (08:50)
[2018-09-11 11:47] VITALS: BP 107/62
[2018-09-11] MEDS ORDERED: CARV6.252 PO (13:14)
[2018-09-11] MEDS ORDERED: HYDR25TA86 PO (13:14)
[2018-09-11] MEDS ORDERED: SPIR25TA PO (13:14)
[2018-09-11] MEDS ORDERED: LEVO25TA9 PO (13:14)
[2018-09-11] MEDS ORDERED: ISOS10TA2 PO (13:14)
[2018-09-11] MEDS ORDERED: FURO20TA4 PO (13:14)
[2018-09-11 14:39] VITALS: BP 119/63
[2018-09-11 14:48] VITALS: BP 119/63
--- NOTE | 2018-09-11 16:02 | NUR ---
Gonzalez cath removed at 1430, assisted pt to void, in toilet at this time. will cont to monitor.
--- NOTE | 2018-09-11 16:50 | NUR ---
Discharge instructions given regarding medications, activities, diet and follow up appointments, HL removed. Heart failure and medications discussed in great detail with son and . Pt voided prior to being discharged. Room air saturation 97-98%. No noted SOB on ambulation on RA. encouraged for questions, none raised.
--- NOTE | 2018-09-11 18:22 | NUR ---
Pt's son came back stating no meds in their pharmacy of choice. Notified charge nurse, GEORGES Michelle and spoke with Sagrario Jackson NP and medications verified and called in to pt's pharmacy.
== END 2018-09-11 16:50 | disposition home health service (06) | DRG 280 ==
LOC: ER 12:18 → CCU 14:51 → TELE3 09-07 12:15 → MEDSURG3 09-10 14:30
PROVIDERS: ADMIT Nurse Practitioner Acute Care; ATTEND Nurse Practitioner Acute Care
DX: I13.0 Hypertensive heart and chronic kidney disease with heart failure and stage 1 through stage 4 chronic kidney disease, or unspecified chronic kidney disease (principal); I21.A1 Myocardial infarction type 2; I50.23 Acute on chronic systolic (congestive) heart failure; E44.1 Mild protein-calorie malnutrition; D68.59 Other primary thrombophilia; N18.4 Chronic kidney disease, stage 4 (severe); L97.518 Non-pressure chronic ulcer of other part of right foot with other specified severity; N18.9 Chronic kidney disease, unspecified; I48.2 Chronic atrial fibrillation; E11.22 Type 2 diabetes mellitus with diabetic chronic kidney disease; K21.9 Gastro-esophageal reflux disease without esophagitis; E87.6 Hypokalemia; E11.65 Type 2 diabetes mellitus with hyperglycemia; D63.8 Anemia in other chronic diseases classified elsewhere; E11.621 Type 2 diabetes mellitus with foot ulcer; L89.620 Pressure ulcer of left heel, unstageable; L89.890 Pressure ulcer of other site, unstageable; J44.9 Chronic obstructive pulmonary disease, unspecified; K56.41 Fecal impaction; I25.5 Ischemic cardiomyopathy; N28.9 Disorder of kidney and ureter, unspecified; K86.9 Disease of pancreas, unspecified; N40.0 Benign prostatic hyperplasia without lower urinary tract symptoms; Z79.51 Long term (current) use of inhaled steroids; Z79.4 Long term (current) use of insulin; Z79.01 Long term (current) use of anticoagulants; I70.0 Atherosclerosis of aorta; E78.5 Hyperlipidemia, unspecified; E03.9 Hypothyroidism, unspecified; R00.1 Bradycardia, unspecified; T46.1X5A Adverse effect of calcium-channel blockers, initial encounter; T46.2X5A Adverse effect of other antidysrhythmic drugs, initial encounter; Y92.039 Unspecified place in apartment as the place of occurrence of the external cause; F41.9 Anxiety disorder, unspecified; D72.829 Elevated white blood cell count, unspecified
CPT/HCPCS: 36415; 70030-TC; 71045; 74018; 82533; 83735; 84100; 84443; 85025; 85730; 93005; 97116; 97530; A4663; G0378; J0360; J0456; J0461; J0692; J1815; J1940; J7050; J7060; J7512

== ENCOUNTER 2018-12-11 10:57 | Inpatient (IN) | payer MEDICARE, MEDICAID ==
[~2018-12-11] VITALS: Ht 165.1 cm; Wt 72.4 kg
[~2018-12-11 10:57] MED LIST changes: -AMIO100T4 PO; -AMOX-427 PO; +CARV6.252 PO; -DOXY100C2 PO; +FURO20TA4 PO; +HYDR25TA86 PO; -IPRA0.2S6 NEB; +ISOS10TA2 PO; +LEVO25TA9 PO; -POLY17PO4 PO; +SPIR25TA PO; -TRAM50TA2 PO
--- NOTE | 2018-12-11 11:20 | NUR ---
at bedside to examine patient. Pt's and son at bedside.
[2018-12-11 11:35] LABS: BASOPHILS % (AUTO) 0.6 % (0.0-2.0); EOSINOPHILS # (AUTO) 0.1 K/uL (0.0-0.7); HEMATOCRIT 28.5 % (36.7-47.1); HEMOGLOBIN 9.7 g/dL (12.5-16.3); LYMPHOCYTES # (AUTO) 0.9 K/uL (20.0-40.0); LYMPHOCYTES % (AUTO) 13.2 % (20.5-51.5); MEAN CORPUSCULAR HGB CONC 34 g/dL (32.5-36.3); MEAN CORPUSCULAR VOLUME 85.4 fL (73.0-96.2); MONOCYTES # (AUTO) 0.6 K/uL (2.0-10.0); MONOCYTES % (AUTO) 8.7 % (0.0-11.0); NEUTROPHILS # (AUTO) 5.1 K/uL (1.8-8.9); NEUTROPHILS % (AUTO) 75.5 % (38.5-71.5); PLATELET COUNT (AUTO) 173 K/uL (152-348); RED BLOOD CELL COUNT(AUTO) 3.34 MIL/uL (4.06-5.63); WHITE BLOOD COUNT (AUTO) 6.8 K/uL (3.6-10.2)
[2018-12-11] MEDS ORDERED: POTA10TA15 PO (11:38)
[2018-12-11] MEDS ORDERED: BUME2TAB7 PO (11:38)
[2018-12-11] MEDS ORDERED: RANO500T3 PO (11:38)
[2018-12-11] MEDS ORDERED: APIX2.5T PO (11:38)
[2018-12-11] MEDS ORDERED: ISOS20TA8 PO (11:38)
[2018-12-11] MEDS ORDERED: AMIO200T4 PO (11:38)
[2018-12-11] MEDS ORDERED: BUME1TAB8 PO (11:38)
[2018-12-11] MEDS ORDERED: CARV25TA2 PO (11:38)
[2018-12-11] MEDS ORDERED: DUTA0.5C PO (11:38)
[2018-12-11] MEDS ORDERED: NITROGLYCERIN OINT 1 GM PACKET TP ONE ×2 (11:45→11:46)
[2018-12-11] MEDS ORDERED: FUROSEMIDE 20 MG/2 ML VIAL IV ONE (11:45)
[2018-12-11] MEDS ORDERED: FUROSEMIDE 40 MG/4 ML VIAL ONE (11:47)
[2018-12-11 11:49] LABS: CARBON DIOXIDE 26 mmol/L (21-32); CHLORIDE 107 mmol/L (98-107); CREATININE 2.8 mg/dL (0.6-1.3); GLUCOSE 186 mg/dL (74-106); POTASSIUM 3.1 mmol/L (3.5-5.1); UREA NITROGEN, BLOOD 57 mg/dL (7-18)
[2018-12-11 12:02] LABS: ALANINE AMINOTRANSFERASE 13 U/L (16-63); ALKALINE PHOSPHATASE 54 U/L (50-136); ASPARTATE AMINOTRANSFERASE 7 U/L (15-37); BILIRUBIN,DIRECT 0.2 mg/dL (0.0-0.2); BILIRUBIN,TOTAL 0.7 mg/dL (0.2-1.0)
--- NOTE | 2018-12-11 12:35 | NUR ---
HR of 91, 153/94. saturation of 98% on RA. fam. at bedside/ telephone report given to Kinjal Garcia pt. will taken via wheelchair. Addendum: 12/11/18 at 1237 by Magoosh MRSa collected and sent to lab as ordered.
--- NOTE | 2018-12-11 12:57 | NUR ---
Patient taken up to room 309 nurse Radha at bedside.
--- NOTE | 2018-12-11 13:00 | NUR ---
RECEIVED PATIENT FROM ER. RECEIVED REPORT FROM FREDY SU. PATIENT BROUGHT UP VIA WHEELCHAIR. PATIENT IN MINOR DISTRESS, PATIENT STATED SOB, VITALS SIGNS TAKEN O2 SAT AT 100% ON ROOM AIR. BED IN LOWEST POSITION, CALL LIGHT WITHIN REACH, SIDE RIALS UP X2. AT BEDSIDE. WILL CONTINUE TO MONITOR.
[2018-12-11 13:11] VITALS: BP 147/99
[2018-12-11] MEDS ORDERED: NITROGLYCERIN 0.4 MG/TAB BOTTLE SL PRN (14:30)
[2018-12-11] MEDS ORDERED: POTASSIUM CHLORIDE 20 MEQ TAB.PRT.SR PO ONE (14:45)
[2018-12-11 15:34] VITALS: BP 142/89
[2018-12-11] MEDS ORDERED: Medication Not On Formulary EA (Apixaban (Eliquis) 2.5 MG) PO SCH (17:00)
[2018-12-11] MEDS: CARVEDILOL 25 MG TABLET PO SCH (17:55)
[2018-12-11] MEDS: FERROUS SULFATE 325 MG TABEC PO SCH (17:56)
[2018-12-11] MEDS: APIXABAN 2.5 MG PO SCH (17:57)
[2018-12-11] MEDS: ISOSORBIDE DINITRATE 20 MG TABLET PO SCH (17:57)
[2018-12-11] MEDS: RANOLAZINE 500 MG TAB.ER.12H PO SCH (17:57)
--- NOTE | 2018-12-11 18:19 | NUR ---
PATIENT RESTED IN BED. PATIENT DENIES SOB. NO DISTRESS NOTED. PATIENT AT BEDSIDE.
--- NOTE | 2018-12-11 19:20 | NUR ---
RECEIVED PT AWAKE. ALERT AND ORIENTEDX3. PT SHOWS NO SIGNS OF ACUTE DISTRESS. IV INTACT. FAMILY AT BEDSIDE. SAFETY AND COMFORT PROVIDED. WILL CONTINUE TO MONITOR.
[2018-12-11 19:32] LABS: *BILIRUBIN,URIN NEGATIVE (NEGATIVE); *BLOOD, URINE 2+ (NEGATIVE); *COLOR,URINE YELLOW (YELLOW); *KETONES,URINE NEGATIVE (NEGATIVE); *UROBILINOGEN,URINE 0.2 E.U./dl (NORMAL); LEUKOCYTE ESTERASE ,URINE TRACE (NEGATIVE); NITRITE, URINE NEGATIVE (NEGATIVE); PH,URINE 6.5 (5.0-8.0); UGLUCOSE NEGATIVE (NEGATIVE)
[2018-12-11 20:04] VITALS: BP 148/89
[2018-12-11] MEDS: ATORVASTATIN 40 MG TABLET PO SCH (20:25)
[2018-12-11 20:29] LABS: *CLARITY,URINE HAZY (CLEAR)
[2018-12-11 20:31] LABS: RBC,URINE 50-80 /HPF (0-3)
[2018-12-11 20:32] LABS: MUCUS,URINE FEW /LPF (0-FEW)
[2018-12-11] MEDS: INSULIN GLARGINE,HUM 300 UNITS/3 ML CARTRIDGE SQ SCH (20:34)
[2018-12-11] MEDS ORDERED: POTASSIUM CHLORIDE 20 MEQ POWDER PACKET PO ONE (21:15)
[2018-12-11] MEDS ORDERED: BUMETANIDE 1 MG/4 ML VIAL IV ONE (21:15)
[2018-12-12 00:29] VITALS: BP 102/72
[2018-12-12 04:00] VITALS: BP 139/91
[2018-12-12] MEDS: LEVOTHYROXINE SODIUM 25 MCG TABLET PO SCH (06:01)
--- NOTE | 2018-12-12 06:23 | NUR ---
PT SLEPT THROUGHOUT THE SHIFT. PT SHOWS NO SIGNS OF ACUTE DISTRESS. IV INTACT. PRESCRIBED MEDICATION GIVEN AND PT TOLERATED IT WELL. SAFETY AND COMFORT PROVIDED. ALL NEEDS ARE MET. WILL ENDORSE ACCORDINGLY TO INCOMING NURSE FOR CONTINUITY OF CARE.
[2018-12-12 06:30] LABS: BASOPHILS % (AUTO) 0.7 % (0.0-2.0); EOSINOPHILS # (AUTO) 0.2 K/uL (0.0-0.7); EOSINOPHILS % (AUTO) 2.9 % (0.0-7.0); HEMATOCRIT 33.9 % (36.7-47.1); HEMOGLOBIN 11.4 g/dL (12.5-16.3); LYMPHOCYTES % (AUTO) 14.2 % (20.5-51.5); MEAN CORPUSCULAR HEMOGLOBIN 28.6 uug (23.8-33.4); MEAN CORPUSCULAR HGB CONC 34 g/dL (32.5-36.3); MEAN CORPUSCULAR VOLUME 84.8 fL (73.0-96.2); MONOCYTES # (AUTO) 0.6 K/uL (2.0-10.0); MONOCYTES % (AUTO) 7.8 % (0.0-11.0); NEUTROPHILS # (AUTO) 5.3 K/uL (1.8-8.9); NEUTROPHILS % (AUTO) 74.4 % (38.5-71.5); PLATELET COUNT (AUTO) 211 K/uL (152-348); WHITE BLOOD COUNT (AUTO) 7.2 K/uL (3.6-10.2)
[2018-12-12 06:49] LABS: CARBON DIOXIDE 25 mmol/L (21-32); CHLORIDE 104 mmol/L (98-107); CHOLESTEROL 133 mg/dL (<200); CREATININE 3.3 mg/dL (0.6-1.3); GLUCOSE 64 mg/dL (74-106); HDL CHOLESTEROL 60 mg/dL (40-60); MAGNESIUM 2.3 mg/dL (1.8-2.4); PHOSPHOROUS 4.9 mg/dL (2.5-4.9); POTASSIUM 3.9 mmol/L (3.5-5.1); TRIGLYCERIDES 43 MG/DL (30-150); UREA NITROGEN, BLOOD 62 mg/dL (7-18)
--- NOTE | 2018-12-12 06:50 | NUR ---
Did an accucheck on the pt. Got 58 blood sugar level gave orange juice with sugar. after an hour blood sugar is 68. pt asymptomatic. pt in no acute distress. will endorse accordingly to incoming nurse.
[2018-12-12 06:59] LABS: THYROID STIMULATING HORMONE 18.156 mIU/mL (0.358-3.740)
--- NOTE | 2018-12-12 07:45 | NUR ---
RECEIVED PT AWAKE. ALERT AND ORIENTEDX3. PT SHOWS NO SIGNS OF ACUTE DISTRESS OR SOB. IV INTACT. SAFETY AND COMFORT PROVIDED. CALL LIFGT WITHIN REACH. WILL CONTINUE TO MONITOR.
[2018-12-12] MEDS: APIXABAN 2.5 MG PO SCH ×2 (08:45→17:16)
[2018-12-12] MEDS: LINAGLIPTIN 5 MG TABLET PO SCH (08:45)
[2018-12-12] MEDS: BUMETANIDE 1 MG TABLET PO SCH ×2 (08:46→16:43)
[2018-12-12] MEDS: AMIODARONE HCL 200 MG TABLET PO SCH (08:47)
[2018-12-12] MEDS: DUTASTERIDE 0.5 MG CAPSULE PO SCH (08:48)
[2018-12-12] MEDS: FERROUS SULFATE 325 MG TABEC PO SCH ×2 (08:48→16:47)
[2018-12-12] MEDS: POTASSIUM CHLORIDE 10 MEQ TAB.PRT.SR PO SCH (08:49)
[2018-12-12] MEDS: RANOLAZINE 500 MG TAB.ER.12H PO SCH ×2 (08:50→16:42)
[2018-12-12] MEDS: ASPIRIN 81 MG TAB.CHEW PO SCH (08:50)
[2018-12-12] MEDS: ISOSORBIDE DINITRATE 20 MG TABLET PO SCH ×3 (08:58→16:47)
[2018-12-12] MEDS: CARVEDILOL 25 MG TABLET PO SCH ×2 (08:58→17:15)
[2018-12-12] MEDS ORDERED: Medication Not On Formulary EA (Rosuvastatin Calcium (Crestor) 1 TAB) PO SCH (09:00)
[2018-12-12] MEDS ORDERED: Medication Not On Formulary EA (Sitagliptin Phosphate (Januvia) 50 MG) PO SCH (09:00)
[2018-12-12] MEDS ORDERED: BUMETANIDE 1 MG/4 ML VIAL IV SCH (09:00)
[2018-12-12] MEDS ORDERED: ASPIRIN 325 MG TABLET PO SCH (09:00)
[2018-12-12] MEDS ORDERED: Medication Not On Formulary EA (Potassium Chloride 1 TAB) PO SCH (09:00)
[2018-12-12 11:16] VITALS: BP 114/82
[2018-12-12] MEDS ORDERED: INSULIN REGULAR, HUMAN 300 UNIT/3 ML VIAL SQ PRN (12:15)
[2018-12-12] MEDS ORDERED: DEXTROSE 50% 50 ML DISP.SYRIN IV PRN (12:15)
[2018-12-12 15:12] VITALS: BP 113/80
[2018-12-12] MEDS: BLOOD SUGAR DIAGNOSTIC 1 EACH STRIP VI SCH ×2 (16:41→21:10)
[2018-12-12] MEDS: CEphaleXIN 500 MG CAPSULE PO SCH (16:47)
--- NOTE | 2018-12-12 18:00 | NUR ---
PT RESTING COMFORTABLY IN BED. ABD US DONE. PT IS MEDICATION COMPLIANT. NO SOB OR ACUTE DISTRESS NOTED. CALL LIGHT WITHIN REACH. WILL GIVE REPORT TO INCOMING SHIFT NURSE ACCORDINGLY.
--- NOTE | 2018-12-12 19:25 | NUR ---
RECEIVED PT AWAKE, ALERT AND ORIENTEDX4. FAMILY AT BEDSIDE. PT SHOWS NO SIGNS OF ACUTE DISTRESS. IV INTACT. SAFETY AND COMFORT PROVIDED. WILL CONTINUE TO MONITOR.
[2018-12-12 20:16] VITALS: BP_SYST 112; BP_SYST 143; BP_DIAS 61; BP_DIAS 69
[2018-12-12] MEDS: ATORVASTATIN 40 MG TABLET PO SCH (21:00)
[2018-12-12] MEDS: INSULIN GLARGINE,HUM 300 UNITS/3 ML CARTRIDGE SQ SCH (21:12)
[2018-12-13] VITALS: BP 115/72
[2018-12-13 04:00] VITALS: BP 120/62
[2018-12-13] MEDS: LEVOTHYROXINE SODIUM 25 MCG TABLET PO SCH (06:01)
--- NOTE | 2018-12-13 06:12 | NUR ---
PT SLEPT THROUGHOUT THE SHIFT. PT SHOWS NO SIGNS OF ACUTE DISTRESS.PRESCRIBED MEDICATION GIVEN AND PT TOLERATED IT WELL. IV INTACT. SAFETY AND COMFORT PROVIDED. WILL CONTINUE TO ENDORSE TO INCOMING NURSE FOR CONTINUITY OF CARE.
[2018-12-13] MEDS: BLOOD SUGAR DIAGNOSTIC 1 EACH STRIP VI SCH ×3 (06:31→17:24)
[2018-12-13 06:49] LABS: BASOPHILS # (AUTO) 0.1 K/uL (0.0-8.0); BASOPHILS % (AUTO) 0.7 % (0.0-2.0); EOSINOPHILS # (AUTO) 0.3 K/uL (0.0-0.7); MONOCYTES # (AUTO) 0.6 K/uL (2.0-10.0)
[2018-12-13 06:53] LABS: CARBON DIOXIDE 27 mmol/L (21-32); CHLORIDE 103 mmol/L (98-107); CREATININE 3.1 mg/dL (0.6-1.3); GLUCOSE 88 mg/dL (74-106); MAGNESIUM 2.2 mg/dL (1.8-2.4); PHOSPHOROUS 5.5 mg/dL (2.5-4.9); POTASSIUM 3.4 mmol/L (3.5-5.1); UREA NITROGEN, BLOOD 66 mg/dL (7-18)
[2018-12-13 06:59] LABS: EOSINOPHILS % (AUTO) 3.6 % (0.0-7.0); LYMPHOCYTES % (AUTO) 14.5 % (20.5-51.5); MEAN CORPUSCULAR HEMOGLOBIN 29.1 uug (23.8-33.4); MEAN CORPUSCULAR HGB CONC 34 g/dL (32.5-36.3); MEAN CORPUSCULAR VOLUME 85.9 fL (73.0-96.2); MONOCYTES % (AUTO) 9.1 % (0.0-11.0); NEUTROPHILS % (AUTO) 72.1 % (38.5-71.5); PLATELET COUNT (AUTO) 181 K/uL (152-348); RED BLOOD CELL COUNT(AUTO) 3.54 MIL/uL (4.06-5.63)
[2018-12-13 07:00] LABS: HEMATOCRIT 30.4 % (36.7-47.1); HEMOGLOBIN 10.3 g/dL (12.5-16.3)
--- NOTE | 2018-12-13 07:30 | NUR ---
Awake, alert, oriented x 3, pleasant, on moderate high back rest, comfortable, not in distress. Tele Afib
[2018-12-13] MEDS: ASPIRIN 81 MG TAB.CHEW PO SCH (09:38)
[2018-12-13] MEDS: CARVEDILOL 25 MG TABLET PO SCH ×2 (09:38→17:27)
[2018-12-13] MEDS: BUMETANIDE 1 MG TABLET PO SCH ×2 (09:38→17:24)
[2018-12-13] MEDS: DUTASTERIDE 0.5 MG CAPSULE PO SCH (09:38)
[2018-12-13] MEDS: FERROUS SULFATE 325 MG TABEC PO SCH ×2 (09:39→17:25)
[2018-12-13] MEDS: RANOLAZINE 500 MG TAB.ER.12H PO SCH ×2 (09:39→17:26)
[2018-12-13] MEDS: AMIODARONE HCL 200 MG TABLET PO SCH (09:39)
[2018-12-13] MEDS: ISOSORBIDE DINITRATE 20 MG TABLET PO SCH ×3 (09:39→17:26)
[2018-12-13] MEDS: CEphaleXIN 500 MG CAPSULE PO SCH ×2 (09:39→17:26)
[2018-12-13] MEDS: POTASSIUM CHLORIDE 10 MEQ TAB.PRT.SR PO SCH (09:39)
[2018-12-13] MEDS: LINAGLIPTIN 5 MG TABLET PO SCH (09:40)
[2018-12-13] MEDS: APIXABAN 2.5 MG PO SCH ×2 (09:41→17:25)
--- NOTE | 2018-12-13 09:53 | NUR ---
Had fair breakfast. Sleeping comfortably
[2018-12-13 11:04] VITALS: BP 132/66
[2018-12-13] MEDS ORDERED: POTASSIUM CHLORIDE 10 MEQ TAB.PRT.SR PO ONE (12:15)
[2018-12-13 15:32] VITALS: BP 119/74
[2018-12-13 17:27] VITALS: BP 119/74
--- NOTE | 2018-12-13 19:28 | NUR ---
With discharge order to home. Saline removed. Tele removed. Prescription to be called in by Sagrario Jackson to pharmacy, name and phone number provided. DC instruction given to and son, verbalized instruction. Endorsed
--- NOTE | 2018-12-13 19:44 | NUR ---
Went home per wheelchair in fair condition, not in distress, afebrile, accompanied by family
== END 2018-12-13 19:40 | disposition home health service (06) | DRG 280 ==
LOC: ER 10:57 → TELE3 12:38
PROVIDERS: ADMIT Registered Nurse; ATTEND Registered Nurse
DX: I13.0 Hypertensive heart and chronic kidney disease with heart failure and stage 1 through stage 4 chronic kidney disease, or unspecified chronic kidney disease (principal); I50.23 Acute on chronic systolic (congestive) heart failure; I21.4 Non-ST elevation (NSTEMI) myocardial infarction; I48.92 Unspecified atrial flutter; C25.9 Malignant neoplasm of pancreas, unspecified; E44.1 Mild protein-calorie malnutrition; N17.9 Acute kidney failure, unspecified; N39.0 Urinary tract infection, site not specified; D68.59 Other primary thrombophilia; I48.2 Chronic atrial fibrillation; I27.20 Pulmonary hypertension, unspecified; I25.2 Old myocardial infarction; E11.22 Type 2 diabetes mellitus with diabetic chronic kidney disease; N18.9 Chronic kidney disease, unspecified; I25.5 Ischemic cardiomyopathy; D63.8 Anemia in other chronic diseases classified elsewhere; I25.10 Atherosclerotic heart disease of native coronary artery without angina pectoris; Z79.890 Hormone replacement therapy; Z79.51 Long term (current) use of inhaled steroids; Z79.82 Long term (current) use of aspirin; Z79.01 Long term (current) use of anticoagulants; Z79.4 Long term (current) use of insulin; T50.2X5A Adverse effect of carbonic-anhydrase inhibitors, benzothiadiazides and other diuretics, initial encounter; E87.6 Hypokalemia; E11.40 Type 2 diabetes mellitus with diabetic neuropathy, unspecified; E03.9 Hypothyroidism, unspecified; Z74.09 Other reduced mobility; K21.9 Gastro-esophageal reflux disease without esophagitis; N40.0 Benign prostatic hyperplasia without lower urinary tract symptoms; F03.90 Unspecified dementia, unspecified severity, without behavioral disturbance, psychotic disturbance, mood disturbance, and anxiety; Z79.899 Other long term (current) drug therapy
CPT/HCPCS: 36415; 70030-TC; 71045; 76700; 83735; 84100; 84443; 85025; 85730; 93005; 93307; A4663; G0378; J1815; J1940; J3490

== ENCOUNTER 2019-12-13 18:51 | Inpatient (IN) | payer MEDICARE, OTHER ==
[~2019-12-13] VITALS: Ht 162.6 cm; Wt 88.9 kg
[~2019-12-13 18:51] MED LIST changes: -ALBU2.5V7 NEB; +AMIO200T4 PO; +BUME1TAB8 PO; +BUME2TAB7 PO; +CARV25TA2 PO; -CARV6.252 PO; -CLON0.3T PO; -DILT120C87 PO; +DUTA0.5C PO; -ESOM40CA PO; -FURO20TA4 PO; -HYDR25TA86 PO; -ISOS10TA2 PO; +ISOS20TA8 PO; -MECL-102 PO; +POTA10TA15 PO; -PREG75CA PO; +RANO500T3 PO; -SPIR25TA PO; -TAMS-3 PO
--- NOTE | 2019-12-13 19:13 | NUR ---
PT IS IN ROOM #1B. DR BIRMINGHAM EVALUATED THE PT. PARAMEDICS DID NOT BRING ALL PT's HOME MEDICATION INFORMATION. PT's RELATIVES ARE GOING TO BRING MEDICATION LIST LATER.
[2019-12-13] MEDS ORDERED: ONDANSETRON 4 MG/2 ML VIAL IV ONE ×2 (19:15→23:30)
[2019-12-13] MEDS ORDERED: MORPHINE SULFATE 2 MG/1 ML DISP.SYRIN IV ONE ×2 (19:15→20:00)
--- NOTE | 2019-12-13 19:15 | NUR ---
Patient complaints of pain to bilateral shoulders, left hip and left side of face just above eye brow, family states patient fell out of bed at home, Cut noted to left side of forehead just above eyebrow, X-ray in the room at this time. Patient able to urinate in urinal, urine sample sent to lab. 20g IV placed in left forearm and saline locked
[2019-12-13 19:34] LABS: BASOPHILS % (AUTO) 0.6 % (0.0-2.0); EOSINOPHILS # (AUTO) 0.2 K/uL (0.0-0.7); EOSINOPHILS % (AUTO) 2.8 % (0.0-7.0); HEMATOCRIT 28.7 % (36.7-47.1); HEMOGLOBIN 10.2 g/dL (12.5-16.3); LYMPHOCYTES # (AUTO) 0.9 K/uL (20.0-40.0); MEAN CORPUSCULAR HEMOGLOBIN 31.5 uug (23.8-33.4); MEAN CORPUSCULAR HGB CONC 35 g/dL (32.5-36.3); MEAN CORPUSCULAR VOLUME 88.9 fL (73.0-96.2); MONOCYTES # (AUTO) 0.8 K/uL (2.0-10.0); NEUTROPHILS # (AUTO) 6.2 K/uL (1.8-8.9); NEUTROPHILS % (AUTO) 75.6 % (38.5-71.5); PLATELET COUNT (AUTO) 211 K/uL (152-348); RED BLOOD CELL COUNT(AUTO) 3.23 MIL/uL (4.06-5.63); WHITE BLOOD COUNT (AUTO) 8.2 K/uL (3.6-10.2)
[2019-12-13] MEDS ORDERED: ONDANSETRON 4 MG/2 ML VIAL ONE ×2 (19:34→23:24)
[2019-12-13] MEDS ORDERED: MORPHINE SULFATE 2 MG/1 ML DISP.SYRIN ONE ×2 (19:35→19:56)
[2019-12-13 19:47] LABS: ALANINE AMINOTRANSFERASE 20 U/L (16-63); ALKALINE PHOSPHATASE 45 U/L (50-136); ASPARTATE AMINOTRANSFERASE 12 U/L (15-37); BILIRUBIN,DIRECT 0.1 mg/dL (0.0-0.2); BILIRUBIN,TOTAL 0.5 mg/dL (0.2-1.0); CARBON DIOXIDE 32 mmol/L (21-32); CHLORIDE 90 mmol/L (98-107); CREATININE 5.1 mg/dL (0.6-1.3); GLUCOSE 85 mg/dL (74-106); TOTAL PROTEIN, SERUM 6.8 g/dL (6.4-8.2); UREA NITROGEN, BLOOD 77 mg/dL (7-18)
[2019-12-13 19:51] LABS: POTASSIUM 2.7 mmol/L (3.5-5.1)
--- NOTE | 2019-12-13 19:55 | NUR ---
Radiology taking patient down for CT at this time
[2019-12-13 20:19] LABS: *BILIRUBIN,URIN NEGATIVE (NEGATIVE); *CLARITY,URINE CLEAR (CLEAR); *COLOR,URINE YELLOW (YELLOW); *KETONES,URINE NEGATIVE (NEGATIVE); *UROBILINOGEN,URINE 0.2 E.U./dl (NORMAL); LEUKOCYTE ESTERASE ,URINE NEGATIVE (NEGATIVE); NITRITE, URINE NEGATIVE (NEGATIVE); UGLUCOSE NEGATIVE (NEGATIVE)
[2019-12-13 20:25] LABS: *BLOOD, URINE TRACE LYSED (NEGATIVE)
--- NOTE | 2019-12-13 20:25 | NUR ---
Patient arrived from Radiology at this time
[2019-12-13 20:26] LABS: WBC,URINE NONE SEEN /HPF (0-3)
[2019-12-13] MEDS ORDERED: POTASSIUM BICARBONATE/CIT AC 25 MEQ TABLET.EFF PO ONE (20:45)
[2019-12-13] MEDS ORDERED: POTASSIUM BICARBONATE/CIT AC 25 MEQ TABLET.EFF ONE (20:49)
--- NOTE | 2019-12-13 21:01 | NUR ---
Patient swabbed for Covid at this time, no complaints of pain at this time, no signs of distress
--- NOTE | 2019-12-13 21:02 | NUR ---
Family member (son) at bedside for translation
[2019-12-13] MEDS ORDERED: NEOMY/BACITRA/POLYMYXIN B OINT UD PACKET TP ONE ×2 (21:30→21:35)
[2019-12-13] MEDS ORDERED: MORPHINE SULFATE 4 MG/1 ML DISP.SYRIN IV ONE ×2 (21:45→23:30)
[2019-12-13] MEDS ORDERED: MORPHINE SULFATE 4 MG/1 ML DISP.SYRIN ONE ×2 (21:48→23:24)
--- NOTE | 2019-12-13 21:50 | NUR ---
Called for bed at this time, room 319 tele
[2019-12-13] MEDS ORDERED: TAMS-3 PO (21:52)
[2019-12-13] MEDS ORDERED: LEVO50TA PO (21:52)
--- NOTE | 2019-12-13 22:07 | NUR ---
Patient noted resting in bed, son at bedside translation, no sings of distress, no complaints of pain
[2019-12-14] VITALS: BP 167/71
--- NOTE | 2019-12-14 00:26 | NUR ---
Pt. admitted to Tele, under care of Dr. Salguero Belongs List completed and sent with patient to room 319
[2019-12-14] MEDS ORDERED: ZOLPIDEM 5 MG TABLET PO PRN (00:30)
[2019-12-14] MEDS ORDERED: MORPHINE SULFATE 2 MG/1 ML DISP.SYRIN SQ PRN (00:30)
[2019-12-14] MEDS ORDERED: ONDANSETRON 4 MG/2 ML VIAL IV PRN (00:30)
[2019-12-14] MEDS ORDERED: IV 1/2NS 1000 ML 1,000 ML IV PRN (00:30)
[2019-12-14] MEDS ORDERED: HYDROCODONE/APAP 5-325MG TABLET PO PRN (00:30)
[2019-12-14] MEDS ORDERED: DEXTROSE 50% 50 ML DISP.SYRIN IV PRN (00:45)
[2019-12-14 04:35] VITALS: BP 154/68
[2019-12-14] MEDS: BLOOD SUGAR DIAGNOSTIC 1 EACH STRIP VI SCH ×4 (05:21→21:11)
[2019-12-14 06:03] LABS: BASOPHILS % (AUTO) 0.4 % (0.0-2.0); EOSINOPHILS # (AUTO) 0.2 K/uL (0.0-0.7); EOSINOPHILS % (AUTO) 1.4 % (0.0-7.0); HEMATOCRIT 27.9 % (36.7-47.1); HEMOGLOBIN 9.8 g/dL (12.5-16.3); LYMPHOCYTES # (AUTO) 0.6 K/uL (20.0-40.0); LYMPHOCYTES % (AUTO) 4.8 % (20.5-51.5); MEAN CORPUSCULAR HEMOGLOBIN 31.6 uug (23.8-33.4); MEAN CORPUSCULAR HGB CONC 35 g/dL (32.5-36.3); MEAN CORPUSCULAR VOLUME 89.9 fL (73.0-96.2); MONOCYTES % (AUTO) 8.6 % (0.0-11.0); NEUTROPHILS # (AUTO) 9.9 K/uL (1.8-8.9); NEUTROPHILS % (AUTO) 84.8 % (38.5-71.5); PLATELET COUNT (AUTO) 201 K/uL (152-348); WHITE BLOOD COUNT (AUTO) 11.6 K/uL (3.6-10.2)
[2019-12-14 06:20] LABS: ALANINE AMINOTRANSFERASE 21 U/L (16-63); ALKALINE PHOSPHATASE 47 U/L (50-136); ASPARTATE AMINOTRANSFERASE 12 U/L (15-37); BILIRUBIN,TOTAL 0.7 mg/dL (0.2-1.0); CARBON DIOXIDE 35 mmol/L (21-32); CHLORIDE 90 mmol/L (98-107); CHOLESTEROL 152 mg/dL (<200); CREATININE 5.1 mg/dL (0.6-1.3); GLUCOSE 125 mg/dL (74-106); HDL CHOLESTEROL 71 mg/dL (40-60); IRON, SERUM 54 ug/dL (50-175); PHOSPHOROUS 6.2 mg/dL (2.5-4.9); TOTAL PROTEIN, SERUM 6.6 g/dL (6.4-8.2); TRIGLYCERIDES 74 MG/DL (30-150); UREA NITROGEN, BLOOD 77 mg/dL (7-18)
[2019-12-14 06:30] LABS: THYROID STIMULATING HORMONE 15.989 mIU/mL (0.358-3.740)
--- NOTE | 2019-12-14 07:03 | NUR ---
Patient alert oriented, no sob no chest pain, tele monitor sinus rhythm at this time, cont on pain management due to left hip fracture, uses urinal for bladder eliminations, cont to monitor.
[2019-12-14 08:00] VITALS: BP 137/78
--- NOTE | 2019-12-14 08:12 | NUR ---
Upon initial assessment patient found with severe episode of wheezing, saturation fluctuating between 60-88. pt. mottle with extremities cold. Patient remains awake alert during this episode and noted to have labor breathing, pt. encouraged to take deep breaths, saturation increased to 92-94% left on monitor and ABG stat order. awaiting results to notify attending. Addendum: 12/14/19 at 0951 by FREDY DHALIWAL RN [id number] Mccain, and informed him of abg results orders received and implemented. Also orders to stope IVF received. RT Thacker informed of new orders.
[2019-12-14 08:29] LABS: ABG BASE EXCESS 3.5 mmol/L; ABG HCO3 28.5 mmol/L; ABG PCO2 45.1 mmHg (35.0-45.0); ABG PH 7.418 (7.350-7.450); ABG PO2 56.8 mmHg (75.0-100.0); ABG SITE LEFT RADIAL; ABG TOTAL HEMOGLOBIN 10.7 G/dL (13.5-18.0); COHb 1.9 % (0.5-1.5)
[2019-12-14] MEDS ORDERED: PANTOPRAZOLE SODIUM 40 MG VIAL IV SCH (09:00)
[2019-12-14] MEDS ORDERED: LEVALBUTEROL HCL NEB 0.63 MG/3 ML NEBU NEB PRN (09:15)
[2019-12-14] MEDS ORDERED: ALBUTEROL SULFATE 1.25 MG/3 ML NEBU NEB PRN (09:15)
[2019-12-14] MEDS: POTASSIUM CHLORIDE 50 ML IV SCH ×3 (11:15→12:37)
[2019-12-14] MEDS ORDERED: ENALAPRILAT DIHYDRATE 1.25 MG/1 ML VIAL IV PRN (11:15)
[2019-12-14 11:35] VITALS: BP 122/60
[2019-12-14] MEDS: INSULIN REGULAR, HUMAN 300 UNIT/3 ML VIAL SQ PRN ×2 (12:36→17:33)
--- NOTE | 2019-12-14 13:44 | NUR ---
Potassium iv dcd pt. didn't tolerate infusion . notified orders to replace it po received.
[2019-12-14] MEDS ORDERED: POTASSIUM CHLORIDE 20 MEQ POWDER PACKET PO ONE (13:45)
[2019-12-14] MEDS: MORPHINE SULFATE 2 MG/1 ML DISP.SYRIN IV PRN (13:54)
[2019-12-14 16:00] VITALS: BP 156/76
[2019-12-14 16:45] LABS: *BILIRUBIN,URIN NEGATIVE (NEGATIVE); *BLOOD, URINE NEGATIVE (NEGATIVE); *CLARITY,URINE CLEAR (CLEAR); *COLOR,URINE YELLOW (YELLOW); *KETONES,URINE NEGATIVE (NEGATIVE); *UROBILINOGEN,URINE 0.2 E.U./dl (NORMAL); LEUKOCYTE ESTERASE ,URINE NEGATIVE (NEGATIVE); NITRITE, URINE NEGATIVE (NEGATIVE); PH,URINE 5.5 (5.0-8.0); UGLUCOSE NEGATIVE (NEGATIVE)
[2019-12-14 16:54] LABS: *CREATININE,URINE 69.3 mg/dL (30-125); *URINE TOTAL PROTEIN RANDOM 26.5 mg/dL (<150/24HR)
--- NOTE | 2019-12-14 17:45 | NUR ---
Received patient lying in bed. No signs or symptoms of acute distress noted at this time. Patient is on 2L O2 via NC and does not appear to be SOB. Denies pain at this time. bus driver/monitor is on. Gonzalez catheter in place and draining. IV patent and intact. Bed locked and in low position. Safety measures in place and will continue to monitor.
[2019-12-14 20:26] VITALS: BP 143/53
[2019-12-15 01:10] VITALS: BP 137/61
[2019-12-15 04:00] VITALS: BP 123/53
[2019-12-15] MEDS: BLOOD SUGAR DIAGNOSTIC 1 EACH STRIP VI SCH ×4 (06:31→20:45)
[2019-12-15 06:48] LABS: ALANINE AMINOTRANSFERASE 21 U/L (16-63); ALKALINE PHOSPHATASE 42 U/L (50-136); ASPARTATE AMINOTRANSFERASE 10 U/L (15-37); BILIRUBIN,TOTAL 0.6 mg/dL (0.2-1.0); CARBON DIOXIDE 31 mmol/L (21-32); CHLORIDE 91 mmol/L (98-107); CREATINE KINASE, TOTAL 82 U/L (39-308); CREATININE 5.1 mg/dL (0.6-1.3); GLUCOSE 65 mg/dL (74-106); PHOSPHOROUS 6.3 mg/dL (2.5-4.9); POTASSIUM 3.2 mmol/L (3.5-5.1); TOTAL PROTEIN, SERUM 6.2 g/dL (6.4-8.2); UREA NITROGEN, BLOOD 77 mg/dL (7-18)
[2019-12-15 06:59] LABS: BASOPHILS # (AUTO) 0.1 K/uL (0.0-8.0); BASOPHILS % (AUTO) 0.6 % (0.0-2.0); EOSINOPHILS # (AUTO) 0.4 K/uL (0.0-0.7); EOSINOPHILS % (AUTO) 3.3 % (0.0-7.0); HEMATOCRIT 25.5 % (36.7-47.1); HEMOGLOBIN 9.1 g/dL (12.5-16.3); LYMPHOCYTES # (AUTO) 0.9 K/uL (20.0-40.0); LYMPHOCYTES % (AUTO) 7.9 % (20.5-51.5); MEAN CORPUSCULAR HEMOGLOBIN 31.9 uug (23.8-33.4); MEAN CORPUSCULAR HGB CONC 36 g/dL (32.5-36.3); MEAN CORPUSCULAR VOLUME 89.7 fL (73.0-96.2); MONOCYTES # (AUTO) 0.8 K/uL (2.0-10.0); MONOCYTES % (AUTO) 7.6 % (0.0-11.0); NEUTROPHILS # (AUTO) 8.8 K/uL (1.8-8.9); NEUTROPHILS % (AUTO) 80.6 % (38.5-71.5); PLATELET COUNT (AUTO) 181 K/uL (152-348); RED BLOOD CELL COUNT(AUTO) 2.85 MIL/uL (4.06-5.63); WHITE BLOOD COUNT (AUTO) 10.9 K/uL (3.6-10.2)
[2019-12-15] MEDS ORDERED: POLYMYXIN B SULFATE 500,000 UNITS, BACITRACIN 50,000 UNITS, NORMAL SALINE 20 ML MC ONE ×3 (07:15)
--- NOTE | 2019-12-15 07:18 | NUR ---
Patient BS at 0630 was initially 57. Patient was awake and alert. Gave the patient 2 cartons of orange juice and rechecked BS at 0657 and went up to 63. Patient remained awake and alert and gave 2 apple juice cartons. Rechecked BS at 0718 and went up to 75. Endorsed to oncoming nurse.
--- NOTE | 2019-12-15 07:30 | NUR ---
Received pt. in bed AAOx3-4. vitals stable, IV line to LFA patent. Gonzalez to gravity. Will continue with care plan.
[2019-12-15 08:14] VITALS: BP 116/47
[2019-12-15] MEDS: PANTOPRAZOLE SODIUM 40 MG TABLET.DR PO SCH (08:35)
[2019-12-15] MEDS: MORPHINE SULFATE 2 MG/1 ML DISP.SYRIN IV PRN (09:05)
[2019-12-15] MEDS ORDERED: POTASSIUM CHLORIDE 20 MEQ POWDER PACKET GT ONE (11:00)
[2019-12-15] MEDS: AMIODARONE HCL 200 MG TABLET PO SCH (11:45)
[2019-12-15] MEDS: ASPIRIN 81 MG TAB.CHEW PO SCH (11:45)
[2019-12-15] MEDS: CARVEDILOL 6.25 MG TABLET PO SCH ×2 (11:47→17:06)
[2019-12-15 12:00] VITALS: BP 103/40
[2019-12-15] MEDS: INSULIN REGULAR, HUMAN 300 UNIT/3 ML VIAL SQ PRN ×3 (12:01→20:51)
[2019-12-15 16:00] VITALS: BP 110/52
--- NOTE | 2019-12-15 18:14 | NUR ---
Left pt. in bed resting medicated for pain when requested. On 2LNC saturation above 92%. IV line patent and HL. Tolerating diet well with no n/v. major to gravity with adequate urine output. During shift no report of cp. sob. No skin breakdown. Patient placed on 1st SM. According to care plan awaiting a call from Dr. Capone's office with orders for possible surgery tomorrow at 1300 as informed by Julee OR. tech. care plan discussed with rim fire charger operator. and global human resources director aware. During shift patient spoke with family x 2 via face time.
[2019-12-15 20:00] VITALS: BP 136/50
--- NOTE | 2019-12-15 20:00 | NUR ---
RECEIVED PATIENT AWAKE IN BED. ALERT TO SELF. FILIPINO SPEAKING ONLY. NO S/S OF ANY PAIN OR DISCOMFORT. NO FACIAL GRIMACE NOTED. VSS. NO RESP. DISTRESS NOTED. H/L INTACT AND PATENT, NOTED TO LEFT HAND #20 GAUGE. ON TELE SR. ON AIR MATTRESS. CALL LIGHT IN REACH. ALL NEEDS ATTENDED. WILL CONTINUE TO MONITOR AND ASSESS.
[2019-12-15] MEDS: ATORVASTATIN 40 MG TABLET PO SCH (20:50)
[2019-12-15] MEDS: RANOLAZINE 500 MG TAB.ER.12H PO SCH (20:50)
[2019-12-15] MEDS: ACETAMINOPHEN 325 MG TABLET PO PRN (20:51)
[2019-12-16 00:15] VITALS: BP 121/56
[2019-12-16 05:06] VITALS: BP 113/48
--- NOTE | 2019-12-16 06:10 | NUR ---
PATIENT AWAKE IN BED. C/O PAIN IN LEFT HIP. GIVEN MORPHINE 2MG IV PRN PER MANAGER UNIT. CHECKED BS AND RECEIVED 53. PATIENT IS ASYMPTOMATIC. NOTIFIED MANAGER UNIT. GIVEN SMALL AMOUNT OF JUICE. ON TELE SR. CALL LIGHT IN REACH. ALL NEEDS ATTENDED. WILL CONTINUE TO MONITOR AND ASSESS.
[2019-12-16] MEDS: PANTOPRAZOLE SODIUM 40 MG TABLET.DR PO SCH (06:17)
[2019-12-16] MEDS: MORPHINE SULFATE 2 MG/1 ML DISP.SYRIN IV PRN ×3 (06:21→20:55)
[2019-12-16] MEDS: BLOOD SUGAR DIAGNOSTIC 1 EACH STRIP VI SCH ×6 (06:27→20:39)
--- NOTE | 2019-12-16 06:40 | NUR ---
RECHECKED BLOOD SUGAR AND RECEIVED 51. PATIENT IS AWAKE AND ALERT, GIVEN D50 PER ELEMENTARY SCHOOL DIRECTOR. ALL NEEDS ATTENDED. WILL RECHECK. ALL NEEDS ATTENDED. WILL CONTINUE TO MONITOR AND ASSESS.
[2019-12-16 06:57] LABS: BASOPHILS % (AUTO) 0.4 % (0.0-2.0); EOSINOPHILS # (AUTO) 0.3 K/uL (0.0-0.7); HEMATOCRIT 23.3 % (36.7-47.1); HEMOGLOBIN 8.3 g/dL (12.5-16.3); LYMPHOCYTES # (AUTO) 0.8 K/uL (20.0-40.0); LYMPHOCYTES % (AUTO) 6.5 % (20.5-51.5); MEAN CORPUSCULAR HEMOGLOBIN 31.9 uug (23.8-33.4); MEAN CORPUSCULAR HGB CONC 36 g/dL (32.5-36.3); MEAN CORPUSCULAR VOLUME 89.9 fL (73.0-96.2); MONOCYTES % (AUTO) 8.8 % (0.0-11.0); NEUTROPHILS # (AUTO) 9.4 K/uL (1.8-8.9); NEUTROPHILS % (AUTO) 81.3 % (38.5-71.5); PLATELET COUNT (AUTO) 165 K/uL (152-348); RED BLOOD CELL COUNT(AUTO) 2.59 MIL/uL (4.06-5.63); WHITE BLOOD COUNT (AUTO) 11.6 K/uL (3.6-10.2)
--- NOTE | 2019-12-16 07:06 | NUR ---
rechecked bs after dextrose was given. bs now 137. paid internship notified and endorsed to am shift.
--- NOTE | 2019-12-16 07:10 | NUR ---
RESTING COMFORTABLY IN BED NO SS OF PAIN OR DISTRESS, EASILY AWAKEN WITH NAME. SR ON MONITOR. AWAITING DR CHIRINOS FOR SURGERY ORDER
[2019-12-16 07:16] LABS: CARBON DIOXIDE 32 mmol/L (21-32); CHLORIDE 91 mmol/L (98-107); CREATININE 5.4 mg/dL (0.6-1.3); GLUCOSE 55 mg/dL (74-106); MAGNESIUM 2.1 mg/dL (1.8-2.4); PHOSPHOROUS 6.5 mg/dL (2.5-4.9); POTASSIUM 3.3 mmol/L (3.5-5.1)
[2019-12-16 07:45] LABS: UREA NITROGEN, BLOOD 81 mg/dL (7-18)
[2019-12-16 08:00] VITALS: BP 127/48
--- NOTE | 2019-12-16 08:00 | NUR ---
DR CHIRINOS CALLED AND GAVE ORDER FOR IM NAILING TODAY AT 1100. SON NOTIFIED AND GAVE CONSENT ON THE PHONE CO-SIGNED BY CHARGE NURSE
[2019-12-16] MEDS: AMIODARONE HCL 200 MG TABLET PO SCH (08:25)
[2019-12-16] MEDS: CARVEDILOL 6.25 MG TABLET PO SCH ×2 (08:25→18:25)
[2019-12-16] MEDS: RANOLAZINE 500 MG TAB.ER.12H PO SCH ×2 (08:26→20:23)
[2019-12-16] MEDS: ASPIRIN 81 MG TAB.CHEW PO SCH (08:26)
[2019-12-16] MEDS ORDERED: POTASSIUM CHLORIDE 20 MEQ POWDER PACKET PO ONE (08:30)
[2019-12-16] MEDS ORDERED: POTASSIUM CHLORIDE 50 ML IV SCH (08:30)
--- NOTE | 2019-12-16 08:30 | NUR ---
SEEN BY DR CHAUHAN NOTED LABS AND REPLACED POTASSIUM. SAID CLEARED FOR SURGERY
--- NOTE | 2019-12-16 10:00 | NUR ---
SEEN BY DR BETTS AND SAID CLEARED FOR SURGERY
[2019-12-16] MEDS ORDERED: VANCOMYCIN 1000 MG VIAL ONE (10:03)
--- NOTE | 2019-12-16 10:30 | NUR ---
TO OR WITH STAFF VIA BED. REPORT GIVEN TO OR STAFF
[2019-12-16] MEDS ORDERED: HYDROMORPHONE 2 MG/1 ML DISP.SYRIN ONE (10:50)
--- NOTE | 2019-12-16 12:31 | NUR ---
1130 blood sugar not done patient still in OR
--- NOTE | 2019-12-16 13:40 | NUR ---
BACK FROM SURGERY SP INTRAMEDULLARY NAILING LEFT HIP,DRESSING INTACT, GOOD CAPILLARY REFILL, GOOD PEDAL PULSES, STILL DROWSY BUT RESPONSIVE WHEN AROUSED. NO SS OF DISTRESS, O2 SAT 100% ON 3L NC. POST OP CARE DONE
[2019-12-16] MEDS ORDERED: POTASSIUM CHLORIDE 20 MEQ in IV D5 1/2 NS 1000 ML 1,000 ML IV PRN (14:00)
[2019-12-16 16:00] VITALS: BP 119/54
[2019-12-16] MEDS ORDERED: ONDANSETRON 4 MG/2 ML VIAL IV ONE (16:40)
[2019-12-16] MEDS ORDERED: ETOMIDATE 20 MG/10 ML VIAL MC ONE (16:40)
[2019-12-16] MEDS ORDERED: DEXAMETHASONE SOD PHOSPHATE 4 MG INJ IV ONE (16:40)
[2019-12-16] MEDS ORDERED: SEVOFLURANE 250 ML BOTTLE IH ONE (16:40)
[2019-12-16] MEDS ORDERED: CEFAZOLIN 1 G VIAL MC ONE (16:40)
[2019-12-16] MEDS ORDERED: PROPOFOL 200 MG/20 ML BOTTLE IV ONE (16:40)
[2019-12-16] MEDS: INSULIN REGULAR, HUMAN 300 UNIT/3 ML VIAL SQ PRN ×2 (16:49→20:42)
--- NOTE | 2019-12-16 18:33 | NUR ---
MEDICATED X1 FOR LEFT HIP PAIN WITH GOOD RESULTS
[2019-12-16] MEDS: CEFAZOLIN 2 G in IV DEXTROSE 5% 100 ML IV SCH (18:58)
--- NOTE | 2019-12-16 19:10 | NUR ---
Received pt in bed, awake. Pt denies any acute distress but complains of pain on his left hip. Will further assess and give prescribed PRN pain medication. Pt has a sustained left eye bruise/abrasion. V/S stable on 3L NC. Afebrile. Dressing on the L hip is dry and intact. Safety measures in place. Bed low and locked in position. Call light within reach. Will continue with the plan of care.
[2019-12-16 20:00] VITALS: BP 125/75
[2019-12-16] MEDS: ATORVASTATIN 40 MG TABLET PO SCH (20:23)
[2019-12-17] VITALS (7 sets, daily range): BP systolic 115–131; BP diastolic 47–60
[2019-12-17] MEDS: CEFAZOLIN 2 G in IV DEXTROSE 5% 100 ML IV SCH (02:03)
[2019-12-17 06:06] LABS: A/G RATIO 1.1 (0.7-1.7); ALBUMIN 2.8 g/dL (2.9-4.4); ALPHA-1-GLOBULIN 0.4 g/dL (0.0-0.4); ALPHA-2-GLOBULIN 0.7 g/dL (0.4-1.0); BETA GLOBULIN 0.8 g/dL (0.7-1.3); GAMMA GLOBULIN 0.6 g/dL (0.4-1.8); GLOBULIN, TOTAL 2.6 g/dL (2.2-3.9); M-SPIKE Not Observed g/dL (Not Observed)
[2019-12-17 06:35] LABS: BASOPHILS % (AUTO) 0.1 % (0.0-2.0); HEMATOCRIT 21.6 % (36.7-47.1); LYMPHOCYTES # (AUTO) 0.6 K/uL (20.0-40.0); MEAN CORPUSCULAR HEMOGLOBIN 30.9 uug (23.8-33.4); MEAN CORPUSCULAR HGB CONC 34 g/dL (32.5-36.3); MEAN CORPUSCULAR VOLUME 90.1 fL (73.0-96.2); MONOCYTES # (AUTO) 0.8 K/uL (2.0-10.0); MONOCYTES % (AUTO) 5.7 % (0.0-11.0); NEUTROPHILS # (AUTO) 12.4 K/uL (1.8-8.9); NEUTROPHILS % (AUTO) 90.2 % (38.5-71.5); PLATELET COUNT (AUTO) 177 K/uL (152-348); WHITE BLOOD COUNT (AUTO) 13.7 K/uL (3.6-10.2)
[2019-12-17] MEDS: PANTOPRAZOLE SODIUM 40 MG TABLET.DR PO SCH (06:36)
[2019-12-17] MEDS: BLOOD SUGAR DIAGNOSTIC 1 EACH STRIP VI SCH ×4 (06:36→20:31)
[2019-12-17 06:40] LABS: CARBON DIOXIDE 29 mmol/L (21-32); CHLORIDE 92 mmol/L (98-107); CREATININE 5.8 mg/dL (0.6-1.3); GLUCOSE 217 mg/dL (74-106); POTASSIUM 4.3 mmol/L (3.5-5.1)
[2019-12-17 06:46] LABS: RED BLOOD CELL COUNT(AUTO) 2.39 MIL/uL (4.06-5.63)
--- NOTE | 2019-12-17 06:47 | NUR ---
Pt slept intermittently through the night. Pt is awake and denies any acute distress or pain. V/S stable on 3L NC. Afebrile. NSR 64 on tele monitor. Dressing on L Hip remained dry and intact. Comfort care and needs attended. Kept clean and dry. Pain managed effectively. Fall and aspiration precaution maintained. Safety measures in place. Call light within reach. Will endorse to the oncoming nurse accordingly.
[2019-12-17 06:48] LABS: UREA NITROGEN, BLOOD 90 mg/dL (7-18)
[2019-12-17 06:49] LABS: HEMOGLOBIN 7.4 g/dL (12.5-16.3)
[2019-12-17] MEDS: INSULIN REGULAR, HUMAN 300 UNIT/3 ML VIAL SQ PRN ×4 (07:51→20:41)
--- NOTE | 2019-12-17 08:00 | NUR ---
Received pt in bed awake AOx2, follows commands. On O2 @ 3L with no SOB or distress noted at this time. Bruise on left eye with dressing for laceration, no signs of infection. On tele SR with 1st degree AV block, denied chest pain. IV on right hand 20g running D5 1/2NS @ 75cc. Dressing on left hip in place, original dressing, clean. left knee with tova, no signs of infection and dehiscence. DVT pumps on right leg in place, pt on air mattress. Gonzalez catheter in place draining clear liquid urine. Bed locked in lowest position with siderails 2x up. Call light and phone within reach. Will monitor
--- NOTE | 2019-12-17 08:01 | NUR ---
Dr. Alvarez in patient's room. Wanted to follow-up on family wanting to talk to Dr. Mclean regarding starting HD. Will follow-up
[2019-12-17] MEDS: ASPIRIN 81 MG TAB.CHEW PO SCH (08:48)
[2019-12-17] MEDS: RANOLAZINE 500 MG TAB.ER.12H PO SCH ×2 (08:48→21:03)
[2019-12-17] MEDS: AMIODARONE HCL 200 MG TABLET PO SCH (08:56)
[2019-12-17] MEDS: CARVEDILOL 6.25 MG TABLET PO SCH ×2 (08:59→17:58)
[2019-12-17] MEDS: MORPHINE SULFATE 2 MG/1 ML DISP.SYRIN IV PRN ×3 (09:00→19:57)
--- NOTE | 2019-12-17 10:04 | NUR ---
Informed Dr. Mclean regarding pt's family wanting to talk him regarding HD, aware
[2019-12-17] MEDS: BUMETANIDE 1 MG TABLET PO SCH (11:15)
--- NOTE | 2019-12-17 19:00 | NUR ---
Patient alert verbally responsive. Patient complains of left hip pain, will medicate patient as ordered. Patient left hip dressing intact, no drainage noted. Patient major cath patent draining with yellow color urine in moderate amount. Kept clean and dry, cont to monitor.
[2019-12-17] MEDS: ATORVASTATIN 40 MG TABLET PO SCH (21:03)
[2019-12-18 00:34] VITALS: BP 133/50
[2019-12-18 05:03] VITALS: BP 127/66
--- NOTE | 2019-12-18 05:36 | NUR ---
Patient alert but forgetful, patient able to talk to son via zoom. Patient major cath patent draining with yellow color urine in moderate amount. Patient left hip dressing intact, with bloody stain on the dressing, still on original dressing, cont pain management. cont to monitor.
[2019-12-18] MEDS: PANTOPRAZOLE SODIUM 40 MG TABLET.DR PO SCH (06:10)
[2019-12-18] MEDS: BLOOD SUGAR DIAGNOSTIC 1 EACH STRIP VI SCH ×4 (06:11→22:16)
[2019-12-18 07:03] LABS: EOSINOPHILS % (AUTO) 1.2 % (0.0-7.0); LYMPHOCYTES # (AUTO) 0.8 K/uL (20.0-40.0); MEAN CORPUSCULAR HEMOGLOBIN 31.6 uug (23.8-33.4); PLATELET COUNT (AUTO) 165 K/uL (152-348)
[2019-12-18 07:06] LABS: BASOPHILS % (AUTO) 0.3 % (0.0-2.0); EOSINOPHILS # (AUTO) 0.2 K/uL (0.0-0.7); LYMPHOCYTES % (AUTO) 6.4 % (20.5-51.5); MEAN CORPUSCULAR HGB CONC 35 g/dL (32.5-36.3); MEAN CORPUSCULAR VOLUME 89.8 fL (73.0-96.2); MONOCYTES # (AUTO) 1.2 K/uL (2.0-10.0); MONOCYTES % (AUTO) 9.2 % (0.0-11.0); NEUTROPHILS # (AUTO) 10.6 K/uL (1.8-8.9); NEUTROPHILS % (AUTO) 82.9 % (38.5-71.5); WHITE BLOOD COUNT (AUTO) 12.8 K/uL (3.6-10.2)
[2019-12-18 07:11] LABS: CARBON DIOXIDE 24 mmol/L (21-32); CHLORIDE 90 mmol/L (98-107); CREATININE 6.2 mg/dL (0.6-1.3); GLUCOSE 122 mg/dL (74-106); POTASSIUM 3.8 mmol/L (3.5-5.1)
[2019-12-18 07:30] VITALS: BP 107/49
--- NOTE | 2019-12-18 07:30 | NUR ---
Received Patient in bed, awake and verbally responsive. No signs of distress noted. No SOB. Afebrile. No complain of pain or discomfort at this time. Patient with Scheduled PermCath Insertion today, NPO after 8AM. All needs attended and met. Will continue to monitor.
[2019-12-18] MEDS: CARVEDILOL 6.25 MG TABLET PO SCH ×2 (08:00→18:00)
[2019-12-18 08:07] LABS: HEMATOCRIT 18.9 % (36.7-47.1); HEMOGLOBIN 6.6 g/dL (12.5-16.3)
[2019-12-18 08:08] LABS: UREA NITROGEN, BLOOD 105 mg/dL (7-18)
[2019-12-18] MEDS: INSULIN REGULAR, HUMAN 300 UNIT/3 ML VIAL SQ PRN ×2 (08:30→22:18)
--- NOTE | 2019-12-18 08:30 | NUR ---
Received a hgb 6.6, relayed to Dr. Alvarez.
[2019-12-18] MEDS: BUMETANIDE 1 MG TABLET PO SCH (08:32)
[2019-12-18] MEDS: RANOLAZINE 500 MG TAB.ER.12H PO SCH ×2 (08:32→21:23)
[2019-12-18] MEDS: AMIODARONE HCL 200 MG TABLET PO SCH (08:33)
--- NOTE | 2019-12-18 08:50 | NUR ---
received a call from Dr. teresa to give 1 PRBC., got consent from Son via Phone with 2 witness.
[2019-12-18] MEDS: ASPIRIN 81 MG TAB.CHEW PO SCH (09:00)
--- NOTE | 2019-12-18 09:00 | NUR ---
Received a call from [employer], patient will be machine operator picker at 2;30PM for Perma cath Insertion.
--- NOTE | 2019-12-18 11:00 | NUR ---
Started Blood transfusion on Left hand G 20, BP 119/49 P 67 R 18 T 98.1.
--- NOTE | 2019-12-18 11:30 | NUR ---
1130 Blood Sugar 136, Held Insulin, Patient is NPO, with PermCath insertion at 3PM. Blood transfusion on going.
--- NOTE | 2019-12-18 13:55 | NUR ---
1 PRBC completed transfusion. No ASE noted. Afebrile. No signs of distress noted. No SOB. No complain of pain or discomfort. Will continue to monitor.
[2019-12-18] MEDS ORDERED: HEPARIN/NS 500 ML ONE (14:49)
[2019-12-18] MEDS ORDERED: IOHEXOL 300MG/ML 50 ML VIAL ONE (14:49)
[2019-12-18] MEDS ORDERED: HEPARIN SODIUM,PORCINE 1,000 UNITS/ML VIAL ONE (14:49)
--- NOTE | 2019-12-18 15:15 | NUR ---
Patient was picked up for PermCath Insertion.
[2019-12-18] MEDS ORDERED: LIDOCAINE HCL 1% 20 ML VIAL ONE (15:39)
[2019-12-18] MEDS ORDERED: POLYMYXIN B SULFATE 500,000 UNITS, BACITRACIN 50,000 UNITS, NORMAL SALINE 20 ML MC ONE ×3 (16:00)
--- NOTE | 2019-12-18 17:15 | NUR ---
Patient came back from Surgery in stable condition. BP 140/57 P 61 R 18 T 98.0, On Oxygen at 3L via nasal canula, saturating 100%. Blood Sugar 69.
--- NOTE | 2019-12-18 18:29 | NUR ---
patient in bed, awake, alert and verbally responsive. On Oxygen at 2L via nasal canula saturating 99%. No complain or discomfort at this time. Right Chest PermCath intact. No Bleeding noted. kept clean and comfortable. patient is scheduled for Dialysis today. Will endorse to Oncoming Nurse.
[2019-12-18] MEDS ORDERED: CEFAZOLIN 1 G VIAL MC ONE (18:39)
[2019-12-18] MEDS ORDERED: PROPOFOL 200 MG/20 ML BOTTLE IV ONE (18:39)
--- NOTE | 2019-12-18 18:51 | NUR ---
Dialysis Nurse in Patient's Room, Will start 1st Dialysis.
[2019-12-18 20:07] VITALS: BP 117/50
[2019-12-18] MEDS: HYDROCODONE/APAP 5-325MG TABLET PO PRN (21:22)
[2019-12-18] MEDS: ATORVASTATIN 40 MG TABLET PO SCH (21:23)
--- NOTE | 2019-12-18 22:00 | NUR ---
HD tolerated well and output of 500ml; pt had facetime with family. given [place] for pain with good results. .
[2019-12-19 00:17] VITALS: BP 140/60
[2019-12-19 02:08] LABS: EOSINOPHILS % (MANUAL) 2 % (0-8); LYMPHOCYTES % (MANUAL) 9 % (20-40); MONOCYTES % (MANUAL) 6 % (2-10); NEUTROPHILS % (MANUAL) 83 % (42-75)
[2019-12-19 04:39] VITALS: BP 136/56
[2019-12-19 05:54] LABS: BASOPHILS % (AUTO) 0.5 % (0.0-2.0); EOSINOPHILS # (AUTO) 0.2 K/uL (0.0-0.7); EOSINOPHILS % (AUTO) 2.6 % (0.0-7.0); HEMATOCRIT 21.6 % (36.7-47.1); HEMOGLOBIN 7.7 g/dL (12.5-16.3); LYMPHOCYTES # (AUTO) 0.5 K/uL (20.0-40.0); LYMPHOCYTES % (AUTO) 6.8 % (20.5-51.5); MEAN CORPUSCULAR HEMOGLOBIN 32.1 uug (23.8-33.4); MEAN CORPUSCULAR HGB CONC 36 g/dL (32.5-36.3); MEAN CORPUSCULAR VOLUME 90.5 fL (73.0-96.2); MONOCYTES # (AUTO) 0.9 K/uL (2.0-10.0); MONOCYTES % (AUTO) 11.9 % (0.0-11.0); NEUTROPHILS # (AUTO) 5.9 K/uL (1.8-8.9); NEUTROPHILS % (AUTO) 78.2 % (38.5-71.5); PLATELET COUNT (AUTO) 152 K/uL (152-348); WHITE BLOOD COUNT (AUTO) 7.6 K/uL (3.6-10.2)
[2019-12-19 06:05] LABS: RED BLOOD CELL COUNT(AUTO) 2.38 MIL/uL (4.06-5.63)
[2019-12-19 06:10] LABS: CARBON DIOXIDE 28 mmol/L (21-32); CHLORIDE 99 mmol/L (98-107); CREATININE 4.6 mg/dL (0.6-1.3); GLUCOSE 97 mg/dL (74-106); POTASSIUM 3.4 mmol/L (3.5-5.1); UREA NITROGEN, BLOOD 72 mg/dL (7-18)
[2019-12-19] MEDS: PANTOPRAZOLE SODIUM 40 MG TABLET.DR PO SCH (06:30)
[2019-12-19] MEDS: BLOOD SUGAR DIAGNOSTIC 1 EACH STRIP VI SCH ×4 (06:31→20:43)
--- NOTE | 2019-12-19 06:54 | NUR ---
HD nurse here will do another HD; Incentive spirometer placed in room and to follow up to use on pt
[2019-12-19 07:06] LABS: HEPATITIS B SURFACE AB Non Reactive (.); HEPATITIS B SURFACE AG Negative (Negative)
--- NOTE | 2019-12-19 07:15 | NUR ---
Patient in bed, No signs of distress noted. No SOB. On Oxygen at 2L via Nasal canula. HD nurse at bedside, ongoing Dialysis. Will continue to monitor.
[2019-12-19] MEDS: CARVEDILOL 6.25 MG TABLET PO SCH ×2 (08:00→17:06)
[2019-12-19] MEDS: ASPIRIN 81 MG TAB.CHEW PO SCH (09:44)
[2019-12-19] MEDS: BUMETANIDE 1 MG TABLET PO SCH (09:44)
[2019-12-19] MEDS: AMIODARONE HCL 200 MG TABLET PO SCH (09:44)
[2019-12-19] MEDS: RANOLAZINE 500 MG TAB.ER.12H PO SCH ×2 (09:44→20:24)
--- NOTE | 2019-12-19 09:50 | NUR ---
HD done with 1500 output.
[2019-12-19 11:24] VITALS: BP 129/55
[2019-12-19] MEDS: INSULIN REGULAR, HUMAN 300 UNIT/3 ML VIAL SQ PRN ×3 (11:30→20:29)
--- NOTE | 2019-12-19 12:13 | NUR ---
Gave report to Alberto.
[2019-12-19 15:29] VITALS: BP 127/55
[2019-12-19] MEDS: HYDROCODONE/APAP 5-325MG TABLET PO PRN (16:36)
--- NOTE | 2019-12-19 17:41 | NUR ---
dressing change per md orders
[2019-12-19] MEDS: ATORVASTATIN 40 MG TABLET PO SCH (20:24)
[2019-12-19 20:32] VITALS: BP 119/51
--- NOTE | 2019-12-19 21:20 | NUR ---
patients son on face sheet called at 1914 and asked to speak with father on face time to RN at overnight cashier. RN informed son that she would call him from face time after report around 1999. At 1999 face time was initiated with father and patient was speaking with son for about 50 minutes. At 2049 patients other son not on face sheet Mina asked for face time with father. However, when entering the room father told RN, "tomorrow, no more, i sleep," and also motioned with his hand to go out of his room with the ipad and repeated, "no more, i sleep please." RN called Mina and informed that patient would like to sleep and Mina yelled and screamed at RN reporting that he will report her to administration if RN did not call father on face time. Mina hung up on RN. A few minutes later son on face sheet called RN and started to yell and scream at RN to put patient on the phone for 10 minutes. RN calmly directed the patients son to call back in the morning, however son repeatedly yelled at nurse to face time father even though he is sleeping. display fabrication supervisor on shift alerted. Son's will call nursing supervisor ditching, phone number provided.
--- NOTE | 2019-12-19 22:30 | NUR ---
patient son informed nursing finishing room supervisor that he would like to face time his father and have the RN show proof that father is sleeping. son called and proof provided that father was sleeping. patients son saw patient sleeping and snoring in bed.
--- NOTE | 2019-12-19 23:00 | NUR ---
patient son informed nursing bleach supervisor that he would like to face time his father and have the RN show proof that father is sleeping. son called and proof provided that father was sleeping through face time. patients son saw patient sleeping and snoring in bed.
--- NOTE | 2019-12-20 00:04 | NUR ---
patient snoring and sound asleep
[2019-12-20 00:15] VITALS: BP 137/56
[2019-12-20 04:40] VITALS: BP 154/64
--- NOTE | 2019-12-20 05:03 | NUR ---
patient slept comfortably throughout the night. aaox3. able to verbalize needs. no s/s of acute distress noted. NSR on tele monitor. on 2L NC sat at 97%. v/s stable. Gonzalez catheter flowing via gravity patent and intact with clear yellow urine noted. PIV on R hand intact and patent. patient pulled out PIV on left hand at beginning of shift. no bleeding noted. he reported, "no need for another IV line, same thing as right hand." all medication administered without ASE. all needs met. fall precautions in place and call light within reach. will continue to monitor and reassess until morning endorsement.
[2019-12-20] MEDS: PANTOPRAZOLE SODIUM 40 MG TABLET.DR PO SCH (06:01)
[2019-12-20 06:06] LABS: HEPATITIS B SURFACE AG Negative (Negative)
[2019-12-20] MEDS: BLOOD SUGAR DIAGNOSTIC 1 EACH STRIP VI SCH ×4 (06:40→20:29)
[2019-12-20 06:50] LABS: BASOPHILS % (AUTO) 0.3 % (0.0-2.0); EOSINOPHILS # (AUTO) 0.2 K/uL (0.0-0.7); EOSINOPHILS % (AUTO) 1.5 % (0.0-7.0); HEMATOCRIT 22.9 % (36.7-47.1); HEMOGLOBIN 7.9 g/dL (12.5-16.3); LYMPHOCYTES # (AUTO) 0.6 K/uL (20.0-40.0); LYMPHOCYTES % (AUTO) 5.9 % (20.5-51.5); MEAN CORPUSCULAR HEMOGLOBIN 31.7 uug (23.8-33.4); MEAN CORPUSCULAR HGB CONC 34 g/dL (32.5-36.3); MEAN CORPUSCULAR VOLUME 92.4 fL (73.0-96.2); MONOCYTES # (AUTO) 1.2 K/uL (2.0-10.0); NEUTROPHILS # (AUTO) 8.3 K/uL (1.8-8.9); NEUTROPHILS % (AUTO) 80.3 % (38.5-71.5); PLATELET COUNT (AUTO) 177 K/uL (152-348); WHITE BLOOD COUNT (AUTO) 10.3 K/uL (3.6-10.2)
[2019-12-20 07:08] LABS: RED BLOOD CELL COUNT(AUTO) 2.48 MIL/uL (4.06-5.63)
[2019-12-20 07:19] LABS: CARBON DIOXIDE 32 mmol/L (21-32); CHLORIDE 100 mmol/L (98-107); CREATININE 3.9 mg/dL (0.6-1.3); GLUCOSE 138 mg/dL (74-106); POTASSIUM 3.7 mmol/L (3.5-5.1); UREA NITROGEN, BLOOD 57 mg/dL (7-18)
--- NOTE | 2019-12-20 07:30 | NUR ---
Received patient in bed with ongoing HD. No signs of distress noted. No SOB. No signs of discomfort noted. Will continue to monitor.
[2019-12-20] MEDS: CARVEDILOL 6.25 MG TABLET PO SCH ×2 (08:00→17:20)
--- NOTE | 2019-12-20 08:49 | NUR ---
HD done, output of 2L.
[2019-12-20] MEDS: BUMETANIDE 1 MG TABLET PO SCH (09:11)
[2019-12-20] MEDS: RANOLAZINE 500 MG TAB.ER.12H PO SCH ×2 (09:11→20:26)
[2019-12-20] MEDS: ASPIRIN 81 MG TAB.CHEW PO SCH (09:11)
[2019-12-20] MEDS: AMIODARONE HCL 200 MG TABLET PO SCH (09:11)
[2019-12-20 11:21] VITALS: BP 136/58
[2019-12-20] MEDS: INSULIN REGULAR, HUMAN 300 UNIT/3 ML VIAL SQ PRN ×3 (11:45→20:31)
[2019-12-20 16:27] VITALS: BP 111/63
[2019-12-20] MEDS: APIXABAN 5 MG TABLET PO SCH (17:22)
--- NOTE | 2019-12-20 17:38 | NUR ---
Patient in bed, awake and verbally responsive. patient on Room Air saturating 95-97%. No SOB noted. Afebrile. No complain of Chest pain or discomfort. latest Blood sugar 208, gave 4 units per sliding scale. All needs attended and met. Will continue to monitor.
--- NOTE | 2019-12-20 19:30 | NUR ---
Received patient calm and lying in bed. Patient is on RA saturation at 97-99%. Denies SOB and chest pain at this time. No signs or symptoms of acute distress noted at this time. IV in right hand patent and intact. Gonzalez intact and draining via gravity. Bilateral SCDs on. Bed locked and in low position. Safety measures in place and will continue to monitor.
[2019-12-20 20:24] VITALS: BP 140/60
[2019-12-20] MEDS: ATORVASTATIN 40 MG TABLET PO SCH (20:26)
[2019-12-21 00:57] VITALS: BP 135/64
[2019-12-21] MEDS: HYDROCODONE/APAP 5-325MG TABLET PO PRN (01:16)
[2019-12-21 06:08] VITALS: BP 134/57
[2019-12-21] MEDS: PANTOPRAZOLE SODIUM 40 MG TABLET.DR PO SCH (06:35)
[2019-12-21] MEDS: BLOOD SUGAR DIAGNOSTIC 1 EACH STRIP VI SCH ×3 (06:35→17:19)
[2019-12-21 06:50] LABS: BASOPHILS % (AUTO) 0.3 % (0.0-2.0); EOSINOPHILS # (AUTO) 0.2 K/uL (0.0-0.7); EOSINOPHILS % (AUTO) 1.7 % (0.0-7.0); HEMATOCRIT 22.3 % (36.7-47.1); HEMOGLOBIN 7.7 g/dL (12.5-16.3); LYMPHOCYTES % (AUTO) 9.1 % (20.5-51.5); MEAN CORPUSCULAR HEMOGLOBIN 31.7 uug (23.8-33.4); MEAN CORPUSCULAR HGB CONC 34 g/dL (32.5-36.3); MEAN CORPUSCULAR VOLUME 92.3 fL (73.0-96.2); MONOCYTES # (AUTO) 1.3 K/uL (2.0-10.0); MONOCYTES % (AUTO) 11.4 % (0.0-11.0); NEUTROPHILS # (AUTO) 8.8 K/uL (1.8-8.9); NEUTROPHILS % (AUTO) 77.5 % (38.5-71.5); PLATELET COUNT (AUTO) 208 K/uL (152-348); WHITE BLOOD COUNT (AUTO) 11.3 K/uL (3.6-10.2)
[2019-12-21 06:57] LABS: CARBON DIOXIDE 31 mmol/L (21-32); CHLORIDE 99 mmol/L (98-107); CREATININE 3.9 mg/dL (0.6-1.3); GLUCOSE 169 mg/dL (74-106); POTASSIUM 3.6 mmol/L (3.5-5.1); UREA NITROGEN, BLOOD 57 mg/dL (7-18)
[2019-12-21 07:00] LABS: RED BLOOD CELL COUNT(AUTO) 2.42 MIL/uL (4.06-5.63)
--- NOTE | 2019-12-21 07:30 | NUR ---
on bed, resting. no distress noted.
[2019-12-21] MEDS: APIXABAN 5 MG TABLET PO SCH ×2 (09:12→17:22)
[2019-12-21] MEDS: BUMETANIDE 1 MG TABLET PO SCH (09:13)
[2019-12-21] MEDS: ASPIRIN 81 MG TAB.CHEW PO SCH (09:13)
[2019-12-21] MEDS: RANOLAZINE 500 MG TAB.ER.12H PO SCH (09:13)
[2019-12-21] MEDS: CARVEDILOL 6.25 MG TABLET PO SCH ×2 (09:14→17:36)
[2019-12-21] MEDS: AMIODARONE HCL 200 MG TABLET PO SCH (09:14)
[2019-12-21] MEDS: INSULIN REGULAR, HUMAN 300 UNIT/3 ML VIAL SQ PRN ×3 (09:22→17:21)
--- NOTE | 2019-12-21 10:08 | NUR ---
Dr Capone aware patient status, made order for discharge home with philip yarbrough PT. Oumou brand planner aware.
--- NOTE | 2019-12-21 11:00 | NUR ---
Seen by OT
[2019-12-21 12:36] VITALS: BP 134/46
--- NOTE | 2019-12-21 13:12 | NUR ---
seen by PT now
[2019-12-21] MEDS ORDERED: AMIO200T6 PO (14:35)
[2019-12-21] MEDS ORDERED: ATOR40TA PO (14:35)
[2019-12-21] MEDS ORDERED: RANO500T3 PO (14:35)
[2019-12-21] MEDS ORDERED: CARV6.252 PO (14:35)
[2019-12-21 16:37] VITALS: BP 143/60
[2019-12-21] MEDS: ACETAMINOPHEN 325 MG TABLET PO PRN (17:35)
[2019-12-21 17:36] VITALS: BP 146/56
--- NOTE | 2019-12-21 18:00 | NUR ---
discussed meds and discharge instruction with liana. verbalized understanding. aware late to come from ambulance
--- NOTE | 2019-12-21 18:40 | NUR ---
patient left in fair condition. has not voided after fc dc. family aware.
== END 2019-12-21 18:40 | disposition home health service (06) | DRG 480 ==
LOC: ER 18:57 → TELE3 23:59 → TELE-TD3 12-17 07:59
PROVIDERS: ADMIT Hospitalist; ATTEND Family Medicine
PROC: 0QS736Z Reposition Left Upper Femur with Intramedullary Internal Fixation Device, Percutaneous Approach (ICD-10-PCS; principal; 2019-12-16)
PROC: 02HV33Z Insertion of Infusion Device into Superior Vena Cava, Percutaneous Approach (ICD-10-PCS; 2019-12-18)
PROC: B518ZZA Fluoroscopy of Superior Vena Cava, Guidance (ICD-10-PCS; 2019-12-18)
PROC: 5A1D70Z Performance of Urinary Filtration, Intermittent, Less than 6 Hours Per Day (ICD-10-PCS; 2019-12-18)
PROC: 30233N1 Transfusion of Nonautologous Red Blood Cells into Peripheral Vein, Percutaneous Approach (ICD-10-PCS; 2019-12-18)
DX: S72.142A Displaced intertrochanteric fracture of left femur, initial encounter for closed fracture (principal); N17.0 Acute kidney failure with tubular necrosis; I13.2 Hypertensive heart and chronic kidney disease with heart failure and with stage 5 chronic kidney disease, or end stage renal disease; N18.5 Chronic kidney disease, stage 5; D68.69 Other thrombophilia; E44.1 Mild protein-calorie malnutrition; E87.1 Hypo-osmolality and hyponatremia; I48.20 Chronic atrial fibrillation, unspecified; I48.92 Unspecified atrial flutter; I50.42 Chronic combined systolic (congestive) and diastolic (congestive) heart failure; W01.0XXA Fall on same level from slipping, tripping and stumbling without subsequent striking against object, initial encounter; Y92.89 Other specified places as the place of occurrence of the external cause; E11.22 Type 2 diabetes mellitus with diabetic chronic kidney disease; I48.0 Paroxysmal atrial fibrillation; E87.6 Hypokalemia; F03.90 Unspecified dementia, unspecified severity, without behavioral disturbance, psychotic disturbance, mood disturbance, and anxiety; I25.5 Ischemic cardiomyopathy; E03.9 Hypothyroidism, unspecified; I25.10 Atherosclerotic heart disease of native coronary artery without angina pectoris; Z79.4 Long term (current) use of insulin; Z79.01 Long term (current) use of anticoagulants; I27.20 Pulmonary hypertension, unspecified; D63.8 Anemia in other chronic diseases classified elsewhere; K21.9 Gastro-esophageal reflux disease without esophagitis; E88.09 Other disorders of plasma-protein metabolism, not elsewhere classified; N40.0 Benign prostatic hyperplasia without lower urinary tract symptoms; S05.12XA Contusion of eyeball and orbital tissues, left eye, initial encounter; N25.0 Renal osteodystrophy; K86.89 Other specified diseases of pancreas
CPT/HCPCS: 36415; 36600; 70030-TC; 70450; 71045; 72125; 73030; 73502; 73503; 73551; 76770; 83550; 83735; 83970; 84100; 84155; 84156; 84165; 84300; 84443; 85018; 85025; 85610; 85730; 86704; 86705; 86706; 86850; 86900; 86901; 86920; 87340; 90937; 93005; 93307; A4649; A4663; C1713; C9113; G0378; J0690; J1100; J1170; J1644; J1815; J2270; J2405; J3370; J3480; J3490; J7030; J7050; J7060; P9016-BL; P9021; Q9967

== ENCOUNTER 2019-12-25 01:21 | Inpatient (IN) | payer MEDICARE, OTHER ==
[~2019-12-25] VITALS: Ht 170.2 cm; Wt 78.9 kg
[2019-12-25] VITALS (11 sets, daily range): BP systolic 107–146; BP diastolic 48–64
[~2019-12-25 01:21] MED LIST changes: -AMIO200T4 PO; +AMIO200T6 PO; +ATOR40TA PO; -BUDE10.2 INH; -CARV25TA2 PO; +CARV6.252 PO; -ISOS20TA8 PO; -LEVO25TA9 PO; +LEVO50TA PO; -MONT10TA22 PO; -SITA50TA PO; +TAMS-3 PO
[2019-12-25] MEDS ORDERED: LIDOCAINE 2% (UROJET) 10 ML JELLY MM ONE ×2 (01:30→01:47)
[2019-12-25] MEDS ORDERED: IV NORMAL SALINE 500 ML BAG IV ONE (01:30)
[2019-12-25 02:00] LABS: BASOPHILS % (AUTO) 0.2 % (0.0-2.0); EOSINOPHILS # (AUTO) 0.1 K/uL (0.0-0.7); EOSINOPHILS % (AUTO) 0.3 % (0.0-7.0); HEMATOCRIT 21.1 % (36.7-47.1); LYMPHOCYTES # (AUTO) 0.9 K/uL (20.0-40.0); LYMPHOCYTES % (AUTO) 4.8 % (20.5-51.5); MEAN CORPUSCULAR HEMOGLOBIN 31.3 uug (23.8-33.4); MEAN CORPUSCULAR HGB CONC 34 g/dL (32.5-36.3); MONOCYTES # (AUTO) 1.1 K/uL (2.0-10.0); MONOCYTES % (AUTO) 5.7 % (0.0-11.0); NEUTROPHILS # (AUTO) 17.6 K/uL (1.8-8.9); PLATELET COUNT (AUTO) 335 K/uL (152-348); WHITE BLOOD COUNT (AUTO) 19.8 K/uL (3.6-10.2)
[2019-12-25 02:00] LABS: *OCCULT BLOOD STOOL NEGATIVE (NEGATIVE)
[2019-12-25 02:01] LABS: CARBON DIOXIDE 26 mmol/L (21-32); CHLORIDE 99 mmol/L (98-107); CREATININE 4.9 mg/dL (0.6-1.3); GLUCOSE 225 mg/dL (74-106); POTASSIUM 4.4 mmol/L (3.5-5.1); RED BLOOD CELL COUNT(AUTO) 2.29 MIL/uL (4.06-5.63); UREA NITROGEN, BLOOD 74 mg/dL (7-18)
[2019-12-25 02:03] LABS: HEMOGLOBIN 7.2 g/dL (12.5-16.3)
[2019-12-25 02:04] LABS: MAGNESIUM 2.2 mg/dL (1.8-2.4); PHOSPHOROUS 5.2 mg/dL (2.5-4.9)
[2019-12-25 02:12] LABS: *BILIRUBIN,URIN NEGATIVE (NEGATIVE); *BLOOD, URINE NEGATIVE (NEGATIVE); *CLARITY,URINE CLEAR (CLEAR); *COLOR,URINE YELLOW (YELLOW); *KETONES,URINE NEGATIVE (NEGATIVE); *UROBILINOGEN,URINE 0.2 E.U./dl (NORMAL); LEUKOCYTE ESTERASE ,URINE NEGATIVE (NEGATIVE); NITRITE, URINE NEGATIVE (NEGATIVE); PH,URINE 5.5 (5.0-8.0); UGLUCOSE NEGATIVE (NEGATIVE)
[2019-12-25 02:19] LABS: ALANINE AMINOTRANSFERASE 32 U/L (16-63); ALKALINE PHOSPHATASE 91 U/L (50-136); ASPARTATE AMINOTRANSFERASE 50 U/L (15-37); BILIRUBIN,DIRECT 0.3 mg/dL (0.0-0.2); BILIRUBIN,TOTAL 0.7 mg/dL (0.2-1.0); LIPASE 117 U/L (73-393); TOTAL PROTEIN, SERUM 5.7 g/dL (6.4-8.2)
[2019-12-25 02:22] LABS: BACTERIA,URINE NONE SEEN /HPF (NONE SEEN); RBC,URINE 0-3 /HPF (0-3); WBC,URINE 0-3 /HPF (0-3)
[2019-12-25] MEDS ORDERED: MAGNESIUM CITRATE 296 ML BOTTLE PO ONE ×2 (05:00→07:15)
[2019-12-25] MEDS ORDERED: DEXTROSE 50% 50 ML DISP.SYRIN IV PRN (05:00)
[2019-12-25] MEDS ORDERED: ONDANSETRON 4 MG/2 ML VIAL IV ONE (05:00)
[2019-12-25] MEDS ORDERED: INSULIN REGULAR, HUMAN 300 UNITS/3 ML VIAL SQ PRN (05:00)
[2019-12-25] MEDS ORDERED: ONDANSETRON 4 MG/2 ML VIAL IV PRN (05:00)
[2019-12-25] MEDS ORDERED: MORPHINE SULFATE 4 MG/1 ML DISP.SYRIN IV ONE (05:00)
[2019-12-25] MEDS ORDERED: HYDROCODONE/APAP 5-325MG TABLET PO PRN (05:00)
[2019-12-25] MEDS ORDERED: Z GUARD REMEDY PASTE 57 GM TUBE TOP PRN (05:00)
[2019-12-25] MEDS ORDERED: MAGNESIUM HYDROXIDE 30 ML LIQUID UDC PO PRN (05:00)
[2019-12-25] MEDS ORDERED: ACETAMINOPHEN 325 MG TABLET PO PRN (05:00)
[2019-12-25] MEDS ORDERED: FLEET ENEMA 133 ML BOTTLE RC PRN (05:00)
[2019-12-25] MEDS ORDERED: MORPHINE SULFATE 4 MG/1 ML DISP.SYRIN ONE (05:01)
[2019-12-25] MEDS ORDERED: ONDANSETRON 4 MG/2 ML VIAL ONE (05:01)
[2019-12-25] MEDS: BLOOD SUGAR DIAGNOSTIC 1 EACH STRIP VI SCH ×4 (07:30→20:47)
[2019-12-25] MEDS ORDERED: Medication Not On Formulary EA (Rosuvastatin Calcium (Crestor) 1 TAB) PO SCH (09:00)
[2019-12-25] MEDS ORDERED: APIXABAN 5 MG TABLET PO SCH (09:00)
[2019-12-25] MEDS ORDERED: RANOLAZINE 500 MG TAB.ER.12H PO SCH (09:00)
[2019-12-25] MEDS: LEVOTHYROXINE SODIUM 50 MCG TABLET PO SCH (09:33)
[2019-12-25] MEDS: ASPIRIN 81 MG TAB.CHEW PO SCH (09:34)
[2019-12-25] MEDS: RANOLAZINE 500 MG TAB.ER.12H PO SCH ×2 (09:34→20:17)
[2019-12-25] MEDS ORDERED: BISACODYL 10 MG SUPP.RECT RC ONE (10:30)
[2019-12-25] MEDS: AMIODARONE HCL 200 MG TABLET PO SCH (12:46)
[2019-12-25] MEDS: PIPERACILLIN/TAZO 2.25 G in IV DEXTROSE 5% 50 ML IV SCH ×2 (13:48→23:36)
[2019-12-25] MEDS: INSULIN REGULAR, HUMAN 300 UNIT/3 ML VIAL SQ PRN ×2 (13:49→16:39)
[2019-12-25] MEDS: ATORVASTATIN 40 MG TABLET PO SCH (20:16)
[2019-12-26] VITALS: BP 141/72
[2019-12-26 04:00] VITALS: BP 145/78
[2019-12-26] MEDS: BLOOD SUGAR DIAGNOSTIC 1 EACH STRIP VI SCH ×4 (05:57→21:26)
[2019-12-26] MEDS: LEVOTHYROXINE SODIUM 50 MCG TABLET PO SCH (06:01)
[2019-12-26] MEDS: RANOLAZINE 500 MG TAB.ER.12H PO SCH ×2 (08:10→20:45)
[2019-12-26] MEDS: ASPIRIN 81 MG TAB.CHEW PO SCH (08:11)
[2019-12-26] MEDS: AMIODARONE HCL 200 MG TABLET PO SCH (08:12)
[2019-12-26 09:46] LABS: BASOPHILS # (AUTO) 0.1 K/uL (0.0-8.0); BASOPHILS % (AUTO) 0.5 % (0.0-2.0); EOSINOPHILS # (AUTO) 0.3 K/uL (0.0-0.7); EOSINOPHILS % (AUTO) 1.7 % (0.0-7.0); HEMATOCRIT 25.8 % (36.7-47.1); HEMOGLOBIN 8.9 g/dL (12.5-16.3); LYMPHOCYTES # (AUTO) 0.8 K/uL (20.0-40.0); LYMPHOCYTES % (AUTO) 4.7 % (20.5-51.5); MEAN CORPUSCULAR HEMOGLOBIN 31.2 uug (23.8-33.4); MEAN CORPUSCULAR HGB CONC 35 g/dL (32.5-36.3); MEAN CORPUSCULAR VOLUME 90.4 fL (73.0-96.2); MONOCYTES # (AUTO) 1.1 K/uL (2.0-10.0); MONOCYTES % (AUTO) 6.4 % (0.0-11.0); NEUTROPHILS # (AUTO) 14.2 K/uL (1.8-8.9); NEUTROPHILS % (AUTO) 86.7 % (38.5-71.5); PLATELET COUNT (AUTO) 303 K/uL (152-348); RED BLOOD CELL COUNT(AUTO) 2.86 MIL/uL (4.06-5.63); WHITE BLOOD COUNT (AUTO) 16.4 K/uL (3.6-10.2)
[2019-12-26 10:00] LABS: ALANINE AMINOTRANSFERASE 29 U/L (16-63); ALKALINE PHOSPHATASE 88 U/L (50-136); ASPARTATE AMINOTRANSFERASE 31 U/L (15-37); BILIRUBIN,TOTAL 0.7 mg/dL (0.2-1.0); CARBON DIOXIDE 24 mmol/L (21-32); CHLORIDE 103 mmol/L (98-107); CREATININE 4.8 mg/dL (0.6-1.3); GLUCOSE 84 mg/dL (74-106); MAGNESIUM 2.2 mg/dL (1.8-2.4); POTASSIUM 3.4 mmol/L (3.5-5.1); TOTAL PROTEIN, SERUM 5.2 g/dL (6.4-8.2)
[2019-12-26 10:02] LABS: UREA NITROGEN, BLOOD 88 mg/dL (7-18)
[2019-12-26 11:42] VITALS: BP 101/55
[2019-12-26] MEDS: PIPERACILLIN/TAZO 2.25 G in IV DEXTROSE 5% 50 ML IV SCH ×2 (13:30→23:15)
[2019-12-26 15:30] VITALS: BP 141/66
[2019-12-26] MEDS: ATORVASTATIN 40 MG TABLET PO SCH (20:45)
[2019-12-26] MEDS: INSULIN REGULAR, HUMAN 300 UNIT/3 ML VIAL SQ PRN (21:00)
[2019-12-26 21:10] VITALS: BP 118/48
[2019-12-27 05:26] VITALS: BP 153/63
[2019-12-27 06:07] LABS: HEPATITIS Be ANTIGEN Negative (Negative)
[2019-12-27] MEDS: LEVOTHYROXINE SODIUM 50 MCG TABLET PO SCH (06:29)
[2019-12-27] MEDS: BLOOD SUGAR DIAGNOSTIC 1 EACH STRIP VI SCH ×4 (06:45→20:37)
[2019-12-27 08:29] LABS: BASOPHILS # (AUTO) 0.1 K/uL (0.0-8.0); BASOPHILS % (AUTO) 0.6 % (0.0-2.0); EOSINOPHILS # (AUTO) 0.3 K/uL (0.0-0.7); EOSINOPHILS % (AUTO) 2.1 % (0.0-7.0); HEMATOCRIT 30.9 % (36.7-47.1); HEMOGLOBIN 10.6 g/dL (12.5-16.3); LYMPHOCYTES # (AUTO) 0.9 K/uL (20.0-40.0); LYMPHOCYTES % (AUTO) 6.7 % (20.5-51.5); MEAN CORPUSCULAR HEMOGLOBIN 31.1 uug (23.8-33.4); MEAN CORPUSCULAR HGB CONC 34 g/dL (32.5-36.3); MEAN CORPUSCULAR VOLUME 90.7 fL (73.0-96.2); MONOCYTES # (AUTO) 1.1 K/uL (2.0-10.0); NEUTROPHILS # (AUTO) 11.7 K/uL (1.8-8.9); NEUTROPHILS % (AUTO) 82.6 % (38.5-71.5); PLATELET COUNT (AUTO) 381 K/uL (152-348); WHITE BLOOD COUNT (AUTO) 14.2 K/uL (3.6-10.2)
[2019-12-27 08:34] LABS: ALANINE AMINOTRANSFERASE 66 U/L (16-63); ALKALINE PHOSPHATASE 122 U/L (50-136); ASPARTATE AMINOTRANSFERASE 61 U/L (15-37); BILIRUBIN,TOTAL 0.7 mg/dL (0.2-1.0); CARBON DIOXIDE 28 mmol/L (21-32); CHLORIDE 103 mmol/L (98-107); CREATININE 4.1 mg/dL (0.6-1.3); GLUCOSE 81 mg/dL (74-106); MAGNESIUM 2.2 mg/dL (1.8-2.4); POTASSIUM 3.6 mmol/L (3.5-5.1); TOTAL PROTEIN, SERUM 5.9 g/dL (6.4-8.2); UREA NITROGEN, BLOOD 67 mg/dL (7-18)
[2019-12-27] MEDS: RANOLAZINE 500 MG TAB.ER.12H PO SCH ×2 (09:29→20:37)
[2019-12-27] MEDS: PROTEIN SUPPLEMENT (PROSTAT) 30 ML LIQUID PO SCH (09:29)
[2019-12-27] MEDS: ASPIRIN 81 MG TAB.CHEW PO SCH (09:29)
[2019-12-27] MEDS: AMIODARONE HCL 200 MG TABLET PO SCH (09:33)
[2019-12-27] MEDS: APIXABAN 5 MG TABLET PO SCH ×2 (11:18→17:57)
[2019-12-27] MEDS: CARVEDILOL 6.25 MG TABLET PO SCH ×2 (11:22→17:53)
[2019-12-27] MEDS: PIPERACILLIN/TAZO 2.25 G in IV DEXTROSE 5% 50 ML IV SCH (11:28)
[2019-12-27 11:30] VITALS: BP 139/55
[2019-12-27 16:00] VITALS: BP 139/64
[2019-12-27 20:18] VITALS: BP 117/84
[2019-12-27] MEDS: ATORVASTATIN 40 MG TABLET PO SCH (20:38)
[2019-12-27] MEDS: MIRTAZAPINE 15 MG TABLET PO SCH (20:38)
[2019-12-28 05:27] VITALS: BP 109/67
[2019-12-28] MEDS: LEVOTHYROXINE SODIUM 50 MCG TABLET PO SCH (06:15)
[2019-12-28] MEDS: BLOOD SUGAR DIAGNOSTIC 1 EACH STRIP VI SCH ×4 (06:31→20:24)
[2019-12-28] MEDS: ASPIRIN 81 MG TAB.CHEW PO SCH (08:13)
[2019-12-28] MEDS: PROTEIN SUPPLEMENT (PROSTAT) 30 ML LIQUID PO SCH (08:13)
[2019-12-28] MEDS: RANOLAZINE 500 MG TAB.ER.12H PO SCH ×2 (08:13→20:24)
[2019-12-28] MEDS: CARVEDILOL 6.25 MG TABLET PO SCH ×2 (08:17→18:00)
[2019-12-28] MEDS: AMIODARONE HCL 200 MG TABLET PO SCH (08:17)
[2019-12-28] MEDS: APIXABAN 5 MG TABLET PO SCH ×2 (08:18→18:48)
[2019-12-28 11:47] VITALS: BP 133/50
[2019-12-28] MEDS: ATORVASTATIN 40 MG TABLET PO SCH (20:24)
[2019-12-28] MEDS: MIRTAZAPINE 15 MG TABLET PO SCH (20:24)
[2019-12-28 20:29] VITALS: BP 136/58
[2019-12-29] MEDS: LEVOTHYROXINE SODIUM 50 MCG TABLET PO SCH (06:25)
[2019-12-29] MEDS: BLOOD SUGAR DIAGNOSTIC 1 EACH STRIP VI SCH ×4 (06:32→20:32)
[2019-12-29 06:47] VITALS: BP 125/59
[2019-12-29] MEDS: INSULIN REGULAR, HUMAN 300 UNIT/3 ML VIAL SQ PRN ×2 (07:44→11:05)
[2019-12-29] MEDS: PROTEIN SUPPLEMENT (PROSTAT) 30 ML LIQUID PO SCH (08:00)
[2019-12-29] MEDS: RANOLAZINE 500 MG TAB.ER.12H PO SCH ×2 (08:04→20:27)
[2019-12-29] MEDS: ASPIRIN 81 MG TAB.CHEW PO SCH (08:04)
[2019-12-29] MEDS: AMIODARONE HCL 200 MG TABLET PO SCH (08:04)
[2019-12-29] MEDS: CARVEDILOL 6.25 MG TABLET PO SCH ×2 (08:04→16:31)
[2019-12-29] MEDS: APIXABAN 5 MG TABLET PO SCH ×2 (08:05→16:35)
[2019-12-29 11:52] VITALS: BP 117/57
[2019-12-29 16:00] VITALS: BP 152/69
[2019-12-29] MEDS ORDERED: PROT30LI PO (16:29)
[2019-12-29] MEDS ORDERED: ATOR10TA PO (16:29)
[2019-12-29] MEDS ORDERED: TAMS-3 PO (16:29)
[2019-12-29] MEDS ORDERED: CARV6.252 PO (16:29)
[2019-12-29] MEDS ORDERED: MIRT15TA7 PO (16:29)
[2019-12-29] MEDS ORDERED: RANO500T3 PO (16:29)
[2019-12-29] MEDS ORDERED: MENT71OI TOP (16:29)
[2019-12-29 20:21] VITALS: BP 142/58
[2019-12-29] MEDS: MIRTAZAPINE 15 MG TABLET PO SCH (20:27)
[2019-12-29] MEDS: ATORVASTATIN 40 MG TABLET PO SCH (20:27)
== END 2019-12-29 20:40 | DRG 371 ==
LOC: ER 01:26 → TELE3 05:46 → MEDSURG3 12-26 17:40
PROVIDERS: ADMIT Internal Medicine; ATTEND Internal Medicine
PROC: 30233N1 Transfusion of Nonautologous Red Blood Cells into Peripheral Vein, Percutaneous Approach (ICD-10-PCS; principal; 2019-12-25)
PROC: 5A1D70Z Performance of Urinary Filtration, Intermittent, Less than 6 Hours Per Day (ICD-10-PCS; 2019-12-26)
DX: A04.9 Bacterial intestinal infection, unspecified (principal); N18.6 End stage renal disease; I50.43 Acute on chronic combined systolic (congestive) and diastolic (congestive) heart failure; G93.41 Metabolic encephalopathy; E43 Unspecified severe protein-calorie malnutrition; I13.2 Hypertensive heart and chronic kidney disease with heart failure and with stage 5 chronic kidney disease, or end stage renal disease; D68.69 Other thrombophilia; I48.92 Unspecified atrial flutter; K62.89 Other specified diseases of anus and rectum; K59.00 Constipation, unspecified; D64.9 Anemia, unspecified; I95.9 Hypotension, unspecified; I48.0 Paroxysmal atrial fibrillation; E11.22 Type 2 diabetes mellitus with diabetic chronic kidney disease; Z99.2 Dependence on renal dialysis; I25.5 Ischemic cardiomyopathy; E83.39 Other disorders of phosphorus metabolism; E78.5 Hyperlipidemia, unspecified; E66.9 Obesity, unspecified; F03.90 Unspecified dementia, unspecified severity, without behavioral disturbance, psychotic disturbance, mood disturbance, and anxiety; I25.10 Atherosclerotic heart disease of native coronary artery without angina pectoris; I25.2 Old myocardial infarction; I27.20 Pulmonary hypertension, unspecified; Z90.49 Acquired absence of other specified parts of digestive tract; Z68.27 Body mass index [BMI] 27.0-27.9, adult; N40.0 Benign prostatic hyperplasia without lower urinary tract symptoms; K21.9 Gastro-esophageal reflux disease without esophagitis; N28.1 Cyst of kidney, acquired; K40.90 Unilateral inguinal hernia, without obstruction or gangrene, not specified as recurrent; Z91.81 History of falling; R91.1 Solitary pulmonary nodule; K86.89 Other specified diseases of pancreas; Z79.01 Long term (current) use of anticoagulants; Z79.4 Long term (current) use of insulin; Z87.442 Personal history of urinary calculi; E86.9 Volume depletion, unspecified; Z96.642 Presence of left artificial hip joint
CPT/HCPCS: 36415; 70030-TC; 71045; 71250; 82378; 83605; 83690; 83735; 84100; 85025; 85730; 86301; 86850; 86900; 86901; 86920; 87040; 87350; 90937; 93005; G0378; J1815; J2270; J2405; J2543; J7040; J7060; P9016-BL; P9021

== ENCOUNTER 2021-02-20 01:39 | Inpatient (IN) | payer MEDICARE, OTHER ==
[2021-02-20] VITALS (37 sets, daily range): BP systolic 86–135; BP diastolic 42–77
[~2021-02-20] VITALS: Ht 170.2 cm; Wt 82.2 kg
[~2021-02-20 01:39] MED LIST changes: +ATOR10TA PO; -ATOR40TA PO; -BUME1TAB8 PO; -BUME2TAB7 PO; -GLIM1TAB PO; -INSU100V7 SQ; +MENT71OI TOP; +MIRT-93 PO; -POTA10TA15 PO; +PROT30LI PO; -ROSU20TA2 PO
[2021-02-20] MEDS ORDERED: IV NS 1000 ML 1,000 ML IV ONE ×2 (02:00→05:15)
[2021-02-20] MEDS ORDERED: VANCOMYCIN IV 1,000 MG in IV DEXTROSE 5% 250 ML IV ONE (02:00)
[2021-02-20] MEDS ORDERED: PIPERACILLIN SODIUM/TAZOBACTAM 3.375 G in IV DEXTROSE 5% 50 ML IV ONE ×2 (02:00→07:00)
[2021-02-20 02:57] LABS: HEMATOCRIT 35.5 % (36.7-47.1); MEAN CORPUSCULAR HEMOGLOBIN 30.3 uug (23.8-33.4); MEAN CORPUSCULAR VOLUME 88.4 fL (73.0-96.2); PLATELET COUNT (AUTO) 205 K/uL (152-348)
[2021-02-20 02:59] LABS: CARBON DIOXIDE 22 mmol/L (21-32); CHLORIDE 94 mmol/L (98-107); CREATININE 5.2 mg/dL (0.6-1.3); GLUCOSE 150 mg/dL (74-106)
[2021-02-20 03:01] LABS: UREA NITROGEN, BLOOD 92 mg/dL (7-18)
[2021-02-20 03:04] LABS: ALANINE AMINOTRANSFERASE 14 U/L (16-63); ALKALINE PHOSPHATASE 68 U/L (50-136); ASPARTATE AMINOTRANSFERASE 19 U/L (15-37); BILIRUBIN,DIRECT 0.2 mg/dL (0.0-0.2); BILIRUBIN,TOTAL 0.6 mg/dL (0.2-1.0); TOTAL PROTEIN, SERUM 6.5 g/dL (6.4-8.2)
[2021-02-20] MEDS ORDERED: INSU100V39 SQ (03:14)
[2021-02-20] MEDS ORDERED: CARV3.12 PO (03:14)
[2021-02-20] MEDS ORDERED: MONT10TA22 PO (03:14)
[2021-02-20] MEDS ORDERED: HYDR-4075 PO (03:14)
[2021-02-20] MEDS ORDERED: CLON0.1T PO (03:14)
[2021-02-20] MEDS ORDERED: ISOS60TA72 PO (03:14)
--- NOTE | 2021-02-20 03:14 | NUR ---
Per son, unknown dosage and frequencies of medications, medication list made by paramedics is more updated. Needs further follow up.
--- NOTE | 2021-02-20 03:40 | NUR ---
Pt out of ER for CT.
--- NOTE | 2021-02-20 04:00 | NUR ---
Return from CT, CXR,NG tube to LCS taped at 60 cm.Upper dentures in cup bedside.Patient awake,alert to verbal.
[2021-02-20] MEDS ORDERED: VANCOMYCIN IV 200 ML ONE (04:21)
[2021-02-20] MEDS ORDERED: PIPERACILLIN SODIUM/TAZO 3.375 GM VIAL ONE (05:46)
--- NOTE | 2021-02-20 05:57 | NUR ---
CALLED [facility], ANDONIAN PAGED.
--- NOTE | 2021-02-20 06:05 | NUR ---
Late entry Patient dov Joshi cell [phone]
[2021-02-20] MEDS: POTASSIUM CHLORIDE 50 ML IV SCH ×6 (06:15→17:23)
[2021-02-20] MEDS ORDERED: POTASSIUM CHLORIDE 50 ML ONE ×4 (06:42→08:58)
[2021-02-20] MEDS ORDERED: ONDANSETRON 4 MG/2 ML VIAL IV PRN ×2 (07:00→10:45)
[2021-02-20] MEDS ORDERED: MAGNESIUM HYDROXIDE 30 ML LIQUID UDC PO PRN (07:00)
[2021-02-20] MEDS ORDERED: IV NS 1000 ML 1,000 ML IV SCH (07:00)
[2021-02-20] MEDS ORDERED: ACETAMINOPHEN 325 MG TABLET PO PRN (07:00)
[2021-02-20] MEDS ORDERED: Z GUARD REMEDY PASTE 57 GM TUBE TOP PRN (07:00)
--- NOTE | 2021-02-20 07:06 | NUR ---
Per Dr Heriberto DAMICO MD advised to call SOD new vehicle sales consultant for perferated large intestine. Called spoke to Dr Dennis Thomason advises he will call nursing superviser for surgical scheduling for this am ETA 09:30. Consent prepared per MDr. Thomason "Exploratory laparotomy with possible tempory colostomy.Written consent as directed. Spoke to patient son who will be coming in this am.
[2021-02-20] MEDS ORDERED: PIPERACILLIN/TAZO 2.25 G in IV DEXTROSE 5% 50 ML IV SCH (08:30)
[2021-02-20] MEDS ORDERED: MIDAZOLAM HCL 2 MG/2 ML VIAL ONE (09:22)
[2021-02-20] MEDS ORDERED: FENTANYL CITRATE 250 MCG/5 ML AMPUL ONE (09:23)
[2021-02-20] MEDS ORDERED: ROCURONIUM BROMIDE 50 MG/5 ML VIAL ONE (09:26)
[2021-02-20] MEDS ORDERED: HYDROMORPHONE 2 MG/1 ML DISP.SYRIN ONE (09:26)
--- NOTE | 2021-02-20 09:35 | NUR ---
Surgery team here to take pt. Levophed received from pharmacy. Started levophed at 0.1 mcg/kg/min. Wt from bed: 79.9 kg
[2021-02-20] MEDS: NOREPINEPHRINE BITARTRATE 8 MG in IV NORMAL SALINE 242 ML IV PRN ×3 (09:37→19:06)
[2021-02-20] MEDS ORDERED: IV NS 1000 ML 1,000 ML IV PRN (10:45)
[2021-02-20] MEDS ORDERED: CEFAZOLIN 1 G VIAL IM ONE (10:54)
[2021-02-20] MEDS ORDERED: METOCLOPRAMIDE HCL 10 MG/2 ML VIAL IV ONE (10:54)
[2021-02-20] MEDS ORDERED: SEVOFLURANE 250 ML BOTTLE IH ONE (10:54)
[2021-02-20] MEDS ORDERED: NEOSTIGMINE METHYLSULFATE 10 MG/10 ML VIAL IM ONE (10:54)
[2021-02-20] MEDS ORDERED: GLYCOPYRROLATE 0.2 MG/ML VIAL IJ ONE (10:54)
[2021-02-20] MEDS ORDERED: LIDOCAINE-MPF 2% 5 ML VIAL IJ ONE (10:54)
[2021-02-20] MEDS ORDERED: ETOMIDATE 20 MG/10 ML VIAL IV ONE (10:54)
[2021-02-20] MEDS ORDERED: ONDANSETRON 4 MG/2 ML VIAL IV ONE (10:54)
--- NOTE | 2021-02-20 12:00 | NUR ---
received patient intubated on ventilator with settings of ac16 tv500 peep 5 [address] fio2 75%. Dr barclay at bedside receiving patient will write orders for patient abg once stabalized. cxr done post intubation from OR done in the unit. patient has mid abdominal dressing clean and dry fresh colostomy back with scant amount of blood, patient with NGT placed on low intermittent suction levophed running at 0.1mcg. patient is arousable and able to move arms. patient placed on restraints and dr barclay ordered for fentanyl drip for sedation and post op pain. report received from ayanna SU
[2021-02-20] MEDS ORDERED: PROPOFOL 100 ML IV PRN (12:15)
[2021-02-20] MEDS ORDERED: MORPHINE SULFATE 2 MG/1 ML DISP.SYRIN IV PRN (13:30)
[2021-02-20 13:58] LABS: ABG HCO3 15.8 mmol/L; ABG PCO2 30.9 mmHg (35.0-45.0); ABG PH 7.326 (7.350-7.450); ABG PO2 154.7 mmHg (75.0-100.0); ABG SITE RIGHT RADIAL; ABG TOTAL HEMOGLOBIN 12.5 G/dL (13.5-18.0); COHb 0.6 % (0.5-1.5); MetHb 0.3 % (0.0-1.5); O2Hb 97.9 % (94.0-97.0); VENT MODE VENT - A/C; VT, ABG 500 mL
[2021-02-20] MEDS: FENTANYL CITRATE/PF 1,000 MCG in IV NORMAL SALINE 80 ML IV PRN (14:21)
[2021-02-20 14:27] LABS: HEMATOCRIT 37.1 % (36.7-47.1); MEAN CORPUSCULAR HEMOGLOBIN 30.9 uug (23.8-33.4); MEAN CORPUSCULAR VOLUME 90.3 fL (73.0-96.2); PLATELET COUNT (AUTO) 215 K/uL (152-348)
[2021-02-20 14:30] LABS: CARBON DIOXIDE 18 mmol/L (21-32); CHLORIDE 96 mmol/L (98-107); GLUCOSE 156 mg/dL (74-106); MAGNESIUM 3.2 mg/dL (1.8-2.4); POTASSIUM 3.2 mmol/L (3.5-5.1)
--- NOTE | 2021-02-20 14:30 | NUR ---
Evon in the unit to see patient orders placed.
[2021-02-20 14:33] LABS: UREA NITROGEN, BLOOD 94 mg/dL (7-18)
[2021-02-20] MEDS: PIPERACILLIN/TAZO 2.25 G in IV DEXTROSE 5% 50 ML IV SCH ×2 (15:00→21:36)
--- NOTE | 2021-02-20 15:21 | NUR ---
Dr. Josue is in the unit reviewed labs and informed of ABG results will place patient on bicarb drip and will have patient dialyzed for tomorrow morning.
[2021-02-20] MEDS: SODIUM BICARBONATE 8.4% 50 MEQ in IV NS 1000 ML 1,000 ML IV PRN (16:27)
[2021-02-20] MEDS: METOCLOPRAMIDE HCL 10 MG/2 ML VIAL IV SCH ×2 (17:22→23:53)
[2021-02-20] MEDS ORDERED: METOCLOPRAMIDE HCL 10 MG/2 ML VIAL IV SCH (18:00)
--- NOTE | 2021-02-20 19:05 | NUR ---
Received patient In bed currently mildly sedated on fentanyl drip, patient able to be aroused easily. Patient is status post exploratory laparotomy with temporary colostomy. Patient remains intubated and on mechanical ventilation, AC 16, Vt 500, Fio2 35%, PEEP 5, SAT 99%. A-fib on the monitor controlled. BP supported by Levophed drip currently @0.2mcg/kg/min. Patient has a vertical surgical incision on the abdomen, dressing left in place, dressing clean, no bleeding. Colostomy lower left abdomen, only slight amount of blood present, no stool present. Patient has 2 peripheral IV lines running the Levophed, fentanyl, and Sodium Bicarbonate drip @50mL/hr. NGT present currently in intermittent suctioning, strict NPO. No signs of distress, not SOB. No complaints of pain.
[2021-02-21] VITALS (62 sets, daily range): BP systolic 81–136; BP diastolic 42–98
[2021-02-21] MEDS: NOREPINEPHRINE BITARTRATE 8 MG in IV NORMAL SALINE 242 ML IV PRN ×4 (02:01→20:33)
[2021-02-21 05:17] LABS: AMYLASE 26 U/L (25-115); LIPASE 28 U/L (73-393)
--- NOTE | 2021-02-21 05:18 | NUR ---
Patient endorsed intubated orally with 8.0 Ettube ~ 21/22 cm, at the lip on ordered settings of AC 16, 500, +5, 35%. No signs of respiratory distress noted. Patient awake but mildly sedated. Suctioned scant amounts of thin walls secretions. No complications noted. Airway is secure and patent with anchorfast [ Ettube location changed Q2]. Vent plugged in to red outlet. Alarms are on and audible. Will continue to monitor.
[2021-02-21] MEDS: FENTANYL CITRATE/PF 1,000 MCG in IV NORMAL SALINE 80 ML IV PRN ×3 (05:32→20:33)
[2021-02-21] MEDS ORDERED: VANCOMYCIN IV 500 MG in IV DEXTROSE 5% 100 ML IV PRN (06:00)
[2021-02-21] MEDS: METOCLOPRAMIDE HCL 10 MG/2 ML VIAL IV SCH ×3 (06:19→17:22)
[2021-02-21] MEDS: PIPERACILLIN/TAZO 2.25 G in IV DEXTROSE 5% 50 ML IV SCH ×3 (06:19→22:17)
[2021-02-21 07:02] LABS: HEMATOCRIT 36.2 % (36.7-47.1); MEAN CORPUSCULAR HEMOGLOBIN 30.5 uug (23.8-33.4); MEAN CORPUSCULAR VOLUME 90.8 fL (73.0-96.2); PLATELET COUNT (AUTO) 277 K/uL (152-348)
[2021-02-21] MEDS: SODIUM BICARBONATE 8.4% 50 MEQ in IV NS 1000 ML 1,000 ML IV PRN ×2 (07:11→20:32)
[2021-02-21 07:43] LABS: CARBON DIOXIDE 15 mmol/L (21-32); CHLORIDE 102 mmol/L (98-107); CREATININE 4.9 mg/dL (0.6-1.3); GLUCOSE 133 mg/dL (74-106); POTASSIUM 3.6 mmol/L (3.5-5.1)
[2021-02-21 07:44] LABS: ALANINE AMINOTRANSFERASE 10 U/L (16-63); ASPARTATE AMINOTRANSFERASE 16 U/L (15-37); BILIRUBIN,TOTAL 0.6 mg/dL (0.2-1.0); PHOSPHOROUS 3.3 mg/dL (2.5-4.9); TOTAL PROTEIN, SERUM 5.6 g/dL (6.4-8.2); TRIGLYCERIDES 131 MG/DL (30-150)
--- NOTE | 2021-02-21 07:45 | NUR ---
Received report from GEORGES Adams. Patient is resting comfortably at 15 degree angle. Remais on aggressive monitoring. Remains on norepinephrine and fentanyl drips. Supporting vascular fluid support in place. Orders reviewed. AC, rate = 16, FiO2 = 35%, PEEP = 5.
[2021-02-21 08:00] LABS: ALKALINE PHOSPHATASE 57 U/L (50-136); CHOLESTEROL 93 mg/dL (<200); HDL CHOLESTEROL 17 mg/dL (40-60)
[2021-02-21 08:09] LABS: ABG BASE EXCESS -10.9 mmol/L; ABG HCO3 13.4 mmol/L; ABG PCO2 26.1 mmHg (35.0-45.0); ABG PH 7.327 (7.350-7.450); ABG PO2 110.5 mmHg (75.0-100.0); ABG SITE RIGHT BRACHIAL; COHb 0.9 % (0.5-1.5); MetHb 0.1 % (0.0-1.5); VENT MODE VENT - A/C16; VT, ABG 500 mL
[2021-02-21 08:14] LABS: UREA NITROGEN, BLOOD 89 mg/dL (7-18)
--- NOTE | 2021-02-21 08:30 | NUR ---
Patient was examined by Dr. Lang, and discussed plans of care. Dr. Mclean examined patient as well at bedside and discussed treatment plans. On continuous monitoring. Repositioned for comfort. All lines patient and influsing appropriate medications and fluids.
[2021-02-21] MEDS ORDERED: ENOXAPARIN SODIUM 40 MG/0.4 ML DISP.SYRIN SQ SCH (09:00)
[2021-02-21] MEDS ORDERED: HEPARIN SODIUM,PORCINE 5,000 UNITS/ML VIAL SQ SCH (09:00)
[2021-02-21] MEDS ORDERED: ENOXAPARIN SODIUM 30 MG/0.3 ML DISP.SYRIN SUBCUT SCH ×2 (09:00)
[2021-02-21] MEDS ORDERED: DEXTROSE 50% 50 ML DISP.SYRIN IV PRN (10:15)
[2021-02-21] MEDS: APIXABAN 2.5 MG TABLET PO SCH ×2 (12:51→20:35)
[2021-02-21] MEDS: AMIODARONE HCL 200 MG TABLET PO SCH (12:51)
[2021-02-21] MEDS ORDERED: VANCOMYCIN IV 1,000 MG in IV DEXTROSE 5% 250 ML IV ONE (14:00)
[2021-02-21] MEDS: BLOOD SUGAR DIAGNOSTIC 1 EACH STRIP VI SCH ×2 (14:00→17:36)
--- NOTE | 2021-02-21 14:10 | NUR ---
Family at bedside educated on disease process and treatment plans. , son, and grandson were present; and explained clinical course.
[2021-02-21 15:55] LABS: ABG BASE EXCESS 7.9 mmol/L; ABG HCO3 32.5 mmol/L; ABG PCO2 44.8 mmHg (35.0-45.0); ABG PH 7.479 (7.350-7.450); ABG PO2 405.1 mmHg (75.0-100.0); ABG SITE RIGHT RADIAL; ABG TOTAL HEMOGLOBIN 14.9 G/dL (13.5-18.0); COHb 0.4 % (0.5-1.5); MetHb 0.3 % (0.0-1.5); O2Hb 99.1 % (94.0-97.0)
[2021-02-21] MEDS: ACETAMINOPHEN 325 MG TABLET PO PRN (18:01)
--- NOTE | 2021-02-21 18:10 | NUR ---
pt rec'd on full vent support, orally intubated 8.0ETT patent and secured with tube hilliard @ approx 22cm lip-line. pt tolerating vent settings well, no vent changes made, no distress noted throughout shift. pt sxn'd as needed, with sm pale thick secretions noted. vent alarms checked and reset. vent plugged into redwall out let. bvm/suction at bedside. cont to monitor and report any changes.
[2021-02-22] VITALS (86 sets, daily range): BP systolic 83–139; BP diastolic 35–88
[2021-02-22] MEDS: METOCLOPRAMIDE HCL 10 MG/2 ML VIAL IV SCH ×5 (01:10→23:25)
[2021-02-22] MEDS: BLOOD SUGAR DIAGNOSTIC 1 EACH STRIP VI SCH ×5 (01:17→23:43)
[2021-02-22 05:32] LABS: HEMATOCRIT 34.7 % (36.7-47.1); MEAN CORPUSCULAR HEMOGLOBIN 30.4 uug (23.8-33.4); MEAN CORPUSCULAR VOLUME 89.2 fL (73.0-96.2); PLATELET COUNT (AUTO) 259 K/uL (152-348)
[2021-02-22 05:45] LABS: CARBON DIOXIDE 22 mmol/L (21-32); CHLORIDE 100 mmol/L (98-107); CREATININE 3.4 mg/dL (0.6-1.3); GLUCOSE 118 mg/dL (74-106); MAGNESIUM 2.4 mg/dL (1.8-2.4); PHOSPHOROUS 2.5 mg/dL (2.5-4.9); POTASSIUM 3.2 mmol/L (3.5-5.1); UREA NITROGEN, BLOOD 49 mg/dL (7-18)
[2021-02-22] MEDS: PIPERACILLIN/TAZO 2.25 G in IV DEXTROSE 5% 50 ML IV SCH ×3 (06:00→22:44)
[2021-02-22] MEDS: FENTANYL CITRATE/PF 1,000 MCG in IV NORMAL SALINE 80 ML IV PRN (06:01)
[2021-02-22] MEDS: SODIUM BICARBONATE 8.4% 50 MEQ in IV NS 1000 ML 1,000 ML IV PRN ×2 (06:01→09:11)
[2021-02-22] MEDS: NOREPINEPHRINE BITARTRATE 8 MG in IV NORMAL SALINE 242 ML IV PRN ×3 (06:01→23:23)
[2021-02-22] MEDS ORDERED: POTASSIUM CHLORIDE 20 MEQ POWDER PACKET GT ONE (07:15)
[2021-02-22] MEDS: AMIODARONE HCL 200 MG TABLET PO SCH (08:29)
[2021-02-22] MEDS: APIXABAN 2.5 MG TABLET PO SCH ×2 (08:30→20:05)
[2021-02-22 09:38] LABS: ABG BASE EXCESS -6.2 mmol/L; ABG HCO3 16.8 mmol/L; ABG PCO2 26.7 mmHg (35.0-45.0); ABG PH 7.417 (7.350-7.450); ABG PO2 81.3 mmHg (75.0-100.0); ABG SITE LEFT BRACHIAL; ABG TOTAL HEMOGLOBIN 12.9 G/dL (13.5-18.0); CPAP,BG 8 cmH20; MetHb 0.3 % (0.0-1.5); O2Hb 95.3 % (94.0-97.0); VENT MODE CPAP
[2021-02-22] MEDS ORDERED: DC PROPOFOL ONCE EXTUBATED XX PRN (10:45)
--- NOTE | 2021-02-22 10:45 | NUR ---
patient extubated at this time by RT and placed on NC. Patient tolerating well at this time an saturating 100%.
--- NOTE | 2021-02-22 10:45 | NUR ---
Doctor Thomason at bedside ordered to start tube feeding at 20ml/hr.
--- NOTE | 2021-02-22 23:23 | NUR ---
bp low 85/60 started Levophed and follow protocol .
[2021-02-22] MEDS: ACETAMINOPHEN 325 MG TABLET PO PRN (23:25)
--- NOTE | 2021-02-22 23:25 | NUR ---
facial grimacing noted and HR 120 TO 130 ,given tylenol crushed medication via the NGT . HOB UP .
[2021-02-22] MEDS: INSULIN REGULAR, HUMAN 300 UNIT/3 ML VIAL SQ PRN (23:43)
--- NOTE | 2021-02-22 23:44 | NUR ---
blood sugar 117 mg/dl .no ISS given .
[2021-02-23] VITALS (59 sets, daily range): BP systolic 86–140; BP diastolic 34–104
[2021-02-23 05:23] LABS: HEMATOCRIT 34.5 % (36.7-47.1); MEAN CORPUSCULAR HEMOGLOBIN 30.2 uug (23.8-33.4); MEAN CORPUSCULAR VOLUME 89.4 fL (73.0-96.2); PLATELET COUNT (AUTO) 270 K/uL (152-348)
[2021-02-23 05:32] LABS: CARBON DIOXIDE 22 mmol/L (21-32); CHLORIDE 103 mmol/L (98-107); CREATININE 3.7 mg/dL (0.6-1.3); GLUCOSE 165 mg/dL (74-106); MAGNESIUM 2.4 mg/dL (1.8-2.4); PHOSPHOROUS 2.8 mg/dL (2.5-4.9); POTASSIUM 3.1 mmol/L (3.5-5.1); UREA NITROGEN, BLOOD 56 mg/dL (7-18)
[2021-02-23] MEDS: PIPERACILLIN/TAZO 2.25 G in IV DEXTROSE 5% 50 ML IV SCH ×3 (05:48→22:54)
[2021-02-23] MEDS: METOCLOPRAMIDE HCL 10 MG/2 ML VIAL IV SCH ×4 (05:50→23:19)
[2021-02-23] MEDS: ACETAMINOPHEN 325 MG TABLET PO PRN (05:56)
[2021-02-23] MEDS: BLOOD SUGAR DIAGNOSTIC 1 EACH STRIP VI SCH ×4 (05:59→23:26)
[2021-02-23] MEDS: INSULIN REGULAR, HUMAN 300 UNIT/3 ML VIAL SQ PRN ×3 (06:01→23:27)
[2021-02-23] MEDS: Z GUARD REMEDY PASTE 57 GM TUBE TOP PRN (06:21)
[2021-02-23] MEDS ORDERED: NEPRO 1000 ML GT PRN (07:15)
[2021-02-23] MEDS ORDERED: POTASSIUM CHLORIDE 20 MEQ POWDER PACKET GT ONE (08:45)
[2021-02-23] MEDS ORDERED: DIGOXIN 500 MCG/2 ML AMP IV ONE (08:45)
[2021-02-23 08:51] LABS: ABG BASE EXCESS -3.7 mmol/L; ABG HCO3 20.1 mmol/L; ABG PCO2 32.5 mmHg (35.0-45.0); ABG PH 7.409 (7.350-7.450); ABG SITE RIGHT RADIAL; ABG TOTAL HEMOGLOBIN 12.3 G/dL (13.5-18.0); COHb 0.7 % (0.5-1.5); MetHb 0.1 % (0.0-1.5); O2Hb 96.2 % (94.0-97.0); VENT MODE Nasal Cannula
[2021-02-23] MEDS: APIXABAN 2.5 MG TABLET PO SCH ×2 (10:01→20:09)
[2021-02-23] MEDS: AMIODARONE HCL 200 MG TABLET PO SCH (10:02)
[2021-02-23] MEDS: MIDODRINE HCL 5 MG TABLET PO SCH ×3 (12:38→22:54)
[2021-02-23] MEDS ORDERED: AMIODARONE HCL IV 450 MG in IV DEXTROSE 5% 250 ML IV PRN (13:30)
[2021-02-23] MEDS ORDERED: AMIODARONE HCL IV 150 MG in IV DEXTROSE 5% 100 ML IV ONE (13:30)
[2021-02-23] MEDS: AMIODARONE HCL IV 450 MG in IV DEXTROSE 5% 250 ML IV PRN ×2 (14:14→23:18)
--- NOTE | 2021-02-23 14:30 | NUR ---
heart consistently in 150s to 160s with dialysis. Dr. meneses ordered for amiodarone drip per protocol
--- NOTE | 2021-02-23 15:28 | NUR ---
passed swallow eval can start on puree diet.
--- NOTE | 2021-02-23 16:24 | NUR ---
If patient eats well with puree dinner than can DC NGT
--- NOTE | 2021-02-23 20:30 | NUR ---
patient family came and brought food from home puree pudding patient tolerated , hob up .
--- NOTE | 2021-02-23 22:30 | NUR ---
checked abdomen area post op site midabdomen area dressing clean dry and intact . left colostomy patent with small form stool.
--- NOTE | 2021-02-23 22:30 | NUR ---
chnaged position off back with pillow and scds used to bilateral legs ,.
[2021-02-24] VITALS (24 sets, daily range): BP systolic 96–142; BP diastolic 59–97
--- NOTE | 2021-02-24 04:30 | NUR ---
am care done and changed soiled linens and gown . turned and reposition patient .
[2021-02-24 05:18] LABS: HEMATOCRIT 33.7 % (36.7-47.1); MEAN CORPUSCULAR HEMOGLOBIN 30.5 uug (23.8-33.4); MEAN CORPUSCULAR VOLUME 89.3 fL (73.0-96.2); PLATELET COUNT (AUTO) 239 K/uL (152-348)
[2021-02-24 05:21] LABS: CARBON DIOXIDE 26 mmol/L (21-32); CHLORIDE 103 mmol/L (98-107); GLUCOSE 156 mg/dL (74-106); POTASSIUM 3.1 mmol/L (3.5-5.1); UREA NITROGEN, BLOOD 39 mg/dL (7-18)
[2021-02-24 05:23] LABS: PHOSPHOROUS 1.7 mg/dL (2.5-4.9)
[2021-02-24] MEDS: METOCLOPRAMIDE HCL 10 MG/2 ML VIAL IV SCH ×4 (05:35→23:40)
[2021-02-24] MEDS: MIDODRINE HCL 5 MG TABLET PO SCH ×3 (05:36→21:09)
[2021-02-24] MEDS: PIPERACILLIN/TAZO 2.25 G in IV DEXTROSE 5% 50 ML IV SCH ×3 (05:37→21:09)
[2021-02-24] MEDS: BLOOD SUGAR DIAGNOSTIC 1 EACH STRIP VI SCH ×4 (06:01→23:47)
[2021-02-24] MEDS: INSULIN REGULAR, HUMAN 300 UNIT/3 ML VIAL SQ PRN ×3 (06:06→23:48)
[2021-02-24] MEDS ORDERED: POTASSIUM CHLORIDE 20 MEQ POWDER PACKET GT ONE (07:15)
[2021-02-24] MEDS: APIXABAN 2.5 MG TABLET PO SCH ×2 (08:59→21:09)
[2021-02-24] MEDS: ACETAMINOPHEN 325 MG TABLET PO PRN (12:25)
--- NOTE | 2021-02-24 12:30 | NUR ---
pt going apneic when sleeping, pt put on O2 via NC at 2L. Rickey made aware, orders for ABG if needed and BIPAP PRN. will continue to monitor
[2021-02-24] MEDS ORDERED: IV NORMAL SALINE 250 ML IV PRN (14:00)
--- NOTE | 2021-02-24 14:02 | NUR ---
Late Entry: Contacted Dr. Mclean to ask if Amiodarone will be continued. Orders received to continue until tomorrow rounding.
[2021-02-24] MEDS: AMIODARONE HCL IV 450 MG in IV DEXTROSE 5% 250 ML IV PRN (15:35)
--- NOTE | 2021-02-24 19:00 | NUR ---
Received patient awake, resting comfortably, A/Ox3, confused; no signs of pain and distress noted. On NC @ 2LPM, O2 sat of 100%. RUC permcath dry and intact; EVERARDO PICC line patent with ongoing Amiodarone drip 0.5mg/min controlled Afib, HR 106 bpm; IV Left wrist SL patent and flushed. No erythema, bleeding or infiltration noted. Post op dressing dry and intact. Colostomy bag intact with minimal fluid output noted. Will continue to monitor closely.
[2021-02-24] MEDS ORDERED: POTASSIUM PHOSPHATE MM 15 MMOL in IV NORMAL SALINE 250 ML IV ONE (20:00)
--- NOTE | 2021-02-24 21:00 | NUR ---
Family members at bedside, report given.
--- NOTE | 2021-02-24 23:00 | NUR ---
Patient is very confused, pulled out PICC line with tip intact @ 46cm, colostomy bag, BP cuff & post op dressing. Placed pressure dressing at PICC line site, replaced colostomy bag, and post op dressing. Called [facility] exchange and awaiting for callback. Will continue to monitor closely.
--- NOTE | 2021-02-24 23:10 | NUR ---
Spoke with Dr. Keller regarding patient's condition, with new orders. Noted and carried out. Bilateral soft wrist applied as ordered, monitor CMS every 2hours. Ativan 1mg IV given as ordered. Will continue to monitor closely.
[2021-02-24] MEDS ORDERED: LORAZEPAM 2 MG/1 ML VIAL IV PRN (23:30)
[2021-02-24] MEDS ORDERED: HALOPERIDOL LACTATE 5 MG/1 ML VIAL IM PRN (23:30)
[2021-02-25] VITALS (23 sets, daily range): BP systolic 114–151; BP diastolic 44–107
--- NOTE | 2021-02-25 03:30 | NUR ---
AM care, skin care done. Linen changed.
[2021-02-25] MEDS: AMIODARONE HCL IV 450 MG in IV DEXTROSE 5% 250 ML IV PRN (04:41)
[2021-02-25] MEDS: PIPERACILLIN/TAZO 2.25 G in IV DEXTROSE 5% 50 ML IV SCH ×3 (05:33→21:34)
[2021-02-25] MEDS: MIDODRINE HCL 5 MG TABLET PO SCH ×3 (05:34→21:34)
[2021-02-25] MEDS: METOCLOPRAMIDE HCL 10 MG/2 ML VIAL IV SCH (05:34)
[2021-02-25] MEDS: BLOOD SUGAR DIAGNOSTIC 1 EACH STRIP VI SCH ×4 (05:41→23:57)
[2021-02-25] MEDS: Z GUARD REMEDY PASTE 57 GM TUBE TOP PRN (05:42)
[2021-02-25 05:58] LABS: CARBON DIOXIDE 27 mmol/L (21-32); CHLORIDE 101 mmol/L (98-107); CREATININE 3.3 mg/dL (0.6-1.3); GLUCOSE 115 mg/dL (74-106); POTASSIUM 3.6 mmol/L (3.5-5.1); UREA NITROGEN, BLOOD 42 mg/dL (7-18)
[2021-02-25 05:59] LABS: MEAN CORPUSCULAR HEMOGLOBIN 30.6 uug (23.8-33.4); MEAN CORPUSCULAR VOLUME 89.7 fL (73.0-96.2); PLATELET COUNT (AUTO) 286 K/uL (152-348)
--- NOTE | 2021-02-25 06:15 | NUR ---
Hemodialysis started c/o Michael SU. No signs of distress noted. Will continue to monitor.
[2021-02-25 06:38] LABS: HEPATITIS B SURFACE AG NEGATIVE
[2021-02-25 06:59] LABS: MAGNESIUM 2.2 mg/dL (1.8-2.4)
--- NOTE | 2021-02-25 07:22 | NUR ---
Left patient with ongoing hemodialysis. No signs of acute distress noted. VSS. Endorsed to GEORGES Lagos.
--- NOTE | 2021-02-25 07:54 | NUR ---
received change of shift report from shift supervisor film processing GEORGES Teague. Pt currently receiving dialysis, GEORGES Rodriguez at bedside. pt VSS, pt on 2L O2 via nasal cannula, no signs of distress, no reports of pain. MD orders to stop amio drip, will continue with plan of care.
[2021-02-25] MEDS ORDERED: METOPROLOL SUCCINATE XL 50 MG TAB.SR.24H PO SCH (09:00)
[2021-02-25] MEDS: AMIODARONE HCL 200 MG TABLET PO SCH (09:10)
[2021-02-25] MEDS: APIXABAN 2.5 MG TABLET PO SCH ×2 (09:11→20:09)
[2021-02-25] MEDS: METOPROLOL SUCCINATE XL 50 MG TAB.SR.24H PO SCH (09:12)
[2021-02-25] MEDS: METOCLOPRAMIDE HCL 5 MG TABLET PO SCH ×3 (12:10→23:52)
[2021-02-25 13:48] LABS: ABG BASE EXCESS 1.9 mmol/L; ABG HCO3 23.3 mmol/L; ABG PCO2 27.4 mmHg (35.0-45.0); ABG PH 7.548 (7.350-7.450); ABG PO2 64.3 mmHg (75.0-100.0); ABG SITE LEFT RADIAL; ABG TOTAL HEMOGLOBIN 12.5 G/dL (13.5-18.0); COHb 1.5 % (0.5-1.5); MetHb 0.3 % (0.0-1.5); O2Hb 93.4 % (94.0-97.0); VENT MODE Nasal Cannula
--- NOTE | 2021-02-25 16:08 | NUR ---
pt has been lethargic all day, responds to sternal rub and positional changes. pt not awake enough to swallow crushed medications in food, possibly aspiration may occur. Hospitalist made aware, will continue to monitor.
--- NOTE | 2021-02-25 18:19 | NUR ---
PHONE CALL DR. VELAZQUEZ TO CONFIRM ORDERS: CT NECK WITH CONTRAST CT ABDOMEN WITH CONTRAST CT PELVIS WITH CONTRAST PATIENTS CREAT AT 3.3 (H) BUN AT 42 (H) PHONED GEORGES LAWLER, DIALYSIS ORDERED 02/27/2021 PER BUCKY. CONFIRMED TO DO CT NECK, ABDOMEN, PELVIS TOMORROW EVENING CLOSER TO DIALYSIS TREATMENT.
--- NOTE | 2021-02-25 19:30 | NUR ---
patient family at b/s and updated with patient status and condition and questions answered.
--- NOTE | 2021-02-25 20:30 | NUR ---
patient alert ,awake as per family he is able to recognized and his coherent .
--- NOTE | 2021-02-25 21:00 | NUR ---
due medication crushed and given with applesauce, patient able to swallow.
--- NOTE | 2021-02-25 21:30 | NUR ---
changed soiled linens and gown, patient incontinent of urine . z guard applied to back and bilateral groin area .
[2021-02-25] MEDS: ACETAMINOPHEN 325 MG TABLET PO PRN (21:35)
--- NOTE | 2021-02-25 22:00 | NUR ---
turned and reposition patient and offloaded back with pillows . heels off the bed scds used .
--- NOTE | 2021-02-25 22:45 | NUR ---
TRIES TO GET OOB AND REORIENTED TO TIME PLACED AND EQUIPMENT . ADVISED TO CALL FOR ASSISTANCE . FOLLOW SIMPLE COMMANDS .
[2021-02-25] MEDS: INSULIN REGULAR, HUMAN 300 UNIT/3 ML VIAL SQ PRN (23:57)
--- NOTE | 2021-02-25 23:58 | NUR ---
fingerstick 140 mg/dl patient poor eater .
[2021-02-26] VITALS (15 sets, daily range): BP systolic 105–140; BP diastolic 56–99
--- NOTE | 2021-02-26 02:00 | NUR ---
TURNED AND REPOSITION PATIENT ,LOTION APPLIED TO THE BACK AND BILATERAL GROIN .
[2021-02-26 04:29] LABS: HEMATOCRIT 34.7 % (36.7-47.1); MEAN CORPUSCULAR HEMOGLOBIN 30.1 uug (23.8-33.4); MEAN CORPUSCULAR VOLUME 89.3 fL (73.0-96.2); PLATELET COUNT (AUTO) 258 K/uL (152-348)
[2021-02-26 05:10] LABS: CARBON DIOXIDE 26 mmol/L (21-32); CHLORIDE 103 mmol/L (98-107); CREATININE 2.6 mg/dL (0.6-1.3); GLUCOSE 110 mg/dL (74-106); POTASSIUM 3.8 mmol/L (3.5-5.1); UREA NITROGEN, BLOOD 28 mg/dL (7-18)
[2021-02-26] MEDS: BLOOD SUGAR DIAGNOSTIC 1 EACH STRIP VI SCH ×4 (05:32→23:44)
[2021-02-26] MEDS: PIPERACILLIN/TAZO 2.25 G in IV DEXTROSE 5% 50 ML IV SCH ×3 (05:33→23:39)
[2021-02-26] MEDS: METOCLOPRAMIDE HCL 5 MG TABLET PO SCH ×3 (05:33→17:22)
[2021-02-26] MEDS: MIDODRINE HCL 5 MG TABLET PO SCH ×3 (05:34→23:38)
[2021-02-26 05:47] LABS: MAGNESIUM 2.1 mg/dL (1.8-2.4); PHOSPHOROUS 2.8 mg/dL (2.5-4.9)
--- NOTE | 2021-02-26 06:00 | NUR ---
FINGERSTICK DONE AND FOLLOW INSULIN SLIDING SCALE.
--- NOTE | 2021-02-26 08:00 | NUR ---
received change of shift report from doping supervisor. pt in bed, eyes open, more alert than the day before. colostomy changed, liquid stool. pt eating more this morning, pt ate 100% breakfast, no signs of aspiration, no coughing noted. pt on O2 at 1L via NC, will continue to monitor.
[2021-02-26 08:06] LABS: *IMMUNOGLOBULIN G, SERUM 1185 mg/dL (603-1613); IMMUNOGLOBULIN A, SERUM 304 mg/dL (61-437); IMMUNOGLOBULIN M, SERUM 60 mg/dL (15-143)
[2021-02-26] MEDS: AMIODARONE HCL 200 MG TABLET PO SCH (08:18)
[2021-02-26] MEDS: METOPROLOL SUCCINATE XL 50 MG TAB.SR.24H PO SCH (08:19)
[2021-02-26] MEDS: APIXABAN 2.5 MG TABLET PO SCH ×2 (08:20→23:40)
[2021-02-26] MEDS ORDERED: METOPROLOL SUCCINATE XL 50 MG TAB.SR.24H PO ONE (09:45)
[2021-02-26] MEDS: ACETAMINOPHEN 325 MG TABLET PO PRN (10:34)
[2021-02-26] MEDS ORDERED: TRAMADOL HCL 50 MG TABLET PO PRN ×2 (11:15→11:30)
[2021-02-26] MEDS: INSULIN REGULAR, HUMAN 300 UNIT/3 ML VIAL SQ PRN ×2 (12:11→17:29)
--- NOTE | 2021-02-26 14:00 | NUR ---
pt downgraded to tele status, pt transferred to tele unit, room 306 bed A, report given to GEORGES Barbosa. pt a/o x2 Indonesian speaking, family at bedside. has all belongings, VSS, pt on room air, no signs of distress, no reports of pain at this time.
--- NOTE | 2021-02-26 14:15 | NUR ---
Pt received to care, awake, confused, calm at this time. Report received from GEORGES Santa. Iv site is intact and functioning. Pt was changed. Side rails are up. NO distress noted. Pt's is at bed site.
[2021-02-26] MEDS ORDERED: DEXTROSE 50% 50 ML DISP.SYRIN IV PRN (17:00)
[2021-02-27] VITALS: BP 131/61
[2021-02-27] MEDS: PIPERACILLIN/TAZO 2.25 G in IV DEXTROSE 5% 50 ML IV SCH ×3 (00:32→21:06)
[2021-02-27] MEDS: METOCLOPRAMIDE HCL 5 MG TABLET PO SCH ×4 (00:36→18:29)
[2021-02-27 04:00] VITALS: BP 138/86
[2021-02-27] MEDS: MIDODRINE HCL 5 MG TABLET PO SCH ×3 (06:00→21:05)
[2021-02-27] MEDS: BLOOD SUGAR DIAGNOSTIC 1 EACH STRIP VI SCH ×4 (06:29→21:15)
[2021-02-27 07:57] LABS: HEMATOCRIT 36.2 % (36.7-47.1); MEAN CORPUSCULAR VOLUME 90.3 fL (73.0-96.2); PLATELET COUNT (AUTO) 262 K/uL (152-348)
--- NOTE | 2021-02-27 08:00 | NUR ---
Aspiration precaution implemented. KCI bed inflated. Colostomy bag draining soft brownish liquid stool. Turn pt q 2 hrs implemented. PT is in no acute distress
[2021-02-27 08:18] LABS: CARBON DIOXIDE 26 mmol/L (21-32); CHLORIDE 105 mmol/L (98-107); GLUCOSE 121 mg/dL (74-106); POTASSIUM 2.9 mmol/L (3.5-5.1); UREA NITROGEN, BLOOD 35 mg/dL (7-18)
[2021-02-27] MEDS: APIXABAN 2.5 MG TABLET PO SCH ×2 (08:46→21:15)
[2021-02-27] MEDS: AMIODARONE HCL 200 MG TABLET PO SCH (08:50)
[2021-02-27] MEDS: METOPROLOL SUCCINATE XL 50 MG TAB.SR.24H PO SCH (08:50)
[2021-02-27] MEDS ORDERED: POTASSIUM CHLORIDE 20 MEQ TAB.PRT.SR PO ONE (10:00)
[2021-02-27 11:21] VITALS: BP 120/63
[2021-02-27] MEDS: INSULIN REGULAR, HUMAN 300 UNIT/3 ML VIAL SQ PRN ×3 (12:24→21:16)
[2021-02-27 16:15] VITALS: BP 147/92
[2021-02-27 22:19] VITALS: BP 126/72
[2021-02-28 00:27] VITALS: BP 159/85
--- NOTE | 2021-02-28 00:53 | NUR ---
PT sleeping comfortably. Reglan held.
[2021-02-28] MEDS: PIPERACILLIN/TAZO 2.25 G in IV DEXTROSE 5% 50 ML IV SCH ×3 (05:36→22:26)
[2021-02-28] MEDS: MIDODRINE HCL 5 MG TABLET PO SCH (05:36)
[2021-02-28] MEDS: METOCLOPRAMIDE HCL 5 MG TABLET PO SCH ×5 (05:36→23:10)
[2021-02-28] MEDS: BLOOD SUGAR DIAGNOSTIC 1 EACH STRIP VI SCH ×4 (05:48→20:45)
[2021-02-28 06:06] LABS: A/G RATIO 0.8 (0.7-1.7); ALBUMIN 2.5 g/dL (2.9-4.4); ALPHA-1-GLOBULIN 0.4 g/dL (0.0-0.4); ALPHA-2-GLOBULIN 0.8 g/dL (0.4-1.0); BETA GLOBULIN 0.8 g/dL (0.7-1.3); GAMMA GLOBULIN 1.1 g/dL (0.4-1.8); GLOBULIN, TOTAL 3.1 g/dL (2.2-3.9); M-SPIKE Not Observed g/dL (Not Observed)
--- NOTE | 2021-02-28 06:17 | NUR ---
kept pt NPO since midnight for CT abd ordered by DR VELAZQUEZ. Pt has grimacing face gave ultram for pain management. Call light is within reach.
[2021-02-28 06:34] VITALS: BP 159/92
[2021-02-28 06:46] LABS: HEMATOCRIT 35.9 % (36.7-47.1); MEAN CORPUSCULAR HEMOGLOBIN 29.7 uug (23.8-33.4); MEAN CORPUSCULAR VOLUME 90.4 fL (73.0-96.2); PLATELET COUNT (AUTO) 253 K/uL (152-348)
[2021-02-28 07:11] LABS: CARBON DIOXIDE 29 mmol/L (21-32); CHLORIDE 106 mmol/L (98-107); CREATININE 3.3 mg/dL (0.6-1.3); GLUCOSE 102 mg/dL (74-106); POTASSIUM 3.4 mmol/L (3.5-5.1); UREA NITROGEN, BLOOD 37 mg/dL (7-18)
[2021-02-28] MEDS: METOPROLOL SUCCINATE XL 50 MG TAB.SR.24H PO SCH (09:22)
[2021-02-28] MEDS: APIXABAN 2.5 MG TABLET PO SCH ×2 (09:23→20:47)
[2021-02-28] MEDS: AMIODARONE HCL 200 MG TABLET PO SCH (09:23)
--- NOTE | 2021-02-28 11:30 | NUR ---
PATIENT IS VERY CONFUSED AND DISORIENTED PULLED OUT HIS COLOSTOMY BAG AND SMEARED STOOL ALL OVER HIS BED AND BODY CLEANSED DRESSING ON HIS MID ABDOMEN CHANGED ENOC IS DRY AND INTACT COLOSTOMY BAG CHANGED.MADE COMFORTABLE WILL CONTINUE TO OBSERVE.
[2021-02-28 11:49] VITALS: BP 154/72
--- NOTE | 2021-02-28 12:05 | NUR ---
PATIENT SEEN AND EXAMINED BY NÉSTOR VENTURA AND SHE DISCONTINUED THE CT ORDERS AND THE SLT HERE WILL EVAL PATIENT
[2021-02-28] MEDS: INSULIN REGULAR, HUMAN 300 UNIT/3 ML VIAL SQ PRN ×3 (12:18→22:07)
[2021-02-28] MEDS ORDERED: ALBUTEROL SULFATE 1.25 MG/3 ML NEBU NEB PRN (13:00)
[2021-02-28] MEDS ORDERED: IPRATROPIUM BROMIDE 0.5 MG/2.5 ML NEBU NEB PRN (13:00)
--- NOTE | 2021-02-28 15:00 | NUR ---
PATIENT C/O UNABLE TO BREATH HHN DID NOT HELP SAT WAS 97-98 [facility]YS[facility] STARTYED NÉSTOR VENTURA HERE AND AWARE.WILL CONTINUE TO OBSERVE.
[2021-02-28 15:43] VITALS: BP 138/98
--- NOTE | 2021-02-28 18:00 | NUR ---
PATIENT IS IN BED FEELS BETTER BUT REMAINS CONFUSED AND DISORIENTED WILL CONTINUE TO OBSERVE.
--- NOTE | 2021-02-28 18:45 | NUR ---
PATIENT PULLED OUT HIS HEPLOCK UNABLE TO ATTEMPT TO REINSERT AT THIS TIME ENDORSED.
[2021-02-28 20:42] VITALS: BP 140/83
[2021-02-28] MEDS: Z GUARD REMEDY PASTE 57 GM TUBE TOP SCH (21:07)
[2021-03-01 00:04] VITALS: BP 135/84
[2021-03-01 04:42] VITALS: BP 133/71
[2021-03-01] MEDS: PIPERACILLIN/TAZO 2.25 G in IV DEXTROSE 5% 50 ML IV SCH ×3 (05:01→21:01)
[2021-03-01] MEDS: METOCLOPRAMIDE HCL 5 MG TABLET PO SCH ×4 (05:02→23:22)
--- NOTE | 2021-03-01 05:19 | NUR ---
Pt remains alert to self, tolerating RA, SR-ST on monitor. Pt with occasional congested coughs, no desats noted. HOB elevated maintained. Snacks offered during the night, pt with poor appetite. Colostomy intact. AM care provided, pt turned and repositioned. No skin issues. VSS, afebrile. Continue safety precautions and atb therapy. Continue plan of care.
[2021-03-01] MEDS: BLOOD SUGAR DIAGNOSTIC 1 EACH STRIP VI SCH ×4 (06:31→20:32)
[2021-03-01 07:19] LABS: HEMATOCRIT 34.6 % (36.7-47.1); MEAN CORPUSCULAR HEMOGLOBIN 30.3 uug (23.8-33.4); MEAN CORPUSCULAR VOLUME 90.4 fL (73.0-96.2); PLATELET COUNT (AUTO) 255 K/uL (152-348)
[2021-03-01 07:28] LABS: CARBON DIOXIDE 26 mmol/L (21-32); CHLORIDE 105 mmol/L (98-107); CREATININE 2.4 mg/dL (0.6-1.3); GLUCOSE 147 mg/dL (74-106); POTASSIUM 3.4 mmol/L (3.5-5.1); UREA NITROGEN, BLOOD 26 mg/dL (7-18)
--- NOTE | 2021-03-01 08:00 | NUR ---
awake, confused, head of bed elevated, repositioned for breakfast, right upper chest permacath intact with dsg, abdominal incision with tova- no swelling/redness noted on site, colostomy bag with stool yellowish/brownish, tele afib 90's, safety measures maintained
[2021-03-01] MEDS: METOPROLOL SUCCINATE XL 50 MG TAB.SR.24H PO SCH (10:01)
[2021-03-01] MEDS: AMIODARONE HCL 200 MG TABLET PO SCH (10:01)
[2021-03-01] MEDS: APIXABAN 2.5 MG TABLET PO SCH ×2 (10:03→20:32)
[2021-03-01] MEDS: Z GUARD REMEDY PASTE 57 GM TUBE TOP SCH ×2 (10:05→21:01)
[2021-03-01] MEDS ORDERED: POTASSIUM CHLORIDE 10 MEQ TAB.PRT.SR PO ONE (11:00)
[2021-03-01 12:00] VITALS: BP 151/85
--- NOTE | 2021-03-01 12:00 | NUR ---
family here visiting, repositioned for comfort and meals, aspiration precaution observed
[2021-03-01] MEDS: INSULIN REGULAR, HUMAN 300 UNIT/3 ML VIAL SQ PRN ×3 (12:36→20:33)
[2021-03-01 16:00] VITALS: BP 131/73
--- NOTE | 2021-03-01 16:00 | NUR ---
colostomy bag in place- emptied 500ml of yellowish-brownish liquid stool,needs attended and met
--- NOTE | 2021-03-01 18:00 | NUR ---
no distress noted, safety measures maintained, family at bedside, needs attended and meet
[2021-03-01 20:00] VITALS: BP 153/87
--- NOTE | 2021-03-01 20:00 | NUR ---
Received patient lying in bed. AAOx1-2. Complained of SOB although O2 sat at 96% on RA. Applied O2 at 2LPM via NC and O2 saturation went up to 100%. Patient felt relief after. Denies any pain. Anasarca. A. fib on tele with HR of 107/min. IV site on left FA intact and patent. Perma cath to right chest area. Colostomy in place. Safety measure initiated and call andres within reached.
[2021-03-02 00:06] VITALS: BP 148/79
[2021-03-02 04:18] VITALS: BP 135/75
[2021-03-02] MEDS: METOCLOPRAMIDE HCL 5 MG TABLET PO SCH ×2 (05:41→12:00)
--- NOTE | 2021-03-02 05:59 | NUR ---
Patient slept well last night. No signs or symptoms of pain or SOB. On O2 at 2LPM via NC in place. O2 sat at 99%. A. fib on tele with HR of 101/min. IV site on left FA remains intact and patent. No adverse reaction noted from IV antibiotics. Perma cath to right chest area. Colostomy intact and drained. Safety measure maintained and call andres within reached.
[2021-03-02] MEDS: BLOOD SUGAR DIAGNOSTIC 1 EACH STRIP VI SCH ×3 (06:25→16:41)
[2021-03-02 06:55] LABS: HEMATOCRIT 31.9 % (36.7-47.1); MEAN CORPUSCULAR HEMOGLOBIN 30.7 uug (23.8-33.4); MEAN CORPUSCULAR VOLUME 90.4 fL (73.0-96.2); PLATELET COUNT (AUTO) 228 K/uL (152-348)
[2021-03-02 07:07] LABS: CARBON DIOXIDE 24 mmol/L (21-32); CHLORIDE 105 mmol/L (98-107); CREATININE 2.9 mg/dL (0.6-1.3); GLUCOSE 138 mg/dL (74-106); POTASSIUM 3.5 mmol/L (3.5-5.1); UREA NITROGEN, BLOOD 29 mg/dL (7-18)
[2021-03-02 07:08] LABS: MAGNESIUM 1.8 mg/dL (1.8-2.4)
--- NOTE | 2021-03-02 08:00 | NUR ---
AWAKE ALERT AND VERBALLY RESPONSIVE, DENIES PAIN OR DISTRESS CONTROLLED A-FIB ON MONITOR
[2021-03-02] MEDS: ACETAMINOPHEN 325 MG TABLET PO PRN (08:48)
[2021-03-02] MEDS: AMIODARONE HCL 200 MG TABLET PO SCH (08:52)
[2021-03-02] MEDS: METOPROLOL SUCCINATE XL 50 MG TAB.SR.24H PO SCH (08:52)
[2021-03-02] MEDS: APIXABAN 2.5 MG TABLET PO SCH (08:53)
[2021-03-02] MEDS: Z GUARD REMEDY PASTE 57 GM TUBE TOP SCH (08:54)
--- NOTE | 2021-03-02 10:00 | NUR ---
SEEN BY HOSPITALIST, PLAN DC HOME TODAY WITH HOME HEALTH FOLLOW-UP
[2021-03-02 11:30] VITALS: BP 132/74
--- NOTE | 2021-03-02 11:58 | NUR ---
HEMODIALYSIS STARTED AT BEDSIDE, OBSERVED
[2021-03-02] MEDS ORDERED: APIX2.5T PO (12:41)
[2021-03-02] MEDS ORDERED: METO-357 PO (12:41)
--- NOTE | 2021-03-02 13:09 | NUR ---
1200 dose of reglan not given, patient on HD GOING ON
[2021-03-02 16:00] VITALS: BP 117/73
--- NOTE | 2021-03-02 16:26 | NUR ---
COLOSTOMY EDUCATION AND CARE INSTRUCTION GIVE TO KRISTOFER MANLEY.
[2021-03-02] MEDS: INSULIN REGULAR, HUMAN 300 UNIT/3 ML VIAL SQ PRN (16:45)
--- NOTE | 2021-03-02 17:49 | NUR ---
DISCHARGED HOME VIA AMBULANCE STABLE. SON VINEET NOTIFIED OF DISCHARGE.
== END 2021-03-02 18:00 | disposition home health service (06) | DRG 853 ==
LOC: ER 01:41 → CCU 12:16 → TELE3 02-26 14:22
PROVIDERS: ADMIT Nurse Practitioner Acute Care; ATTEND Nurse Practitioner Acute Care
DX: A41.9 Sepsis, unspecified organism (principal); K63.1 Perforation of intestine (nontraumatic); N17.0 Acute kidney failure with tubular necrosis; J18.9 Pneumonia, unspecified organism; N18.6 End stage renal disease; R65.21 Severe sepsis with septic shock; E43 Unspecified severe protein-calorie malnutrition; J96.01 Acute respiratory failure with hypoxia; K65.9 Peritonitis, unspecified; I13.2 Hypertensive heart and chronic kidney disease with heart failure and with stage 5 chronic kidney disease, or end stage renal disease; I50.22 Chronic systolic (congestive) heart failure; E87.1 Hypo-osmolality and hyponatremia; I48.20 Chronic atrial fibrillation, unspecified; K59.39 Other megacolon; K56.41 Fecal impaction; E11.22 Type 2 diabetes mellitus with diabetic chronic kidney disease; Z99.2 Dependence on renal dialysis; D64.9 Anemia, unspecified; E03.9 Hypothyroidism, unspecified; E78.5 Hyperlipidemia, unspecified; E86.9 Volume depletion, unspecified; E87.6 Hypokalemia; F03.90 Unspecified dementia, unspecified severity, without behavioral disturbance, psychotic disturbance, mood disturbance, and anxiety; I25.10 Atherosclerotic heart disease of native coronary artery without angina pectoris; I25.5 Ischemic cardiomyopathy; I27.20 Pulmonary hypertension, unspecified; I48.0 Paroxysmal atrial fibrillation; K86.9 Disease of pancreas, unspecified; Z79.01 Long term (current) use of anticoagulants; Z79.4 Long term (current) use of insulin; Z79.899 Other long term (current) drug therapy; M19.90 Unspecified osteoarthritis, unspecified site; Z20.822 Contact with and (suspected) exposure to COVID-19; J34.89 Other specified disorders of nose and nasal sinuses; B95.2 Enterococcus as the cause of diseases classified elsewhere; B96.89 Other specified bacterial agents as the cause of diseases classified elsewhere
CPT/HCPCS: 36415; 36569; 36600; 70030-TC; 70450; 70486; 71045; 82378; 82747; 82784; 83550; 83605; 83690; 83735; 83970; 84100; 84155; 84165; 85014; 85025; 85730; 86301; 86334; 86706; 87040; 87070; 87075; 87077; 87340; 90937; 93005; 94002; 94003; 94664; 97161; A4217; A4649; A4663; A6209; G0378; J0282; J0690; J1160; J1170; J1815; J2060; J2250; J2270; J2405; J2543; J2765; J3010; J3370; J3480; J3490; J7030; J7040; J7050; J7060; J8597

== ENCOUNTER 2022-02-11 10:35 | Emergency (ER) | payer MEDICARE, OTHER ==
[~2022-02-11] VITALS: Ht 160 cm; Wt 65.8 kg
[~2022-02-11 10:35] MED LIST changes: -ASPI81TA31 PO; -ATOR10TA PO; -CARV6.252 PO; -DUTA0.5C PO; -FERR325T28 PO; +INSU100V39 SQ; +ISOS60TA72 PO; -MENT71OI TOP; +METO-357 PO; -MIRT-93 PO; +MONT10TA22 PO; -PROT30LI PO; -RANO500T3 PO; -TAMS-3 PO
--- NOTE | 2022-02-11 10:50 | NUR ---
ERMD AT BEDSIDE FOR MSE. EKG MACHINE AT BEDSIDE, ATTEMPTING TO OBTAIN ONE BUT HAVING DIFFICULTIES. RN TROUBLESHOOTING. BEDSIDE MONITOR SHOWS RAPID HEART RATE 158. PT IS AO X 2, SPEAKS LITHUANIAN, DENIES CHEST PAIN/OR ANY OTHER DISCOMFORT. ON 2 LPM O2 FOR RAPID HR, CURRENTLY SATRUATING 99-100%
[2022-02-11] MEDS ORDERED: DUTA0.5C PO (11:04)
[2022-02-11] MEDS ORDERED: MIRT-121 PO (11:04)
[2022-02-11] MEDS ORDERED: MONT10TA22 PO (11:04)
[2022-02-11] MEDS ORDERED: ROSU10TA2 PO (11:04)
[2022-02-11] MEDS ORDERED: CARV6.252 PO (11:04)
[2022-02-11] MEDS ORDERED: AMLO10TA59 PO (11:04)
[2022-02-11] MEDS ORDERED: RANO500T3 PO (11:04)
[2022-02-11] MEDS ORDERED: ASPI81TA31 PO (11:04)
[2022-02-11] MEDS ORDERED: DOCU-141 PO (11:04)
[2022-02-11] MEDS ORDERED: GLIM1TAB18 PO (11:04)
[2022-02-11] MEDS ORDERED: ISOS10TA2 PO (11:04)
[2022-02-11] MEDS ORDERED: SENN-261 PO (11:04)
[2022-02-11] MEDS ORDERED: TAMS-3 PO (11:04)
[2022-02-11] MEDS ORDERED: [UNRECOGNIZED DRUG - CODE] PO (11:04)
[2022-02-11] MEDS ORDERED: FERR325T28 PO (11:04)
[2022-02-11 11:13] LABS: HEMATOCRIT 36.6 % (36.7-47.1); MEAN CORPUSCULAR HEMOGLOBIN 31.8 uug (23.8-33.4); MEAN CORPUSCULAR VOLUME 92.4 fL (73.0-96.2); PLATELET COUNT (AUTO) 176 K/uL (152-348)
[2022-02-11] MEDS ORDERED: IV NORMAL SALINE 1000 ML BAG IV ONE (11:15)
[2022-02-11] MEDS ORDERED: ADENOSINE 6 MG/2 ML SYR IV ONE ×2 (11:15→11:16)
[2022-02-11 11:23] LABS: CARBON DIOXIDE 27 mmol/L (21-32); CHLORIDE 101 mmol/L (98-107); CREATININE 1.9 mg/dL (0.6-1.3); GLUCOSE 169 mg/dL (74-106); POTASSIUM 3.7 mmol/L (3.5-5.1); UREA NITROGEN, BLOOD 34 mg/dL (7-18)
[2022-02-11 11:31] LABS: ALANINE AMINOTRANSFERASE 20 U/L (16-63); ALKALINE PHOSPHATASE 76 U/L (50-136); ASPARTATE AMINOTRANSFERASE 64 U/L (15-37); BILIRUBIN,DIRECT 0.1 mg/dL (0.0-0.2); BILIRUBIN,TOTAL 0.6 mg/dL (0.2-1.0); TOTAL PROTEIN, SERUM 6.8 g/dL (6.4-8.2)
--- NOTE | 2022-02-11 11:49 | NUR ---
PAGED EPIC AT THIS TIME FOR PANEL CALL. PENDING CALL BACK FROM DERICK VILLA
--- NOTE | 2022-02-11 11:50 | NUR ---
NOTIFIED 3RD FLOOR OF ADMISSION, REQUIRING BED. S/W ARMANDO AWAITING CALL BACK FOR BED ASSIGNMENT.
--- NOTE | 2022-02-11 12:03 | NUR ---
PAGED [facility] CARDIOLOGY FOR CONSULT AT THIS TIME. PER ERMD, DUE TO ELEVATED TROPONIN/ABNORMAL EKG.
[2022-02-11 12:05] LABS: LIPASE 66 U/L (73-393)
[2022-02-11] MEDS ORDERED: ASPIRIN 81 MG TAB.CHEW PO ONE (12:15)
[2022-02-11] MEDS ORDERED: ASPIRIN 81 MG TAB.CHEW ONE (12:25)
--- NOTE | 2022-02-11 12:31 | NUR ---
AFTER SEVERAL CALLS WITH CARDIOLOGY DR DALTON/ [facility] AND [facility] TRANSFER CENTER. CARE TEAM DECIDED FOR ER TO ER TRANSFER/FOR HIGHER LEVEL OF CARE. RN SECURING TRANSPORTATION AT THIS TIME.
--- NOTE | 2022-02-11 12:34 | NUR ---
NO ALS AVAILABLE FOR [facility], EARLIEST AVAILABLE ON SUNDAY. NO AVAILABILITY FOR [facility], [facility] AND [facility] FOR TODAY, EARLIEST TOMORROW. NO AVAILABILITY FOR AMBULANZ, EARLIEST POSSIBLE 6 AM TOMORROW. PRN AMBULANCE/UNTIL FURTHER NOTICE. AMBULIFE/BLS ONLY. AM [facility]ST/[facility] 9PM IS THE EARLIEST/CHECKING WITH MD IF HE WANTS THIS OR CALL 911.
--- NOTE | 2022-02-11 12:44 | NUR ---
MD GOODRICH'ED TO SECURE AM [facility] TRANSPORTATION. IF PT EXHIBITS OR C/O CHEST PAIN OR WITH ST ELEVATION, WILL CALL 911. Keagan/W SAMANTHA.
[2022-02-11] MEDS ORDERED: HEPARIN/D5W DRIP 500 ML IV ONE (12:45)
--- NOTE | 2022-02-11 12:50 | NUR ---
CALLED EDILIA/TRANSFER [facility] PRES [phone]. UPDATED ON PTS TRANSFER SITUATION. RN REQUESTED FOR DIRECT ADMIT PROCESS TO BE STARTED SINCE PT IS GOING TO BE WAITING IN OUR ED UNTIL TRANSPORTATION. EDILIA WILL S/W BILLING SPECIALIST AND CALL ME BACK.
[2022-02-11] MEDS ORDERED: HEPARIN/D5W DRIP 500 ML ONE (13:09)
--- NOTE | 2022-02-11 13:12 | NUR ---
PENDING PT/PTT. WILL START HEPARIN DRIP ONCE BASELINE VALUES ARE AVAILABLE.
--- NOTE | 2022-02-11 13:38 | NUR ---
Called Laurent ([employer] channel cementer insole machine/[facility]) [phone] To consult for possible transfer STEMI. Awaiting call back.
--- NOTE | 2022-02-11 13:49 | NUR ---
OBTAINING INFORMATION OF WATER RESOURCES ENGINEER, PREVIOUS INFORMATION FROM MARSHALL GARCES. ON HOLD.
--- NOTE | 2022-02-11 13:54 | NUR ---
PER SHELIA ([facility] OVEN WORKER) DR HERNANDEZ WILL CALL US HERE.
--- NOTE | 2022-02-11 13:59 | NUR ---
DR HERNANDEZ SPEAKING WITH DR MEDEIROS.
--- NOTE | 2022-02-11 14:01 | NUR ---
PER [facility], NO BEDS AVAILABLE TO ACCEPT PATIENT EVEN ICU/TELE. DR DALTON WAS NOTIFIED ([id number]).
--- NOTE | 2022-02-11 14:12 | NUR ---
DR HERNANDEZ/DOESNT CONSIDER STEMI. UNABLET O TRANSFER TO [place] WELL.
--- NOTE | 2022-02-11 14:25 | NUR ---
S/W DELORIS DIRECTOR AGRICULTURAL SERVICES, RE: PT TRANSFER TO [facility] FOR HIGHER LEVEL OF CARE/NSTEMI. AWAITING CALL BACK,.
--- NOTE | 2022-02-11 14:25 | NUR ---
APTT STILL PENDING, HEPARIN DRIP NOT YET STARTED.
--- NOTE | 2022-02-11 14:52 | NUR ---
APTT STILL PENDING/FOLLOWED UP WITH LAB. LAB STATED THAT NO CLOTTING IS HAPPENING, WILL HAVE TO REDRAW. NOTIFIED MD OF THE DELAY RESULTING TO HEPARIN DRIP NOT BEING STARTED YET.
--- NOTE | 2022-02-11 15:04 | NUR ---
MAHENDRA CLAY THROWER IS WAITING FOR DR DALTON'S CONFIRMATION FOR TRANSFER TO [facility]. NOTIFIED HER THAT DR DALTON GAVE VERBAL CONFIRMATION TO DR. HILARIO. SHE WILL CALL ME BACK REGARDING TRANSFER.
--- NOTE | 2022-02-11 15:05 | NUR ---
STENCIL MAKER HAS REDRAWN APTT, WAITING FOR RESULTS.
--- NOTE | 2022-02-11 15:10 | NUR ---
PER ELMA'S REQUEST FAXED PATIENT'S FACESHEET TO: [phone]. BUSY, WILL TRY AGAIN.
--- NOTE | 2022-02-11 15:20 | NUR ---
ROGERS FROM LAB CAME AND STATED THAT APTT REDRAW RESULTED. REVIEWED RESULTS WITH PHARMACIST ON DUTY. PER AMI PROTOCOL, PT TO RECEIVE 15 UNITS/KG/HR BASED ON 65 KG, STARTING RATE IS 975 UNITS/HR. NOE SU WITNESSED. ORDER PLACED TO DO PTT SIX HOURS FROM NOW.
--- NOTE | 2022-02-11 16:00 | NUR ---
PER MAHENDRA RN SUPPORT SERVICES. PT WAS ACCEPTED BY [facility] FOR ICU: DX NSTEMI. UNDER CARE OF HARDIK SAEED/DR DALTON CARDIOLOGY. PT GOING TO ROOM 258. ROOM 258/GIVE REPORT AT 2000 @ [phone] S/W SAMANTHA FROM [facility] AND UPDATED THE PATIENT'S DESTINATION FROM TO [facility].
--- NOTE | 2022-02-11 17:00 | NUR ---
FULL LINEN CHANGE DONE. PT REPOSITIONED AND PLACED IN COMFORT. NO SIGNS OF DISTRESS. CONTINUES TO DENY CHEST PAIN AT THIS TIME. ECG SHOWS SINUS RHYTHM.
--- NOTE | 2022-02-11 18:00 | NUR ---
DR DALTON /CARDIOLOGY AT BEDSIDE.
--- NOTE | 2022-02-11 19:00 | NUR ---
Received report from GEORGES Leon
[2022-02-11] MEDS ORDERED: diphenhydrAMINE 50 MG/1 ML VIAL IV ONE (19:30)
--- NOTE | 2022-02-11 19:52 | NUR ---
Called [facility], endorsed pt. to RN Charly. informed that pickup driver time will be 2100
[2022-02-11] MEDS ORDERED: diphenhydrAMINE 50 MG/1 ML VIAL ONE (19:56)
--- NOTE | 2022-02-11 21:38 | NUR ---
Patient discharged to [facility] endorsed to RN Charly. Picked up by 2 nursery nurse from [facility]. [facility] at this time.
[2022-02-11 21:39] VITALS: BP 110/80
== END 2022-02-11 21:40 | disposition short-term general hospital (02) ==
LOC: ER 10:35
DX: I21.4 Non-ST elevation (NSTEMI) myocardial infarction (principal); I47.1 Supraventricular tachycardia; I13.2 Hypertensive heart and chronic kidney disease with heart failure and with stage 5 chronic kidney disease, or end stage renal disease; N18.6 End stage renal disease; I50.32 Chronic diastolic (congestive) heart failure; Z99.2 Dependence on renal dialysis; I25.5 Ischemic cardiomyopathy; I95.3 Hypotension of hemodialysis; N40.0 Benign prostatic hyperplasia without lower urinary tract symptoms; Z87.01 Personal history of pneumonia (recurrent); E11.22 Type 2 diabetes mellitus with diabetic chronic kidney disease; Z79.84 Long term (current) use of oral hypoglycemic drugs; Z79.01 Long term (current) use of anticoagulants; E03.9 Hypothyroidism, unspecified; Z79.4 Long term (current) use of insulin; Z79.890 Hormone replacement therapy; Z20.822 Contact with and (suspected) exposure to COVID-19
CPT/HCPCS: 99291; 96374; 96375; 96361; 87426; 80076; 80048; 83690; 83735; 85025; 85730 ×2; 87040 ×2; 84484; 36415; 93005; 71045; 83605; J0153; J1200; J1644